=== PATIENT | male | born 1950 | race Caucasian/White ===

== ENCOUNTER 2017-05-26 12:20 | Inpatient (IN) | payer OTHER, BC ==
--- NOTE | 2017-05-26 12:51 | PDOC ---
History of Present Illness - General Chief Complaint: Overdose Stated Complaint: OVERDOSE Time Seen by Provider: 05/26/17 12:48 History Source: Patient, Family (Sister) - History of Present Illness Initial Comments: 05/26/17 13:04 Pt. is a 67 y/o M with PMH of paranoid schizophrenia, HLD, who presents to the ED because there was concern he may have overdosed on his home medication. Patient's sister states that she received a phone call from the patient earlier this morning and he wasn't talking on the other line. She then went to his house to check on him. She found many pill bottles/random pills scattered around the patient. She believes that he may have mixed his pills with alcohol. She states that the patient is currently not acting like himself. Pt. is unable to tell us why he came to the ED. Denies pain, fevers, sob, n/v/d, difficulty breathing. Past History - Travel Traveled outside of the country in the last 30 days: No Close contact w/someone who was outside of country & ill: No - Past Medical History Allergies/Adverse Reactions: Allergies Allergy/AdvReac Type Severity Reaction Status Date / Time No Known Allergies Allergy Verified 05/26/17 12:56 Home Medications: Ambulatory Orders Amitriptyline HCl [Elavil -] 100 mg PO HS 05/26/17 Amlodipine Besylate [Norvasc -] 10 mg PO DAILY 05/26/17 Benztropine Mesylate [Cogentin -] 1 mg PO BID 05/26/17 Chlorpromazine [Thorazine -] 100 mg PO HS 05/26/17 Clonazepam 1 mg PO HS 05/26/17 Perphenazine 8 mg PO DAILY 05/26/17 Rosuvastatin Calcium [Crestor] 10 mg PO DAILY 05/26/17 Triazolam 0.25 mg PO HS 05/26/17 Review of Systems - Review of Systems Able to Perform ROS?: Yes (with help of sister) Comments:: 05/26/17 13:56 CONSTITUTIONAL: Present: altered mental status. Absent: fever, chills, diaphoresis, generalized weakness, malaise, loss of appetite HEENT: Absent: rhinorrhea, nasal congestion, throat pain, throat swelling, difficulty swallowing, mouth swelling, ear pain, eye pain, visual Changes CARDIOVASCULAR: Absent: chest pain, loss of consciousness, palpitations, irregular heart rate, peripheral edema RESPIRATORY: Absent: cough, shortness of breath, dyspnea with exertion, orthopnea, wheezing, stridor, hemoptysis GASTROINTESTINAL: Absent: abdominal pain, abdominal distension, nausea, vomiting, diarrhea, constipation, melena, hematochezia GENITOURINARY: Absent: dysuria, frequency, urgency, hesitancy, hematuria, flank pain, genital pain MUSCULOSKELETAL: Absent: myalgia, arthralgia, joint swelling SKIN: Absent: rash, itching, pallor HEMATOLOGIC/IMMUNOLOGIC: Absent: easy bleeding, easy bruising, lymphadenopathy, frequent infections ENDOCRINE: Absent: unexplained weight gain, unexplained weight loss, heat intolerance, cold intolerance NEUROLOGIC: Absent: headache, focal weakness or paresthesias, dizziness, unsteady gait, seizure, mental status changes, bladder or bowel incontinence PSYCHIATRIC: Absent: anxiety, depression, suicidal or homicidal ideation, hallucinations. *Physical Exam - Physical Exam Comments: 05/26/17 13:54 GENERAL: Well developed, well nourished. Awake and alert x3. No acute distress, breathing easily. O2 sat 94 percent on the monitor. HEENT: Normocephalic, atraumatic. PERRLA, EOMI. No conjunctival pallor. Sclera are non- icteric. Moist mucous membranes. Oropharynx is clear. NECK: Supple. Full ROM. No JVD. Carotid pulses 2+ and symmetric, without bruits. No thyromegaly. No lymphadenopathy. CARDIOVASCULAR: Regular rate and rhythm. No murmurs, rubs, or gallops. Distal pulses are 2+ and symmetric. PULMONARY: No evidence of respiratory distress. Lungs clear to auscultation bilaterally. No wheezing, rales or rhonchi. ABDOMINAL: Soft. Non-tender. Non-distended. No rebound or guarding. No organomegaly. Normoactive bowel sounds. MUSCULOSKELETAL Normal range of motion at all joints. No bony deformities or tenderness. No CVA tenderness. EXTREMITIES: No cyanosis. No clubbing. No edema. No calf tenderness. SKIN: Warm and dry. Normal capillary refill. No rashes. No jaundice. NEUROLOGICAL: Alert, awake, appropriate. Cranial nerves 2-12 intact. No deficits to light touch and temperature in face, upper extremities and lower extremities. No motor deficits in the in face, upper extremities and lower extremities. Normoreflexic in the upper and lower extremities. Normal speech. Toes are down- going bilaterally. Gait is normal without ataxia. PSYCHIATRIC: Though process disjointed. Fair eye contact. Cooperative. ED Treatment Course - LABORATORY CBC & Chemistry Diagram: 05/27/17 06:30 05/27/17 06:30 Medical Decision Making - Medical Decision Making 05/26/17 12:56 Pt. is a 67 y/o M with PMH paranoid schizophrenia, HLD who presents to the ED for possible overdose/AMS after being found with his home medications scattered around him and him not responding. He is currently A&Ox3 however, pt is slow to respond. Pt is taking multiple psych medications will r/o toxicity. Questionable AMS/TIA given phone call with no answer. Will initiate an AMS work up as well. Pt. does drink alcohol 1. CBC, CMP, PT/INR, salycylate, acetaminophen, tricyclic level, UA, Utox 2. Head CT, CXR, EKG 3. IVF 4. Re-evaluate 05/26/17 15:48 Lab work shows an elevated BUN/Cr. Unsure of pt. baseline. Utox is negative. All other tox levels are within normal limits. EKG: Rate 96, NSR, QRS 90, occasional PAC's, Head CT: No acute intracranial hemorrhage, mass effect or hydrocephalus. No compelling evidence of acute transcortical infarction at this time. MRI is more sensitive for detecting acute infarction. CXR: No acute disease. Other than possible RADHA, lab work is unremarkable however patient remains slow in the ED. Sister says that the patient is not at his baseline. Will admit this time for alcoholic encephalopathy. Less likely TIA at this time. Will admit to symphony. 05/26/17 16:[address] Verma. Will take the case for obs. *DC/Admit/Observation/Transfer Diagnosis at time of Disposition: Transient alteration of awareness, Alcoholic encephalopathy - Discharge Dispostion Condition at time of disposition: Stable Admit: Yes - Referrals - Patient Instructions - Post Discharge Activity
[2017-05-26] MEDS ORDERED: SODIUM CHLORIDE 1,000 ML IV STA (12:56)
[2017-05-26 13:28] LABS: BASO % 1.1 % (0-2.0); EOS % 1.1 % (0-4.5); HEMATOCRIT 36.4 % (35.4-49); HEMOGLOBIN 12.4 GM/dL (11.7-16.9); LYMPH % 16.3 % (8-40); MCH 30.3 pg (25.7-33.7); MEAN CELL VOLUME 89.1 fl (80-96); MEAN PLT VOLUME 8.1 fl (7.5-11.1); MONO % 11.9 % (3.8-10.2); NEUT % 69.6 % (42.8-82.8); PLATELET COUNT 199 K/MM3 (134-434); RBC 4.09 M/mm3 (4.00-5.60); RDW 12.9 % (11.9-15.9); WHITE BLOOD COUNT 9.7 K/mm3 (4.0-10.0)
[2017-05-26 13:36] LABS: ACETAMINOPHEN < 10 ug/ml (10.0-30.0); SALICYLATE < 4.0 mg/dl (0.0-30.0)
[2017-05-26 13:37] LABS: ALBUMIN 3.7 g/dl (3.4-5.0); ANION GAP 14 (8-16); BILIRUBIN,TOTAL 0.6 mg/dL (0.2-1.0); BLOOD UREA NITROGEN 30 mg/dL (7-18); CALCIUM 8.8 mg/dL (8.5-10.1); CHLORIDE 101 mmol/L (98-107); CO2 24 mmol/L (21-32); GLUCOSE,RANDOM 98 mg/dL (74-106); SODIUM 139 mmol/L (136-145); TOT PROT 7.5 g/dl (6.4-8.2)
[2017-05-26 13:40] LABS: ALK PHOS 113 U/L (45-117); CREATININE 1.5 mg/dL (0.7-1.3); SGPT/ALT 35 U/L (12-78)
[2017-05-26 13:41] LABS: POTASSIUM 3.9 mmol/L (3.5-5.1); SGOT/AST 33 U/L (15-37)
[2017-05-26 13:50] LABS: INR 0.96 (0.82-1.09); PROTHROMBIN TIME (PATIENT) 10.9 SEC (9.98-11.88)
--- NOTE | 2017-05-26 14:18 | PDOC ---
*Physical Exam - Vital Signs Last Vital Signs Temp Pulse Resp BP Pulse Ox 98.6 F 96 H 18 133/75 100 05/26/17 12:20 05/26/17 12:20 05/26/17 12:20 05/26/17 12:20 05/26/17 13:10 ED Treatment Course - LABORATORY CBC & Chemistry Diagram: 05/26/17 13:00 05/26/17 13:03 - ADDITIONAL ORDERS Additional order review: Laboratory Results 05/26/17 05/26/17 05/26/17 13:03 13:03 13:03 PT with INR 10.90 INR 0.96 Sodium Potassium Chloride Carbon Dioxide Anion Gap BUN Creatinine Creat Clearance w eGFR Random Glucose Calcium Total Bilirubin AST ALT Alkaline Phosphatase Creatine Kinase Creatine Kinase Index CK-MB (CK-2) Troponin I Total Protein Albumin Salicylates < 4.0 Acetaminophen < 10 L Alcohol, Quantitative < 5.0 05/26/17 05/26/17 05/26/17 13:03 13:00 13:00 PT with INR INR Sodium 139 Potassium 3.9 Chloride 101 Carbon Dioxide 24 Anion Gap 14 BUN 30 H Creatinine 1.5 H Creat Clearance w eGFR 46.40 Random Glucose 98 Calcium 8.8 Total Bilirubin 0.6 AST 33 ALT 35 Alkaline Phosphatase 113 Creatine Kinase 219 Cancelled Creatine Kinase Index 0.8 CK-MB (CK-2) 1.885 Troponin I < 0.02 Cancelled Total Protein 7.5 Albumin 3.7 Salicylates Cancelled Acetaminophen Alcohol, Quantitative 05/26/17 13:00 RBC 4.09 MCV 89.1 MCHC 34.0 RDW 12.9 MPV 8.1 Neutrophils % 69.6 Lymphocytes % 16.3 Monocytes % 11.9 H Eosinophils % 1.1 Basophils % 1.1 - RADIOLOGY Radiology Studies Ordered: Category Date Time Status HEAD CT WITHOUT CONTRAST [CT] Stat CT Scan 05/26/17 12:59 Taken CHEST X-RAY PORTABLE* [RAD] Stat Radiology 05/26/17 12:59 Taken Medical Decision Making - Medical Decision Making 05/26/17 14:16 Patient seen and evaluated with the nurse practitioner. I agree with the overall evaluation, assessment, and management with the following summary of visit: 67-year-old male with psychiatric history brought in by family with altered mental status, question nonverbal at the time. Unclear whether patient took extra medications or whether this is presentation of altered mental status. Agree with exam as outlined Altered mental status and tox workup Labs, levels CT head Urinalysis Likely admission 05/26/17 15:[address] head without acute abnormality. still not at baseline, ? alcohol encephalopathy, seems less likely consistent with TIA. will admit overnight for obs until clinically improved *DC/Admit/Observation/Transfer Diagnosis at time of Disposition: Transient alteration of awareness, Alcoholic encephalopathy - Referrals - Patient Instructions - Post Discharge Activity
--- NOTE | 2017-05-26 14:57 | EKG ---
Test Reason : Blood Pressure : / mmHG Vent. Rate : 096 BPM Atrial Rate : 096 BPM P-R Int : 194 ms QRS Dur : 090 ms QT Int : 376 ms P-R-T Axes : 051 -17 032 degrees QTc Int : 475 ms SINUS RHYTHM WITH PREMATURE ATRIAL COMPLEXES OTHERWISE NORMAL ECG WHEN COMPARED WITH ECG OF 03-SEP-2001 11:49, PREMATURE ATRIAL COMPLEXES ARE NOW PRESENT Confirmed by EVAN ROJAS, CHRISSY ([id number]) on 05/26/2017 2:56:31 PM Referred By: Confirmed By:CHRISSY GORDON MD
[2017-05-26] MEDS ORDERED: SODIUM CHLORIDE 1,000 ML IV SCH (20:30)
--- NOTE | 2017-05-26 20:48 | PN ---
Teaching Attending Note Name of Resident: Bertin Arrieta ATTENDING PHYSICIAN STATEMENT I saw and evaluated the patient. I reviewed the resident's note and discussed the case with the resident. I agree with the resident's findings and plan as documented. SUBJECTIVE: CC: slurred speech and change in mental status. PI: obtained from pt and son, was doing well. yesterday he took his meds in afternoon then again in evening by mistake, no SI. this am sister called him, was slurred, then tried again but no response so she drove and found him awake, but not himself, and with his meds bottles on floor. last drink was 3 days ago. denies CP , he remembers the phone ringing but did nto respond. he remember his conversation with his son this am . son says he is better , but cont with slurred speech . no fever or chis, has LE edema which is worse per son today OBJECTIVE: NAD , Awake , alert oriented x3 . slurred speech ( minimal ) , no facial droop, EOMI, round equal pupils reactive to light . minimal JVD . CV: RRR, no MRG Lungs: CTAB ext: 2+ pitting edema on LE . Neuro: slurred speech ( minimal ) , no facial droop, EOMI, round equal pupils reactive to light. strength 5/5 in upper and lower ext proximally and distally, sensation to light touch nl. reflexes 2+ knee jerk and biceps b/l ASSESSMENT AND PLAN: 67 y/o gentleman withh/o HTN, partial colectomy, Bipolar HL, and schizophrenia who presented wit AMS and slurred speech. 1- AMS and slurred speech, already improved . need to r/o stroke. could be due to medications side effects as he took meds twice by mistake last night . he does not have signs of withdrawal. his last drink 3 days ago and his alcohol level is undetectable, unlikely due to alcohol intoxication. No signs of infection - check MRI of brain - hold TCA and benzos - psych consult - monitor on tele - EKG with no ischemic changes 2- LE edema , could be due to Norvasc , but due to JVD can't r/o heart failure . lungs are clear and cxray is clear . - check BNP - check Echo 3- RADHA: not clear of cr base line.could be prerenal, at this point not clear on his volume status . prerenal from voleume depletion or due to mil d CHF - check BNP - renal US - urine electrolytes. - hold off hydrating pt now, will follow tomorrow 4- h/o HTN: cont norvasc 5- Schizophrenia and bipolar . psych consult to adjust meds . Obs
--- NOTE | 2017-05-26 20:53 | HP ---
CHIEF COMPLAINT: "slurred speech" as per pt's sister HISTORY OF PRESENT ILLNESS: 67 y/o M w/PMH of paranoid schizophrenia, insomnia, depression, anxiety, htn, hld presents to the ER for slurred speech as per pt's sister. Pt states he felt at baseline today and had no complaints. According to sister she called pt 30 times and he did not slate picker and she drove from [place] to his house where he opened the door and sister noticed his speech was more slurred than usual and she found a bottle with many pills spilled on the ground. Of note, pt lives alone. According to sister, pt usually has some slurred speech in AM but gets better throughout day. Pt states he remembers the phone "ringing off the hook" but did not answer the phone. He denies having any LOC, falls, fevers, chills, CP, SOB, abd pain, change in bowel movements, dysuria, frequency, LE swelling, focal weakness, sick contacts, or recent travel. He states "I don't know why they [ the family] brought me here". At this time the sister mentions that his speech sounds slurred like it would in the mornings but by this time of day it would normally improve. Pt states he's been taking his meds as prescribed and didn't overdose on any meds. He denies any suicidal ideation or feeling depressed more than usual. He also states his last alcoholic drink was 3 days ago and he drinks approx 1/2 glass of vodka based on his mood. ER course was notable for: (1) Head CT, CXR (2) (3) Recent Travel: denies PAST MEDICAL HISTORY: paranoid schizophrenia, insomnia, depression, anxiety, htn , hld PAST SURGICAL HISTORY: abdominal cyst removal; b/l cataracts Social History: Smoking: smoked in his 20s. Hasn't smoked since then Alcohol: 1/2 glass vodka "based on mood" Drugs: denies Family History: denies any family history Allergies No Known Allergies Allergy (Verified 05/26/17 12:56) HOME MEDICATIONS: Home Medications Medication Instructions Recorded Amitriptyline HCl [Elavil -] 100 mg PO HS 05/26/17 Amlodipine Besylate [Norvasc -] 10 mg PO DAILY 05/26/17 Benztropine Mesylate [Cogentin -] 1 mg PO BID 05/26/17 Chlorpromazine [Thorazine -] 100 mg PO HS 05/26/17 Clonazepam 1 mg PO HS 05/26/17 Perphenazine 8 mg PO DAILY 05/26/17 Rosuvastatin Calcium [Crestor] 10 mg PO DAILY 05/26/17 Triazolam 0.25 mg PO HS 05/26/17 REVIEW OF SYSTEMS CONSTITUTIONAL: Absent: fever, chills, generalized weakness CARDIOVASCULAR: Absent: chest pain, syncope, lightheadedness, peripheral edema RESPIRATORY: Absent: cough, shortness of breath GASTROINTESTINAL: Absent: abdominal pain, abdominal distension, nausea, vomiting, diarrhea, constipation GENITOURINARY: Absent: dysuria, frequency NEUROLOGIC: +"slurred speech" according to sister Absent: focal weakness or paresthesias, dizziness, unsteady gait, seizure, mental status changes, bladder or bowel incontinence PSYCHIATRIC: +depression (at baseline "comes with the territory [of schizophrenia]") Absent: suicidal ideation PHYSICAL EXAMINATION Vital Signs - 24 hr 05/26/17 05/26/17 05/26/17 12:20 13:10 16:30 Temperature 98.6 F Pulse Rate 96 H Pulse Rate [ 96 H Apical] Respiratory 18 20 Rate Blood Pressure 133/75 Blood Pressure 140/75 [Right Arm] O2 Sat by Pulse 94 L 100 97 Oximetry (%) GENERAL: Awake, alert, and fully oriented, in no acute distress. Mildly slurred speech. Obese. HEAD: Normal with no signs of trauma. EYES: Pupils equal, round and reactive to light, extraocular movements intact, sclera anicteric, conjunctiva clear. EARS, NOSE, THROAT: Ears normal, nares patent, Moist mucous membranes. Uvula midline. NECK: Normal range of motion, supple LUNGS: Breath sounds equal, clear to auscultation bilaterally. No wheezes, and no crackles. No accessory muscle use. HEART: Regular rate and rhythm, normal S1 and S2 without murmur, rub or gallop. ABDOMEN: Soft, obese, nontender, not distended, normoactive bowel sounds, no guarding, no rebound. UPPER EXTREMITIES: warm, well-perfused. No clubbing. No peripheral edema. MSK: 5/5 UE and LE strength. LOWER EXTREMITIES: warm, well-perfused. No calf tenderness. 2+ piting edema. NEUROLOGICAL: Cranial nerves II-XII intact. Mildly slurred speech. Gait not observed. PSYCHIATRIC: Cooperative. Good eye contact. Appropriate mood and affect. SKIN: Warm, dry, no ecchymosis noted on UE or LE CBCD WBC 9.7 K/mm3 (4.0-10.0) 05/26/17 13:00 RBC 4.09 M/mm3 (4.00-5.60) 05/26/17 13:00 Hgb 12.4 GM/dL (11.7-16.9) 05/26/17 13:00 Hct 36.4 % (35.4-49) 05/26/17 13:00 MCV 89.1 fl (80-96) 05/26/17 13:00 MCHC 34.0 g/dl (32.0-35.9) 05/26/17 13:00 RDW 12.9 % (11.9-15.9) 05/26/17 13:00 Plt Count 199 K/MM3 (134-434) 05/26/17 13:00 MPV 8.1 fl (7.5-11.1) 05/26/17 13:00 CMP Sodium 139 mmol/L (136-145) 05/26/17 13:03 Potassium 3.9 mmol/L (3.5-5.1) 05/26/17 13:03 Chloride 101 mmol/L (98-107) 05/26/17 13:03 Carbon Dioxide 24 mmol/L (21-32) 05/26/17 13:03 Anion Gap 14 (8-16) 05/26/17 13:03 BUN 30 mg/dL (7-18) H 05/26/17 13:03 Creatinine 1.5 mg/dL (0.7-1.3) H 05/26/17 13:03 Creat Clearance w eGFR 46.40 (>60) 05/26/17 13:03 Random Glucose 98 mg/dL (74-106) 05/26/17 13:03 Calcium 8.8 mg/dL (8.5-10.1) 05/26/17 13:03 Total Bilirubin 0.6 mg/dL (0.2-1.0) 05/26/17 13:03 AST 33 U/L (15-37) 05/26/17 13:03 ALT 35 U/L (12-78) 05/26/17 13:03 Alkaline Phosphatase 113 U/L (45-117) 05/26/17 13:03 Total Protein 7.5 g/dl (6.4-8.2) 05/26/17 13:03 Albumin 3.7 g/dl (3.4-5.0) 05/26/17 13:03 CARDIAC ENZYMES Creatine Kinase 219 IU/L (39-308) 05/26/17 13:03 Troponin I < 0.02 ng/ml (0.00-0.05) 05/26/17 13:03 Imaging: CXR: No acute pathology Head CT: No acute ICH, mass effect, or hydrocephalus. No evidence of acute transcortical infarction at this time. EKG: Sinus rhythm w/PACs @ 96 bpm. QTc 475 ms Active Medications Amlodipine Besylate (Norvasc -) 10 mg PO DAILY LETICIA Aspirin (Ecotrin -) 81 mg PO DAILY LETIC[facility] Benztropine Mesylate (Cogentin -) 1 mg PO BID [facility]IC[facility] Chlorpromazine HCl (Thorazine -) 100 mg PO HS LETICIA Heparin Sodium (Porcine) (Heparin -) 5,000 unit SQ TID LETICIA Perphenazine (Trilafon) 8 mg PO DAILY LETIC[facility] Rosuvastatin Calcium (Crestor -) 10 mg PO HS LETICIA ASSESSMENT/PLAN: 7 y/o M w/PMH of paranoid schizophrenia, insomnia, depression, anxiety, htn, hld presents to the ER for slurred speech as per pt's sister. Being worked up for possible CVA/TIA -Slurred speech secondary to CVA/TIA vs drug (TCA) overdose -CT head neg, will get MRI brain to check for CVA/TIA -f/u TCA levels, utox, UA (for infectious etiology) -f/u lipid panel, TSH, B12, A1C -Echo ordered (also assess for CHF in echo) -start on aspirin 81 mg po qd -c/w rosuvastatin 10 mg po qhs -LE pitting edema secondary to possible CHF -f/u BNP, echo -RADHA -no baseline Cr on file -f/u urine lytes to calculate FeNa -will hold fluids for now and reassess after getting BNP/Echo to assess for CHF -HTN -c/w norvasc 10 mg po qd -Paranoid Schizophrenia -c/w perphenazine 8 mg po qhs, chlorpromazine 100 mg po qhs, benztropine 1 mg po bid (likely for EPS) -psych consult to adjust meds -Insomnia -pt on triazolam and clonazopam, will hold, psych to reassess/adjust meds -Depression -pt on amitriptyline 100 mg po qhs, will hold, psych to reassess/adjust meds -HLD -c/w rosuvastatin 10 mg po qhs -DVT ppx -Heparin 5000 units sq q8h -FEN -No fluids at this time until BNP/Echo seen to assess for CHF -monitor electrolytes, replete as needed -Regular diet -Dispo: -Monitor on tele Visit type - Emergency Visit Emergency Visit: Yes ED Registration Date: 05/26/17 Care time: The patient presented to the Emergency Department on the above date and was hospitalized for further evaluation of their emergent condition. - New Patient This patient is new to me today: Yes Date on this admission: 05/26/17 - Critical Care Critical Care patient: No
[2017-05-26] MEDS ORDERED: AMITRIPTYLINE HCL 50 MG TABLET PO SCH (22:00)
[2017-05-26] MEDS ORDERED: TRIAZOLAM 0.25 MG PO SCH (22:00)
[2017-05-26] MEDS ORDERED: clonazePAM 0.5 MG TABLET PO SCH (22:00)
[2017-05-26 23:11] LABS: URINE APPEARANCE CLEAR; URINE BILIRUBIN NEGATIVE (NEGATIVE); URINE BLOOD NEGATIVE (NEGATIVE); URINE COLOR LTYELLOW; URINE GLUCOSE (UA) NEGATIVE (NEGATIVE); URINE KETONE NEGATIVE (NEGATIVE); URINE LEUK ESTERASE NEGATIVE (NEGATIVE); URINE NITRITE NEGATIVE (NEGATIVE); URINE UROBILINOGEN NEGATIVE mg/dL (0.2-1.0)
[2017-05-26 23:15] LABS: URINE PROTEIN 1+ (NEGATIVE)
[2017-05-26] MEDS: BENZTROPINE MESYLATE 1 MG TABLET (FP) PO SCH (23:15)
[2017-05-26] MEDS: chlorproMAZINE HCL 100 MG TABLET PO SCH (23:15)
[2017-05-26] MEDS: ROSUVASTATIN CA 10 MG TABLET (FP) PO SCH (23:15)
[2017-05-26 23:25] LABS: URINE BACTERIA RARE /hpf (NONE SEEN); URINE MUCUS RARE
[2017-05-27] MEDS: ZOLPIDEM TARTRATE 5 MG TABLET PO ONE (04:01)
--- NOTE | 2017-05-27 06:02 | PN ---
Physical Exam: SUBJECTIVE: Patient seen and examined at bedside, alert and oriented with slurry speak , denies any fever, chills, dizziness, light headedness, chest pain , palpitation SOB, Abdominal pain. OBJECTIVE: Vital Signs Period Temp Pulse Resp BP Sys/Jones Pulse Ox Last 24 Hr 98.6 F 96-110 18-20 133-141/75-90 94-100 GENERAL: Awake, alert, and fully oriented, in no acute distress. Mildly slurred speech. Obese. HEAD: Normal with no signs of trauma. EYES: sclera anicteric, conjunctiva clear. LUNGS: Breath sounds equal, clear to auscultation bilaterally. No wheezes, and no crackles. No accessory muscle use. HEART: Regular rate and rhythm, normal S1 and S2 without murmur, rub or gallop. ABDOMEN: Soft, obese, nontender, not distended, normoactive bowel sounds, no guarding, no rebound. UPPER EXTREMITIES: warm, well-perfused. No clubbing. No peripheral edema. MSK: 5/5 UE and LE strength. LOWER EXTREMITIES: warm, well-perfused. No calf tenderness. 2+ pitting edema. NEUROLOGICAL: Cranial nerves II-XII intact. Mildly slurred speech. Gait not observed. PSYCHIATRIC: Cooperative. Good eye contact. Appropriate mood and affect. SKIN: Warm, dry, no ecchymosis noted on UE or LE Laboratory Results - last 24 hr 05/26/17 05/26/17 05/26/17 13:00 13:00 13:00 WBC 9.7 RBC 4.09 Hgb 12.4 Hct 36.4 MCV 89.1 MCH 30.3 MCHC 34.0 RDW 12.9 Plt Count 199 MPV 8.1 Neutrophils % 69.6 Lymphocytes % 16.3 Monocytes % 11.9 H Eosinophils % 1.1 Basophils % 1.1 PT with INR INR Sodium Potassium Chloride Carbon Dioxide Anion Gap BUN Creatinine Creat Clearance w eGFR Random Glucose Calcium Total Bilirubin AST ALT Alkaline Phosphatase Creatine Kinase Cancelled Creatine Kinase Index CK-MB (CK-2) Troponin I Cancelled B-Natriuretic Peptide Total Protein Albumin Urine Color Urine Appearance Urine pH Ur Specific Simms Urine Protein Urine Glucose (UA) Urine Ketones Urine Blood Urine Nitrite Urine Bilirubin Urine Urobilinogen Ur Leukocyte Esterase Urine WBC (Auto) Urine RBC (Auto) Urine Bacteria Urine Mucus Ur Random Sodium Ur Random Potassium Ur Random Chloride Salicylates Cancelled Acetaminophen Alcohol, Quantitative 05/26/17 05/26/17 05/26/17 13:03 13:03 13:03 WBC RBC Hgb Hct MCV MCH MCHC RDW Plt Count MPV Neutrophils % Lymphocytes % Monocytes % Eosinophils % Basophils % PT with INR 10.90 INR 0.96 Sodium 139 Potassium 3.9 Chloride 101 Carbon Dioxide 24 Anion Gap 14 BUN 30 H Creatinine 1.5 H Creat Clearance w eGFR 46.40 Random Glucose 98 Calcium 8.8 Total Bilirubin 0.6 AST 33 ALT 35 Alkaline Phosphatase 113 Creatine Kinase 219 Creatine Kinase Index 0.8 CK-MB (CK-2) 1.885 Troponin I < 0.02 B-Natriuretic Peptide Total Protein 7.5 Albumin 3.7 Urine Color Urine Appearance Urine pH Ur Specific Simms Urine Protein Urine Glucose (UA) Urine Ketones Urine Blood Urine Nitrite Urine Bilirubin Urine Urobilinogen Ur Leukocyte Esterase Urine WBC (Auto) Urine RBC (Auto) Urine Bacteria Urine Mucus Ur Random Sodium Ur Random Potassium Ur Random Chloride Salicylates Acetaminophen Alcohol, Quantitative < 5.0 05/26/17 05/26/17 05/26/17 13:03 22:48 22:48 WBC RBC Hgb Hct MCV MCH MCHC RDW Plt Count MPV Neutrophils % Lymphocytes % Monocytes % Eosinophils % Basophils % PT with INR INR Sodium Potassium Chloride Carbon Dioxide Anion Gap BUN Creatinine Creat Clearance w eGFR Random Glucose Calcium Total Bilirubin AST ALT Alkaline Phosphatase Creatine Kinase Creatine Kinase Index CK-MB (CK-2) Troponin I B-Natriuretic Peptide Total Protein Albumin Urine Color Ltyellow Urine Appearance Clear Urine pH 5.0 Ur Specific Simms 1.011 Urine Protein 1+ H Urine Glucose (UA) Negative Urine Ketones Negative Urine Blood Negative Urine Nitrite Negative Urine Bilirubin Negative Urine Urobilinogen Negative Ur Leukocyte Esterase Negative Urine WBC (Auto) 1 Urine RBC (Auto) 2 Urine Bacteria Rare Urine Mucus Rare Ur Random Sodium 22 Ur Random Potassium 26.8 Ur Random Chloride 19 Salicylates < 4.0 Acetaminophen < 10 L Alcohol, Quantitative 05/26/17 23:12 WBC RBC Hgb Hct MCV MCH MCHC RDW Plt Count MPV Neutrophils % Lymphocytes % Monocytes % Eosinophils % Basophils % PT with INR INR Sodium Potassium Chloride Carbon Dioxide Anion Gap BUN Creatinine Creat Clearance w eGFR Random Glucose Calcium Total Bilirubin AST ALT Alkaline Phosphatase Creatine Kinase Creatine Kinase Index CK-MB (CK-2) Troponin I B-Natriuretic Peptide 105.06 Total Protein Albumin Urine Color Urine Appearance Urine pH Ur Specific Simms Urine Protein Urine Glucose (UA) Urine Ketones Urine Blood Urine Nitrite Urine Bilirubin Urine Urobilinogen Ur Leukocyte Esterase Urine WBC (Auto) Urine RBC (Auto) Urine Bacteria Urine Mucus Ur Random Sodium Ur Random Potassium Ur Random Chloride Salicylates Acetaminophen Alcohol, Quantitative Active Medications Generic Name Dose Route Start Last Admin Trade Name Freq PRN Reason Stop Dose Admin Amlodipine Besylate 10 mg 05/27/17 10:00 Norvasc - PO DAILY [facility] Aspirin 81 mg 05/27/17 10:00 Ecotrin - PO DAILY [facility] Benztropine Mesylate 1 mg 05/26/17 22:00 05/26/17 23:15 Cogentin - PO 1 mg BID [facility]IC[facility] Administration Chlorpromazine HCl 100 mg 05/26/17 22:00 05/26/17 23:15 Thorazine - PO 100 mg HS [facility]IC[facility] Administration Heparin Sodium (Porcine) 5,000 unit 05/27/17 06:00 Heparin - SQ TID [facility]IC[facility] Perphenazine 8 mg 05/27/17 10:00 Trilafon PO DAILY [facility] Rosuvastatin Calcium 10 mg 05/26/17 22:00 05/26/17 23:15 Crestor - PO 10 mg HS [facility] Administration Zolpidem Tartrate 10 mg 05/27/17 03:02 05/27/17 04:01 Ambien - PO 05/27/17 03:03 10 mg ONCE ONE Administration Active Medications Amlodipine Besylate (Norvasc -) 10 mg PO DAILY [facility] Aspirin (Ecotrin -) 81 mg PO DAILY [facility] Benztropine Mesylate (Cogentin -) 1 mg PO BID [facility] Chlorpromazine HCl (Thorazine -) 100 mg PO HS [facility] Heparin Sodium (Porcine) (Heparin -) 5,000 unit SQ TID [facility] Perphenazine (Trilafon) 8 mg PO DAILY [facility] Rosuvastatin Calcium (Crestor -) 10 mg PO HS [facility] CBC, BMP 05/27/17 06:30 05/27/17 06:30 05.27.17: CT Abdomen/pelvic : 1.Mild, bilateral hydronephrosis. 2. Distended urinary bladder with multiple diverticula suggesting chronic bladder obstruction. 3. Prostatic enlargement 05.26.2017 CXR: No acute pathology Head CT: No acute ICH, mass effect, or hydrocephalus. No evidence of acute transcortical infarction at this time. EKG: Sinus rhythm w/PACs @ 96 bpm. QTc 475 ms ASSESSMENT/PLAN: 7 y/o M w/PMH of paranoid schizophrenia, insomnia, depression, anxiety, htn, hld presents to the ER for slurred speech as per pt's sister. Being worked up for possible CVA/TIA # Slurred speech secondary to CVAvs drug (TCA) overdose * CT head neg, will get MRI brain to check for CVA/TIA * f/u TCA levels, Utox positive for Benzo , UA negative for UTI * f/u lipid panel HDL 89, LDL 60 , TSH 7.64 , B12, A1C 5.6 * Echo EF 60% , normal lVF * start on aspirin 81 mg po qd * c/w rosuvastatin 10 mg po qhs #Hydronephrosis noted on CT scan 2/2 prostate enlargement * Ct abdomen /pelvis with prostate enlargment and bladder thicking with outlet obstruction * insert Arellano * PSA * Urology on board * repeat US after DC , and follow up as out patient . * Start Flomax 0.4 mg po daily # LE pitting edema secondary to possible CHF vs Meds SE * BNP 105, echo with normal EF 60% * Switch norvasc to labetolol 100 BID # RADHA , 2/2 dehydration vs med SE , improved * unknown base line cr * F/u urine lytes to calculate FeNa * improved with oral hydration #HTN * Switch Norvasc 10 mg po qd to Labetolol 100 mg po BID due to edema # Paranoid Schizophrenia * c/w perphenazine 8 mg po qhs, chlorpromazine 100 mg po qhs, benztropine 1 mg po bid (likely for EPS) * psych consult to adjust meds #Insomnia * pt on triazolam and clonazopam, continue , # Depression * pt on amitriptyline 100 mg po qhs, continue # HLD -c/w rosuvastatin 10 mg po qhs # DVT ppx * Heparin 5000 units sq q8h # FEN * No fluids at this time until BNP/Echo seen to assess for CHF * monitor electrolytes, replete as needed * Regular diet # Dispo: * admit to tele , transferred to med surg Visit type - Emergency Visit Emergency Visit: Yes ED Registration Date: 05/26/17 Care time: The patient presented to the Emergency Department on the above date and was hospitalized for further evaluation of their emergent condition. - New Patient This patient is new to me today: Yes Date on this admission: 05/28/17 - Critical Care Critical Care patient: No
[2017-05-27] MEDS: HEPARIN NA (PORCINE) 5,000 UNITS/ML 1ML VIAL SQ SCH ×3 (06:15→22:10)
[2017-05-27] MEDS ORDERED: HEPARIN NA (PORCINE) 5,000 UNITS/ML 1ML VIAL ONE (06:18)
[2017-05-27 07:36] LABS: BASO % 0.5 % (0-2.0); EOS % 1.7 % (0-4.5); HEMATOCRIT 35.1 % (35.4-49); HEMOGLOBIN 11.8 GM/dL (11.7-16.9); LYMPH % 23.5 % (8-40); MCH 30.1 pg (25.7-33.7); MCHC 33.6 g/dl (32.0-35.9); MEAN CELL VOLUME 89.6 fl (80-96); MEAN PLT VOLUME 8.2 fl (7.5-11.1); MONO % 13.1 % (3.8-10.2); NEUT % 61.2 % (42.8-82.8); PLATELET COUNT 172 K/MM3 (134-434); RBC 3.92 M/mm3 (4.00-5.60); RDW 12.8 % (11.9-15.9); WHITE BLOOD COUNT 8.4 K/mm3 (4.0-10.0)
[2017-05-27 08:13] LABS: ALBUMIN 3.3 g/dl (3.4-5.0); ANION GAP 10 (8-16); BLOOD UREA NITROGEN 29 mg/dL (7-18); CALCIUM 7.7 mg/dL (8.5-10.1); CHLORIDE 106 mmol/L (98-107); CHOLESTEROL 158 mg/dL (50-200); CO2 24 mmol/L (21-32); CREATININE 1.1 mg/dL (0.7-1.3); GLUCOSE,RANDOM 97 mg/dL (74-106); POTASSIUM 3.3 mmol/L (3.5-5.1); SODIUM 140 mmol/L (136-145)
[2017-05-27 08:22] LABS: HDL CHOLESTEROL 89 mg/dL (40-60); LDL CHOLESTEROL (ONLY SJRH) 60 mg/dL (5-100); TRIGLYCERIDES 108 mg/dL (35-160)
[2017-05-27 08:24] LABS: COCAINE, UR NEGATIVE ng/ml (CUTOFF=300); METHADONE, UR NEGATIVE ng/ml (CUTOFF=300); OPIATES, URI NEGATIVE ng/ml (CUTOFF=300); PHENCYCLIDINE,URINE NEGATIVE ng/ml (CUTOFF=25); URINE AMPHETAMINES NEGATIVE ng/ml (CUTOFF=500); URINE BARBITURATES NEGATIVE ng/ml (CUTOFF=200)
[2017-05-27 08:30] LABS: URINE BENZODIAZEPINES POSITIVE ng/ml (CUTOFF=200)
[2017-05-27 09:23] LABS: MAGNESIUM 1.7 mg/dL (1.8-2.4)
[2017-05-27] MEDS ORDERED: amLODIPine BESYLATE 10 MG TABLET (FP) PO SCH (10:00)
[2017-05-27] MEDS: ASPIRIN COATED 81 MG TABLET.EC PO SCH (10:28)
[2017-05-27] MEDS: BENZTROPINE MESYLATE 1 MG TABLET (FP) PO SCH ×2 (10:28→22:08)
[2017-05-27] MEDS: PERPHENAZINE 8 MG TABLET PO SCH (10:29)
--- NOTE | 2017-05-27 10:57 | CON.PSY ---
Psychiatry Consult Chief Complaint: My son brought me here. I am ok, I have my oen Psychuatrist at [facility], I see . I di notr take any meds to hurt myself or kill myself. *I am ok. - Previous Psychiatric Treatment Outpatient: Less than 6 mos ago Inpatient: One prior admission - Previous Substance Abuse Treatment Outpatient: None Inpatient: None - Reason for Previous Treatment Reason for Previous Treatment: Biploar Illness, Psychotic Episode - Current Medications Current Medications: Active Medications Amlodipine Besylate (Norvasc -) 10 mg PO DAILY [facility] Last Admin: 05/27/17 10:29 Dose: 10 mg Aspirin (Ecotrin -) 81 mg PO DAILY [facility] Last Admin: 05/27/17 10:28 Dose: 81 mg Benztropine Mesylate (Cogentin -) 1 mg PO BID [facility] Last Admin: 05/27/17 10:28 Dose: 1 mg Chlorpromazine HCl (Thorazine -) 100 mg PO HS [facility] Last Admin: 05/26/17 23:15 Dose: 100 mg Heparin Sodium (Porcine) (Heparin -) 5,000 unit SQ TID [facility] Last Admin: 05/27/17 06:15 Dose: 5,000 unit Perphenazine (Trilafon) 8 mg PO DAILY [facility] Last Admin: 05/27/17 10:29 Dose: 8 mg Rosuvastatin Calcium (Crestor -) 10 mg PO HS [facility] Last Admin: 05/26/17 23:15 Dose: 10 mg - Allergies Allergies: Allergies Allergy/AdvReac Type Severity Reaction Status Date / Time No Known Allergies Allergy Verified 05/26/17 12:56 - Current Living Status Usual Living Arrangement: Alone - Current Mental Status Evaluation Appearance: Well Groomed Attitude: Cooperative - Affect Affect: Constrictive Appropriateness: Appropriate to Content - Mood Mood: Euthymic - Speech/Language Expressive: Coherent - Psychomotor Activity Psychomotor Activity: Normal - Thought Process Thought Process: Intact - Thought Content Hallucinations: Absent Delusions: Absent - Self Perception Self Perception: No Impairment - Cognition Attention: Alert Orientation: Time Memory, Immediate Recall: Intact Memory, Short Term: 2/3 - Concentration Simple Calculations Intact: No - Abstraction Proverb Interpretation: Intact Judgement: Intact - Insight Insight: Intact - Impulse Control Impulse Control: Good Control - Suicidal Ideation Suicidal Ideation: No - Homicidal Ideation Homicidal Ideation: No Assessment/Plan 1) patient is Psychiatrically stable. 2) discharge home. 3) follow up at [facility] with .
[2017-05-27 16:10] VITALS: BMI 34.9
[2017-05-27] MEDS ORDERED: MAGNESIUM 1GM/D5W 100ML - 100 ML IVPB IVPB ONE ×2 (18:06→18:45)
[2017-05-27] MEDS ORDERED: POTASSIUM CHLORIDE 20 MEQ PREMIX IVPB 100 ML IVPB ONE (18:06)
[2017-05-27] MEDS ORDERED: MAGNESIUM 1GM/D5W - 1 GM/100 ML IVPB IVPB ONE (18:45)
[2017-05-27] MEDS: ACETAMINOPHEN 325 MG TABLET (FP) PO PRN (18:45)
[2017-05-27] MEDS: POTASSIUM CHLORIDE 10 MEQ in SODIUM CHLORIDE 100 ML IVPB SCH ×2 (18:46→20:10)
--- NOTE | 2017-05-27 18:47 | PN ---
Teaching Attending Note Name of Resident: Himanshu Soto ATTENDING PHYSICIAN STATEMENT I saw and evaluated the patient. I reviewed the resident's note and discussed the case with the resident. I agree with the resident's findings and plan as documented. SUBJECTIVE: No fever or chills, has no abd pain, nO SOB , no weakness OBJECTIVE: NAD , Awake , alert oriented x3 . speech improved, no facial droop, EOMI, round equal pupils reactive to light . CV: RRR, no MRG Lungs: CTAB ext: 2+ pitting edema on LE . Neuro: no facial droop, EOMI, round equal pupils reactive to light. strength 5/ 5 in upper and lower ext proximally and distally, sensation to light touch nl. reflexes 2+ knee jerk and biceps b/l ASSESSMENT AND PLAN: 67 y/o gentleman with h/o HTN, partial colectomy, Bipolar HL, and schizophrenia who presented wit AMS and slurred speech. 1- AMS and slurred speech,much improved . most likley was due to medication error MRI with no evidence of a stroke no signs of infection - echo reviewed. - cont psych meds and add clonazepam to avoid withdrawal 2- LE edema , probably due to Norvasc Echo with no evidence of low EF , BNP is not elevated change norvasc to labetalol 3- RADHA: improved with no IVF. renal US with b/l hydro. CT obtained---> bladder outlet obstruction . - place angulo - consult urology - check PSA - cont oral hydration 4- h/o HTN: as above 5- Schizophrenia and bipolar . cont antipsychotics resume clonazepam possible dc tomorrow , pending urology consult and PT
[2017-05-27 20:06] LABS: URINE APPEARANCE CLEAR; URINE BILIRUBIN NEGATIVE (NEGATIVE); URINE BLOOD 1+ (NEGATIVE); URINE COLOR LTYELLOW; URINE GLUCOSE (UA) NEGATIVE (NEGATIVE); URINE KETONE NEGATIVE (NEGATIVE); URINE LEUK ESTERASE NEGATIVE (NEGATIVE); URINE NITRITE NEGATIVE (NEGATIVE); URINE UROBILINOGEN NEGATIVE mg/dL (0.2-1.0)
[2017-05-27 20:28] LABS: URINE PROTEIN 1+ (NEGATIVE)
[2017-05-27 20:39] LABS: URINE HYALINE CAST 1 /lpf; URINE MUCUS RARE
[2017-05-27] MEDS ORDERED: ZOLPIDEM TARTRATE 5 MG TABLET PO PRN (22:00)
[2017-05-27] MEDS ORDERED: clonazePAM 0.5 MG TABLET PO SCH (22:00)
[2017-05-27] MEDS: ROSUVASTATIN CA 10 MG TABLET (FP) PO SCH (22:09)
[2017-05-27] MEDS: chlorproMAZINE HCL 100 MG TABLET PO SCH (22:10)
[2017-05-28] MEDS ORDERED: ZOLPIDEM TARTRATE 5 MG TABLET PO ONE (00:42)
[2017-05-28] MEDS: ZOLPIDEM TARTRATE 5 MG TABLET PO ONE (00:51)
[2017-05-28] MEDS ORDERED: HALOPERIDOL LACTATE 5 MG/ML IM ONE (03:30)
--- NOTE | 2017-05-28 04:07 | HOSP ---
Subjective - Review of Symptoms Events since last encounter: Called to nursing station as pt agitated at 1235, asking to leave in the middle of the night. Continues to insist on calling son to come pick him up. Claims his medication is being given to him inappropriately, wants Trilafon, informed he is receiving his normal psychiatric medication. Pt ordered for ambien and informed that his son would be contact in the AM, but no overnight discharge. Pt continues to insist on leaving. Call again to nursing station at 315 AM as multiple condition 10s called on pt. Per nursing, pt has been trying to leave the unit, persistently trying to remove angulo. Pt now with chico hematuria in angulo bag. Security officers present. Pt ordered of Haldol 5mg for sedation. Pt continues to persist about being sent home, informed staff to call his other child. Per nursing, call made to son overnight, no response. Nursing attempted angulo irrigation unsuccessfully , likely due to retained blood clot. Pt likely with trauma to urethra from pulling at angulo. Angulo maintained in place for current time with plan for urology eval in early AM. Called again to patient bedside around 530AM as pt fell onto nurse while attempting to assist with angulo care. Pt increasingly combative, scratching and striking security personal. Pt given Ativan 2mg PO, placed on vest restraints and ordered for 1:1. Angulo with improved flow. Suspicion for possible alcohol withdrawal. Pt endorses last drink was three days ago, 3-4oz of vodka in the evening, which he takes every day. Pt with nonsensical, tangential speech pattern, stating "pollacks and africans are in my house". Pt denies any visual or auditory hallucinations. PE notable for fine tremors BL in hands. Pt with no trauma or pain after controlled fall onto nursing staff. Physical Examination Vital Signs: Vital Signs Temperature 98.2 F 05/27/17 21:25 Pulse Rate 101 H 05/27/17 21:25 Respiratory Rate 20 05/27/17 21:25 Blood Pressure 144/76 05/27/17 21:25 O2 Sat by Pulse Oximetry (%) 97 05/27/17 15:00 Labs: CBC, BMP 05/27/17 06:30 05/27/17 06:30 Visit type - Emergency Visit Emergency Visit: Yes ED Registration Date: 05/26/17 Care time: The patient presented to the Emergency Department on the above date and was hospitalized for further evaluation of their emergent condition. - New Patient This patient is new to me today: Yes Date on this admission: 05/28/17 - Critical Care Critical Care patient: No
[2017-05-28] MEDS ORDERED: LORazepam 1 MG TABLET PO ONE ×2 (05:30→06:00)
[2017-05-28] MEDS: HEPARIN NA (PORCINE) 5,000 UNITS/ML 1ML VIAL SQ SCH ×3 (06:03→21:18)
[2017-05-28 07:38] LABS: BASO % 0.3 % (0-2.0); EOS % 1.1 % (0-4.5); HEMATOCRIT 32.9 % (35.4-49); HEMOGLOBIN 11.2 GM/dL (11.7-16.9); LYMPH % 8.8 % (8-40); MCH 30.4 pg (25.7-33.7); MEAN CELL VOLUME 89.6 fl (80-96); MEAN PLT VOLUME 8.1 fl (7.5-11.1); MONO % 10.8 % (3.8-10.2); PLATELET COUNT 154 K/MM3 (134-434); RBC 3.67 M/mm3 (4.00-5.60); RDW 12.6 % (11.9-15.9); WHITE BLOOD COUNT 10.7 K/mm3 (4.0-10.0)
[2017-05-28 07:56] LABS: ALBUMIN 3.2 g/dl (3.4-5.0); ANION GAP 8 (8-16); BLOOD UREA NITROGEN 15 mg/dL (7-18); CHLORIDE 105 mmol/L (98-107); CO2 25 mmol/L (21-32); POTASSIUM 3.2 mmol/L (3.5-5.1); SGOT/AST 29 U/L (15-37); SODIUM 138 mmol/L (136-145)
[2017-05-28 07:59] LABS: ALK PHOS 107 U/L (45-117); BILIRUBIN,TOTAL 0.8 mg/dL (0.2-1.0); GLUCOSE,RANDOM 109 mg/dL (74-106); SGPT/ALT 25 U/L (12-78); TOT PROT 6.4 g/dl (6.4-8.2)
[2017-05-28] MEDS ORDERED: POTASSIUM CHLORIDE TABS 20 MEQ TABLET.ER (FP) PO ONE (08:49)
--- NOTE | 2017-05-28 08:53 | CON.GU ---
Consult - History of Present Illness History of Present Illness: 67 yo male schizophrenic, admitted with slurred speach. Noted to have bilateral hydronephrosis on CT scan with distended bladder, enlarged prostate and angulo cath inserted. Overnight was pulling on angulo and now with gross hematuria and angulo not draining. No prior history as per pt - Alcohol/Substance Use Hx Alcohol Use: No - Smoking History Smoking history: Never smoked Have you smoked in the past 12 months: No - Social History Usual Living Arrangement: Alone Home Medications - Allergies Allergies/Adverse Reactions: Allergies Allergy/AdvReac Type Severity Reaction Status Date / Time No Known Allergies Allergy Verified 05/26/17 12:56 - Home Medications Home Medications: Ambulatory Orders Amitriptyline HCl [Elavil -] 100 mg PO HS 05/26/17 Amlodipine Besylate [Norvasc -] 10 mg PO DAILY 05/26/17 Benztropine Mesylate [Cogentin -] 1 mg PO BID 05/26/17 Chlorpromazine [Thorazine -] 100 mg PO HS 05/26/17 Clonazepam 1 mg PO HS 05/26/17 Perphenazine 8 mg PO DAILY 05/26/17 Rosuvastatin Calcium [Crestor] 10 mg PO DAILY 05/26/17 Triazolam 0.25 mg PO HS 05/26/17 Review of Systems - Review of Systems Genitourinary: reports: Hematuria Physical Exam- Vital Signs: Vital Signs Temperature 99.1 F 05/28/17 06:00 Pulse Rate 101 H 05/28/17 06:00 Respiratory Rate 20 05/28/17 06:00 Blood Pressure 138/95 05/28/17 06:00 O2 Sat by Pulse Oximetry (%) 97 05/27/17 15:00 Renal/: Yes: Angulo Present (but dislodged), Hematuria Labs: CBC, BMP 05/28/17 06:00 05/28/17 06:00 Imaging - Results Cat Scan: Report Reviewed Assessment/Plan Gross Hematuria Urinary retention 20fr [address] irrigate angulo prn will start flomax
[2017-05-28] MEDS ORDERED: PT OWN MED DRAWER 7, Y5N ONE ×2 (09:58→21:11)
[2017-05-28] MEDS: TAMSULOSIN HCL 0.4 MG CAP.ER.24H (FP) PO SCH (10:00)
[2017-05-28] MEDS ORDERED: LABETALOL HCL 100 MG TABLET (FP) PO SCH ×2 (10:00→14:00)
[2017-05-28] MEDS: BENZTROPINE MESYLATE 1 MG TABLET (FP) PO SCH ×2 (10:01→21:18)
[2017-05-28] MEDS: PERPHENAZINE 8 MG TABLET PO SCH (10:01)
[2017-05-28] MEDS: ASPIRIN COATED 81 MG TABLET.EC PO SCH (10:01)
[2017-05-28] MEDS: LABETALOL HCL 100 MG TABLET (FP) PO SCH ×2 (10:01→21:19)
[2017-05-28] MEDS: SENNOSIDES/DOCUSATE COMBO (SENNA PLUS) TABLET (UD) PO SCH ×2 (11:52→21:19)
--- NOTE | 2017-05-28 15:16 | PN ---
Addendum entered and electronically signed by Corey Verma, RESIDENT 05/28/17 15: 53: Son is considering SNF choice and will let us know tomorrow Original Note: Physical Exam: SUBJECTIVE: Overnight events noted. Pt was confused but less agitated and stated he needs to go home. No other complaints. OBJECTIVE: Vital Signs Period Temp Pulse Resp BP Sys/Jones Pulse Ox Last 24 Hr 97.7 F-99.1 F 97-104 20-24 121-144/60-95 92 GENERAL: Awake, alert, but not oriented, yelena on, in no acute distress. LUNGS: CTAB HEART: RRR, normal S1 and S2 without murmur, rub or gallop. ABDOMEN: Soft, obese, nontender, not distended, normoactive bowel sounds, no guarding, no rebound. UPPER EXTREMITIES: warm, well-perfused. No clubbing. No peripheral edema. MSK: 5/5 UE and LE strength. LOWER EXTREMITIES: warm, well-perfused. No calf tenderness. 2+ pitting edema. NEUROLOGICAL: Cranial nerves II-XII intact. Mildly slurred speech. Gait not observed. PSYCHIATRIC: Confused, slightly agitated SKIN: Warm, dry, no ecchymosis noted on UE or LE Laboratory Results - last 24 hr 05/27/17 05/28/17 05/28/17 18:00 06:00 06:00 WBC 10.7 H RBC 3.67 L Hgb 11.2 L Hct 32.9 L MCV 89.6 MCH 30.4 MCHC 34.0 RDW 12.6 Plt Count 154 MPV 8.1 Neutrophils % 79.0 D Lymphocytes % 8.8 D Monocytes % 10.8 H Eosinophils % 1.1 Basophils % 0.3 Sodium 138 Potassium 3.2 L Chloride 105 Carbon Dioxide 25 Anion Gap 8 BUN 15 D Creatinine 1.0 Creat Clearance w eGFR > 60 Random Glucose 109 H Calcium 8.0 L Total Bilirubin 0.8 D AST 29 ALT 25 D Alkaline Phosphatase 107 Total Protein 6.4 Albumin 3.2 L Urine Color Ltyellow Urine Appearance Clear Urine pH 6.0 Ur Specific [place] 1.010 Urine Protein 1+ H Urine Glucose (UA) Negative Urine Ketones Negative Urine Blood 1+ H Urine Nitrite Negative Urine Bilirubin Negative Urine Urobilinogen Negative Ur Leukocyte Esterase Negative Urine WBC (Auto) 1 Urine RBC (Auto) 12 Hyaline Casts 1 Urine Mucus Rare Active Medications Generic Name Dose Route Start Last Admin Trade Name Smita PRN Reason Stop Dose Admin Acetaminophen 650 mg 05/27/17 18:28 05/27/17 18:45 Tylenol - PO 650 mg Q6H PRN Administration PAIN LEVEL 4 - 6 Aspirin 81 mg 05/27/17 10:00 05/28/17 10:01 Ecotrin - PO 81 mg DAILY [facility] Administration Benztropine Mesylate 1 mg 05/26/17 22:00 05/28/17 10:01 Cogentin - PO 1 mg BID [facility] Administration Chlorpromazine HCl 100 mg 05/26/17 22:00 05/27/17 22:10 Thorazine - PO 100 mg HS [facility] Administration Clonazepam 1 mg 05/27/17 22:00 05/27/17 22:09 Klonopin - PO 1 mg HS [facility] Administration Heparin Sodium (Porcine) 5,000 unit 05/27/17 06:00 05/28/17 14:12 Heparin - SQ 5,000 unit TID [facility] Administration Labetalol HCl 100 mg 05/28/17 10:00 05/28/17 10:01 Normodyne - PO 100 mg BID [facility] Administration Perphenazine 8 mg 05/27/17 10:00 05/28/17 10:01 Trilafon PO 8 mg DAILY [facility] Administration Rosuvastatin Calcium 10 mg 05/26/17 22:00 05/27/17 22:09 Crestor - PO 10 mg HS [facility] Administration Senna/Docusate Sodium 1 tablet 05/28/17 11:30 05/28/17 11:52 Pericolace - PO 1 tablet BID [facility] Administration Tamsulosin HCl 0.8 mg 05/28/17 09:00 05/28/17 10:00 Flomax - PO 0.8 mg DAILY@0830 [facility] Administration ASSESSMENT/PLAN: 7 y/o M w/PMH of paranoid schizophrenia, insomnia, depression, anxiety, htn, hld presents to the ER for slurred speech as per pt's sister. Being worked up for possible CVA/TIA #acute AMS * Likely 2/2 sundowning vs. acute delirium * Frequent re-orientation #Hydronephrosis noted on CT scan 2/2 prostate enlargement * Cont Flomax 0.4 mg po daily * s/p 3 way angulo re-insertion w/ gross hematuria # Slurred speech secondary to CVA vs drug (TCA) overdose * All cardiac and neurologic workup has been negative * Cont. aspirin 81 mg po qd and rosuvastatin 10 mg po qhs * PT # LE pitting edema secondary to possible CHF vs Meds SE * Switch norvasc to labetolol 100 BID # RADHA , 2/2 dehydration vs med SE , improved * resolved #HTN * Switch Norvasc 10 mg po qd to Labetolol 100 mg po BID due to edema # Paranoid Schizophrenia * c/w perphenazine 8 mg po qhs, chlorpromazine 100 mg po qhs, benztropine 1 mg po bid (likely for EPS) #Insomnia * Cont. ambien # Depression * pt on amitriptyline 100 mg po qhs, continue # HLD -c/w rosuvastatin 10 mg po qhs # DVT ppx * Heparin 5000 units sq q8h # FEN * No fluids at this time until BNP/Echo seen to assess for CHF * monitor electrolytes, replete as needed * Regular diet * # Dispo: * Currently 1:1 obs due to delirium and agitation * Gross hematuria 2/2 angulo insertion trauma * Plan for discharge tomorrow after d/c angulo Visit type - Emergency Visit Emergency Visit: No - New Patient This patient is new to me today: No - Critical Care Critical Care patient: No
--- NOTE | 2017-05-28 15:19 | PN ---
Teaching Attending Note Name of Resident: Corey Verma ATTENDING PHYSICIAN STATEMENT I saw and evaluated the patient. I reviewed the resident's note and discussed the case with the resident. I agree with the resident's findings and plan as documented. SUBJECTIVE: no fever or chills. was agitated over night . pulled hi sfoley . this am , he is still confused , and not cooperative OBJECTIVE: NAD , Awake ,not oriented . speech improved, no facial droop, EOMI, round equal pupils reactive to light . CV: RRR, no MRG Lungs: CTAB ext: 2+ pitting edema on LE improved . Neuro: no facial droop, EOMI, round equal pupils reactive to light. strength 5/ 5 in upper and lower ext proximally and distally, sensation to light touch nl. reflexes 2+ knee jerk and biceps b/l ASSESSMENT AND PLAN: 67 y/o gentleman with h/o HTN, partial colectomy, Bipolar HL, and schizophrenia who presented wit AMS and slurred speech. 1- AMS and slurred speech,much improved .no evidence of stroke . No signs of infection. with all this agitation, there is strong suspicion for alcohol withdrawal ( case d/w son today, who indicates he has been drinking for past few days ) - start treatment for alcohol withdrawal with PRN ativan - dc evening dose of clonazepam 2- LE edema , probably due to Norvasc Echo with no evidence of low EF , BNP is not elevated labetalol instead of norvasc 3- RADHA: improved with no IVF. renal US with b/l hydro. angulo replaced today. hematuria due to trauma of pulling. cont flomax. remove angulo when urine clears. d/w Dr. Landon 4- h/o HTN: as above 5- Schizophrenia and bipolar . cont antipsychotics dispo : pending treatment for hematuria and acute alcohol withdrawal
[2017-05-28] MEDS ORDERED: LORazepam 1 MG TABLET PO PRN (15:20)
[2017-05-28] MEDS ORDERED: chlordiazePOXIDE HCL 25 MG CAPSULE PO PRN (15:51)
[2017-05-28] MEDS ORDERED: chlordiazePOXIDE HCL 25 MG CAPSULE PO ONE (15:51)
[2017-05-28] MEDS ORDERED: ZOLPIDEM TARTRATE 5 MG TABLET PO PRN (15:53)
--- NOTE | 2017-05-28 15:58 | CONSULT ---
Consult Detox [facility] Reason for Current Admission/Consult: alcohol use disorder, ams r/o alcohol withdrawal Referred by:: shirley rodriguez MD - History History of Present Illness: 67 yo m admitted with AMS, reports drinking 1-2 pints vodka daily although miminimizes use and does nto feel he has a problem, was tarted on libirum detox with great improvement in mental status now a and ox2 although in denieal. reports treatment in past, does nto want teatment now PMHX psychaitric illness, no si at thsi time, no h/o seizurres or DTS. denies Alcohol withdrawal syndrome when he does nto drink but appears still tremulous after detox on current medication and reports insomnia - History Source History Provided By: Patient, Medical Record, Caregiver Limitations to Obtaining History: No Limitations - Alcohol/Substance Use Hx Alcohol Use: Yes (1-2 pints vodka daily) Hx Substance Use: No Hx Substance Use Treatment: Yes (?in [place] many yeas ago?) - Current Drug/Alcohol Use Alcohol Route: Oral Frequency: Daily Amount used: 1-2 pints vodka Age of first use: 17 Date of Last Use: 05/25/17 - Significant Medical Findings: 67 yo m admitted with AMS, found to be hypokalemic, elevated TSh h/o psychiatric illness syptoms imporved with libirum detox, now has cought urti, still termulous CIWA Score - CIWA Score Nausea/Vomitin-Mild Nausea/No Vomiting Muscle Tremors: 2 Anxiety: 1-Mildly Anxious Agitation: 1-Slight > Activity Paroxysmal Sweats: No Perspiration Orientation: 1-Uncertain about Date Tacttile Disturbances: 1-Very Mild Itch/Numbness Auditory Disturbances: 0-None Visual Disturbances: 0-None Headache: 1-Very Mild CIWA-Ar Total Score: 8 Assessment Plan - Diagnosis (1) Alcohol dependence with uncomplicated withdrawal Status: Acute (2) Anemia Status: Acute (3) Hypoalbuminemia Status: Acute (4) Hypokalemia Status: Acute (5) Hypothyroidism Status: Acute (6) Malnutrition Status: Acute - Plan Plan: 67 yo m with h.o chroninc alcoholism, ams after not drinking repsonsive to libirum ad fluids, k supplementation and mvi. recommend trasnfer to inpatient rehab at [facility] for spsychaitric care and alcohol treatment if patien is in agreement, check if bed available and insuance accepted first. Candelario Clayton MD [phone] - Medication Detox Regimen/Protocol: Librium
[2017-05-28] MEDS: chlordiazePOXIDE HCL 25 MG CAPSULE PO SCH ×2 (16:04→22:12)
[2017-05-28] MEDS: ACETAMINOPHEN 325 MG TABLET (FP) PO PRN (16:06)
[2017-05-28] MEDS ORDERED: MAGNESIUM OXIDE 400 MG TABLET (FP) PO ONE (16:12)
[2017-05-28] MEDS ORDERED: LIDOCAINE HCL 2% JELLY (5 ML/TUBE) TP ONE (16:30)
[2017-05-28] MEDS ORDERED: MAGNESIUM HYDROX 2400MG/30ML ORAL SUSPENSION 30 ML CUP PO ONE (17:15)
[2017-05-28] MEDS: BENZOCAINE/MENTH/CETYLPYRD CL 1 EACH LOZENGE MM PRN (21:17)
[2017-05-28] MEDS: POTASSIUM CHLORIDE TABS 20 MEQ TABLET.ER (FP) PO SCH (21:18)
[2017-05-28] MEDS: ROSUVASTATIN CA 10 MG TABLET (FP) PO SCH (21:18)
[2017-05-28] MEDS: chlorproMAZINE HCL 100 MG TABLET PO SCH (21:19)
[2017-05-28] MEDS: THIAMINE HCL 100 MG TABLET (FP) PO SCH (21:20)
[2017-05-28] MEDS: MAGNESIUM HYDROX 2400MG/30ML ORAL SUSPENSION 30 ML CUP PO PRN (23:03)
[2017-05-29] MEDS: chlordiazePOXIDE HCL 25 MG CAPSULE PO SCH ×4 (05:00→22:01)
[2017-05-29] MEDS: HEPARIN NA (PORCINE) 5,000 UNITS/ML 1ML VIAL SQ SCH ×3 (06:20→21:58)
[2017-05-29] MEDS: BENZOCAINE/MENTH/CETYLPYRD CL 1 EACH LOZENGE MM PRN ×2 (06:24→22:01)
[2017-05-29 07:40] LABS: HEMATOCRIT 32.1 % (35.4-49); HEMOGLOBIN 10.8 GM/dL (11.7-16.9); MCH 30.1 pg (25.7-33.7); MCHC 33.5 g/dl (32.0-35.9); MEAN CELL VOLUME 89.8 fl (80-96); MEAN PLT VOLUME 8.1 fl (7.5-11.1); PLATELET COUNT 142 K/MM3 (134-434); RBC 3.58 M/mm3 (4.00-5.60); RDW 12.5 % (11.9-15.9); WHITE BLOOD COUNT 9.6 K/mm3 (4.0-10.0)
[2017-05-29 08:01] LABS: CHLORIDE 106 mmol/L (98-107); POTASSIUM 3.5 mmol/L (3.5-5.1); SODIUM 139 mmol/L (136-145)
[2017-05-29 08:08] LABS: ANION GAP 11 (8-16); BLOOD UREA NITROGEN 13 mg/dL (7-18); CALCIUM 7.5 mg/dL (8.5-10.1); CO2 22 mmol/L (21-32); CREATININE 0.9 mg/dL (0.7-1.3); GLUCOSE,RANDOM 88 mg/dL (74-106); MAGNESIUM 2.1 mg/dL (1.8-2.4)
[2017-05-29] MEDS ORDERED: PT OWN MED DRAWER 7, Y5N ONE (09:23)
[2017-05-29] MEDS: BENZTROPINE MESYLATE 1 MG TABLET (FP) PO SCH ×2 (09:55→21:58)
[2017-05-29] MEDS: ASPIRIN COATED 81 MG TABLET.EC PO SCH (09:55)
[2017-05-29] MEDS: TAMSULOSIN HCL 0.4 MG CAP.ER.24H (FP) PO SCH (09:55)
[2017-05-29] MEDS: POTASSIUM CHLORIDE TABS 20 MEQ TABLET.ER (FP) PO SCH ×2 (09:56→21:59)
[2017-05-29] MEDS: PRENATAL VITAMINS W/ FOLIC ACID TABLET (FP) PO SCH (09:56)
[2017-05-29] MEDS: SENNOSIDES/DOCUSATE COMBO (SENNA PLUS) TABLET (UD) PO SCH ×2 (09:56→22:00)
[2017-05-29] MEDS: PERPHENAZINE 8 MG TABLET PO SCH (09:57)
[2017-05-29] MEDS: LABETALOL HCL 100 MG TABLET (FP) PO SCH ×2 (09:58→21:59)
[2017-05-29] MEDS: ACETAMINOPHEN 325 MG TABLET (FP) PO PRN (11:33)
--- NOTE | 2017-05-29 15:48 | PN ---
Progress Note (short form) - Note Progress Note: Subjective: no fever or chills , no pain, son feels father is at his base line Objective: Vital Signs: Last Vital Signs Temp Pulse Resp BP Pulse Ox 98.1 F 91 H 20 100/63 94 L 05/29/17 14:00 05/29/17 14:00 05/29/17 14:00 05/29/17 14:00 05/29/17 09:00 Laboratory Results - last 24 hr 05/29/17 05/29/17 06:00 06:00 WBC 9.6 RBC 3.58 L Hgb 10.8 L Hct 32.1 L MCV 89.8 MCH 30.1 MCHC 33.5 RDW 12.5 Plt Count 142 MPV 8.1 Sodium 139 Potassium 3.5 Chloride 106 Carbon Dioxide 22 Anion Gap 11 BUN 13 Creatinine 0.9 Random Glucose 88 Calcium 7.5 L Magnesium 2.1 D Physical Exam: NAD, Awake comfortable , knows he is in hospital, age, and month/yr CV: RRR, no MRG Lungs: CTAB Ext: 1+ pitting edema on LE improved . angulo bag with pin urine ASSESSMENT AND PLAN: 67 y/o gentleman with h/o HTN, partial colectomy, Bipolar HL, and schizophrenia who presented wit AMS and slurred speech. 1- AMS and slurred speech, due to alcohol withdrawal . much imporved with benzos - cont librium detox - folic and thiamine 2- LE edema , probably due to Norvasc, improved after dc med Echo with no evidence of low EF , BNP is not elevated cont labetalol instead of norvasc 3- RADHA: resolved renal US with b/l hydro. cont ofley, still with pink urine cont flomax. remove angulo when urine clears. 4- h/o HTN: as above 5- Schizophrenia and bipolar . cont antipsychotics f/u wiht psych as outpt dispo : to rehab after detox plan was d/w son Mannie and pt sister at bed side Visit type - Emergency Visit Emergency Visit: Yes ED Registration Date: 05/28/17 Care time: The patient presented to the Emergency Department on the above date and was hospitalized for further evaluation of their emergent condition. - New Patient This patient is new to me today: No - Critical Care Critical Care patient: No
[2017-05-29] MEDS: ROSUVASTATIN CA 10 MG TABLET (FP) PO SCH (21:58)
[2017-05-29] MEDS: chlorproMAZINE HCL 100 MG TABLET PO SCH (22:00)
[2017-05-29] MEDS: THIAMINE HCL 100 MG TABLET (FP) PO SCH (22:01)
[2017-05-30] MEDS: HEPARIN NA (PORCINE) 5,000 UNITS/ML 1ML VIAL SQ SCH ×3 (06:03→21:22)
[2017-05-30] MEDS: chlordiazePOXIDE HCL 25 MG CAPSULE PO SCH ×2 (06:04→10:11)
--- NOTE | 2017-05-30 07:04 | PN ---
Physical Exam: SUBJECTIVE: Patient seen and examined at bedside. complain of cough dry x 3 days . no acute evennys over night , Angulo in place with hematuria. denies any fever, chills, N/V/D/C. OBJECTIVE: Vital Signs Period Temp Pulse Resp BP Sys/Jones Pulse Ox Last 24 Hr 98.1 F-99.2 F 91-102 20-20 95-134/49-68 94-94 GENERAL: Awake, alert, and fully oriented, in no acute distress.obese. HEAD: Normal with no signs of trauma. EYES: sclera anicteric, conjunctiva clear. LUNGS: Breath sounds equal, clear to auscultation bilaterally. No wheezes, and no crackles. No accessory muscle use. HEART: Regular rate and rhythm, normal S1 and S2 without murmur, rub or gallop. ABDOMEN: Soft, obese, nontender, not distended, normoactive bowel sounds, no guarding, no rebound. angulo in place with hematuria UPPER EXTREMITIES: warm, well-perfused. No clubbing. No peripheral edema. MSK: 5/5 UE and LE strength. LOWER EXTREMITIES: warm, well-perfused. No calf tenderness. no edema. NEUROLOGICAL: Cranial nerves II-XII intact. Mildly slurred speech. Gait not observed. PSYCHIATRIC: Cooperative. Good eye contact. Appropriate mood and affect. SKIN: Warm, dry, no ecchymosis noted on UE or LE Laboratory Results - last 24 hr 05/29/17 05/29/17 06:00 06:00 WBC 9.6 RBC 3.58 L Hgb 10.8 L Hct 32.1 L MCV 89.8 MCH 30.1 MCHC 33.5 RDW 12.5 Plt Count 142 MPV 8.1 Sodium 139 Potassium 3.5 Chloride 106 Carbon Dioxide 22 Anion Gap 11 BUN 13 Creatinine 0.9 Random Glucose 88 Calcium 7.5 L Magnesium 2.1 D Active Medications Generic Name Dose Route Start Last Admin Trade Name Freq PRN Reason Stop Dose Admin Acetaminophen 650 mg 05/27/17 18:28 05/29/17 11:33 Tylenol - PO 650 mg Q6H PRN Administration PAIN LEVEL 4 - 6 Aspirin 81 mg 05/27/17 10:00 05/29/17 09:55 Ecotrin - PO 81 mg DAILY LETICIA Administration Benzocaine/Menthol 1 each 05/28/17 20:41 05/29/17 22:01 Cepacol Lozenge - MM 1 each PRN PRN Administration SORE THROAT Benztropine Mesylate 1 mg 05/26/17 22:00 05/29/17 21:58 Cogentin - PO 1 mg BID LETICIA Administration Chlordiazepoxide HCl 25 mg 05/29/17 17:00 05/30/17 06:04 Librium - PO 05/30/17 11:01 25 mg [id number] LETICIA Administration Chlordiazepoxide HCl 15 mg 05/30/17 17:00 Librium - PO 05/31/17 11:01 [id number] LETICIA Chlordiazepoxide HCl 25 mg 05/28/17 15:51 05/29/17 06:24 Librium - PO 05/31/17 15:50 25 mg Q4H PRN Administration WITHDRAWAL(CONT SUBST) Chlorpromazine HCl 100 mg 05/26/17 22:00 05/29/17 22:00 Thorazine - PO 100 mg HS LETICIA Administration Folic Acid 1 mg 05/30/17 10:00 Folic Acid - PO DAILY LETICIA Heparin Sodium (Porcine) 5,000 unit 05/27/17 06:00 05/30/17 06:03 Heparin - SQ 5,000 unit TID LETICIA Administration Labetalol HCl 100 mg 05/28/17 10:00 05/29/17 21:59 Normodyne - PO 100 mg BID LETICIA Administration Magnesium Hydroxide 30 ml 05/28/17 17:15 05/28/17 23:03 Milk Of Magnesia - PO 30 ml DAILY PRN Administration CONSTIPATION Perphenazine 8 mg 05/27/17 10:00 05/29/17 09:57 Trilafon PO 8 mg DAILY LETICIA Administration Potassium Chloride 20 meq 05/28/17 22:00 05/29/17 21:59 K-Dur - PO 20 meq BID LETICIA Administration Multivit/Folic Acid/Iron 1 tab 05/29/17 10:00 05/29/17 09:56 Vitamins (Sjr) - PO 1 tab DAILY LETICIA Administration Rosuvastatin Calcium 10 mg 05/26/17 22:00 05/29/17 21:58 Crestor - PO 10 mg HS LETICIA Administration Senna/Docusate Sodium 1 tablet 05/28/17 11:30 05/29/17 22:00 Pericolace - PO 1 tablet BID LETICIA Administration Tamsulosin HCl 0.8 mg 05/28/17 09:00 05/29/17 09:55 Flomax - PO 0.8 mg DAILY@0830 LETICIA Administration Thiamine HCl 100 mg 05/28/17 22:00 05/29/17 22:01 Vitamin B1 - PO 100 mg HS LETICIA Administration Zolpidem Tartrate 5 mg 05/28/17 15:53 Ambien - PO HS PRN INSOMNIA CBC, BMP 05/30/17 06:30 05/29/17 06:00 ASSESSMENT/PLAN: 7 y/o M w/PMH of paranoid schizophrenia, insomnia, depression, anxiety, htn, hld presents to the ER for slurred speech as per pt's sister. Being worked up for possible CVA/TIA #acute AMS likely 2/2 alcohol withdrawal, improved * no withdrawal symptoms currently * continue libirium protocol * continue thiamin and folic acid * Frequent re-orientation #Hydronephrosis noted on CT scan 2/2 prostate enlargement * Cont Flomax 0.8 mg po daily * s/p 3 way angulo re-insertion w/ gross hematuria * failed DC Angulo today and voiding trial 1400 cc bladder retention * renensert angulo # Slurred speech secondary to alcohol abuse , resolved * All cardiac and neurologic workup has been negative * Cont. aspirin 81 mg po qd and rosuvastatin 10 mg po qhs * PT # Couph , dry non productive , likley 2/2 viral URI * started on Rubbitussin 10 mg Q6hr po * starte abx if no improve after 10 days # Anemia likely 2/2 blood loss hematuria ,monitor * Monitor H/H # constipation * on Senna BID , Milf of mag daily * # LE pitting edema secondary to Meds SE Norvasc , improved * Switch norvasc to labetolol 100 BID # RADHA , 2/2 volum depletion vs med SE , improved #HTN, controlled * Switch Norvasc 10 mg po qd to Labetolol 100 mg po BID due to edema # Paranoid Schizophrenia, stable today, * c/w perphenazine 8 mg po qhs, chlorpromazine 100 mg po qhs, benztropine 1 mg po bid (likely for EPS) * F/U as it patient #Insomnia * DC ambien * sleep hygiene # Depression * continue on amitriptyline 100 mg po qhs, # HLD -c/w rosuvastatin 10 mg po qhs # DVT ppx * Heparin 5000 units sq q8h # FEN * No fluids * monitor electrolytes, replete as needed * Regular diet * # Dispo: * Gross hematuria 2/2 angulo insertion trauma, resolved * Plan for discharge tomorrow after d/c angulo Visit type - Emergency Visit Emergency Visit: Yes ED Registration Date: 05/28/17 Care time: The patient presented to the Emergency Department on the above date and was hospitalized for further evaluation of their emergent condition. - New Patient This patient is new to me today: No - Critical Care Critical Care patient: No - Discharge Referral Referred to [facility] No
[2017-05-30 07:48] LABS: HEMATOCRIT 35.2 % (35.4-49); HEMOGLOBIN 11.5 GM/dL (11.7-16.9); MCH 29.8 pg (25.7-33.7); MCHC 32.8 g/dl (32.0-35.9); MEAN CELL VOLUME 90.9 fl (80-96); MEAN PLT VOLUME 8.1 fl (7.5-11.1); PLATELET COUNT 167 K/MM3 (134-434); RBC 3.87 M/mm3 (4.00-5.60); RDW 12.7 % (11.9-15.9); WHITE BLOOD COUNT 11.6 K/mm3 (4.0-10.0)
[2017-05-30] MEDS ORDERED: MAGNESIUM HYDROX 2400MG/30ML ORAL SUSPENSION 30 ML CUP PO ONE ×2 (08:36→08:53)
[2017-05-30] MEDS: MAGNESIUM HYDROX 2400MG/30ML ORAL SUSPENSION 30 ML CUP PO PRN (08:52)
[2017-05-30] MEDS: TAMSULOSIN HCL 0.4 MG CAP.ER.24H (FP) PO SCH (08:52)
[2017-05-30] MEDS ORDERED: FOLIC ACID 1 MG TABLET (FP) PO SCH (10:00)
[2017-05-30] MEDS ORDERED: PT OWN MED DRAWER 7, Y5N ONE ×2 (10:09→10:13)
[2017-05-30] MEDS: SENNOSIDES/DOCUSATE COMBO (SENNA PLUS) TABLET (UD) PO SCH ×2 (10:10→21:22)
[2017-05-30] MEDS: ASPIRIN COATED 81 MG TABLET.EC PO SCH (10:10)
[2017-05-30] MEDS: BENZTROPINE MESYLATE 1 MG TABLET (FP) PO SCH ×2 (10:11→21:21)
[2017-05-30] MEDS: PRENATAL VITAMINS W/ FOLIC ACID TABLET (FP) PO SCH (10:11)
[2017-05-30] MEDS: PERPHENAZINE 8 MG TABLET PO SCH (10:11)
[2017-05-30] MEDS: LABETALOL HCL 100 MG TABLET (FP) PO SCH ×2 (10:11→21:22)
[2017-05-30] MEDS: POTASSIUM CHLORIDE TABS 20 MEQ TABLET.ER (FP) PO SCH (10:16)
[2017-05-30] MEDS: chlordiazePOXIDE 5 MG CAPSULE PO SCH ×2 (16:50→23:00)
--- NOTE | 2017-05-30 19:05 | PN ---
Teaching Attending Note Name of Resident: Himanshu Soto ATTENDING PHYSICIAN STATEMENT I saw and evaluated the patient. I reviewed the resident's note and discussed the case with the resident. I agree with the resident's findings and plan as documented. SUBJECTIVE: No fever or chills. no pain. OBJECTIVE: NAD, Awake comfortable , knows he is in hospital, age, and month/yr CV: RRR, no MRG Lungs: CTAB Ext: 1+ pitting edema on LE improved . angulo bag with clear urine ASSESSMENT AND PLAN: 67 y/o gentleman with h/o HTN, partial colectomy, Bipolar HL, and schizophrenia who presented wit AMS and slurred speech. 1- AMS and slurred speech, due to alcohol withdrawal. back to normal with librium - cont librium detox - folic and thiamine 2- LE edema , probably due to Norvasc, improved after dc med Echo with no evidence of low EF , BNP is not elevated cont labetalol instead of norvasc 3- RADHA: resolved renal US with b/l hydro. cont flomax. angulo removed but pt retained again . angulo placed back with 700 cc of urine drained 4- h/o HTN: as above 5- Schizophrenia and bipolar . cont antipsychotics f/u with psych as outpt dispo: to rehab after detox
[2017-05-30] MEDS: ROSUVASTATIN CA 10 MG TABLET (FP) PO SCH (21:22)
[2017-05-30] MEDS: chlorproMAZINE HCL 100 MG TABLET PO SCH (21:22)
[2017-05-30] MEDS: THIAMINE HCL 100 MG TABLET (FP) PO SCH (21:23)
[2017-05-30] MEDS: guaiFENesin 200 MG/10 ML 10 ML UNIT-DOSE CUPS PO PRN (21:25)
[2017-05-31] MEDS: ZOLPIDEM TARTRATE 5 MG TABLET PO PRN (00:24)
[2017-05-31] MEDS: chlordiazePOXIDE 5 MG CAPSULE PO SCH ×4 (06:26→22:34)
[2017-05-31] MEDS: HEPARIN NA (PORCINE) 5,000 UNITS/ML 1ML VIAL SQ SCH ×3 (06:27→21:38)
[2017-05-31] MEDS: guaiFENesin 200 MG/10 ML 10 ML UNIT-DOSE CUPS PO PRN (06:34)
[2017-05-31] MEDS: ACETAMINOPHEN 325 MG TABLET (FP) PO PRN (07:09)
[2017-05-31 08:13] LABS: BASO % 0.3 % (0-2.0); EOS % 2.5 % (0-4.5); HEMATOCRIT 32.5 % (35.4-49); HEMOGLOBIN 10.7 GM/dL (11.7-16.9); LYMPH % 14.7 % (8-40); MCH 30.1 pg (25.7-33.7); MEAN CELL VOLUME 91.1 fl (80-96); MEAN PLT VOLUME 7.9 fl (7.5-11.1); MONO % 16.9 % (3.8-10.2); NEUT % 65.6 % (42.8-82.8); PLATELET COUNT 168 K/MM3 (134-434); RBC 3.56 M/mm3 (4.00-5.60); RDW 12.7 % (11.9-15.9); WHITE BLOOD COUNT 9.3 K/mm3 (4.0-10.0)
[2017-05-31 08:15] LABS: ALBUMIN 2.7 g/dl (3.4-5.0); ALK PHOS 102 U/L (45-117); ANION GAP 10 (8-16); BILIRUBIN,TOTAL 0.5 mg/dL (0.2-1.0); BLOOD UREA NITROGEN 10 mg/dL (7-18); CALCIUM 7.5 mg/dL (8.5-10.1); CHLORIDE 103 mmol/L (98-107); CO2 25 mmol/L (21-32); GLUCOSE,RANDOM 96 mg/dL (74-106); POTASSIUM 3.6 mmol/L (3.5-5.1); SGOT/AST 26 U/L (15-37); SGPT/ALT 27 U/L (12-78); SODIUM 138 mmol/L (136-145); TOT PROT 6.2 g/dl (6.4-8.2)
[2017-05-31] MEDS ORDERED: PT OWN MED DRAWER 7, Y5N ONE ×2 (09:17→21:28)
[2017-05-31] MEDS: LABETALOL HCL 100 MG TABLET (FP) PO SCH ×2 (09:28→21:37)
[2017-05-31] MEDS: SENNOSIDES/DOCUSATE COMBO (SENNA PLUS) TABLET (UD) PO SCH ×2 (09:28→21:38)
[2017-05-31] MEDS: TAMSULOSIN HCL 0.4 MG CAP.ER.24H (FP) PO SCH (09:28)
[2017-05-31] MEDS: BENZTROPINE MESYLATE 1 MG TABLET (FP) PO SCH ×2 (09:28→21:38)
[2017-05-31] MEDS: ASPIRIN COATED 81 MG TABLET.EC PO SCH (09:28)
[2017-05-31] MEDS: guaiFENesin 600 MG TABLET.ER (FP) PO SCH ×2 (09:28→21:37)
[2017-05-31] MEDS: PERPHENAZINE 4 MG TABLET PO SCH (09:28)
[2017-05-31] MEDS: PRENATAL VITAMINS W/ FOLIC ACID TABLET (FP) PO SCH (09:29)
--- NOTE | 2017-05-31 13:52 | PN ---
Progress Note (short form) - Note Progress Note: patient failed trial of void. adding proscar CT findings noted. may need TURP if cannot void again
--- NOTE | 2017-05-31 13:57 | PN ---
[facility] Progress Note (SOAP) Subjective: patient comfortable, no complaints, completed detox prn libirum d/c Objective: 05/31/17 13:55 Vital Signs - 24 hr 05/30/17 05/30/17 05/30/17 14:00 16:30 21:00 Temperature 98.1 F 98.3 F Pulse Rate 89 95 H Respiratory 18 20 20 Rate Blood Pressure 123/58 126/69 O2 Sat by Pulse 95 Oximetry (%) 05/31/17 05/31/17 05/31/17 00:00 06:00 09:00 Temperature 98.2 F 99 F Pulse Rate 102 H 89 Respiratory 20 20 20 Rate Blood Pressure 131/74 136/74 O2 Sat by Pulse 92 L Oximetry (%) 05/31/17 05/31/17 10:00 13:38 Temperature 98.3 F 98.0 F Pulse Rate 92 H 84 Respiratory 20 20 Rate Blood Pressure 113/62 136/59 O2 Sat by Pulse Oximetry (%) Laboratory Tests 05/26/17 05/26/17 05/26/17 13:00 13:00 13:00 WBC 9.7 RBC 4.09 Hgb 12.4 Hct 36.4 MCV 89.1 MCH 30.3 MCHC 34.0 RDW 12.9 Plt Count 199 MPV 8.1 Neutrophils % 69.6 Lymphocytes % 16.3 Monocytes % 11.9 H Eosinophils % 1.1 Basophils % 1.1 PT with INR INR Sodium Potassium Chloride Carbon Dioxide Anion Gap BUN Creatinine Creat Clearance w eGFR Random Glucose Hemoglobin A1c % Calcium Magnesium Total Bilirubin AST ALT Alkaline Phosphatase Creatine Kinase Cancelled Creatine Kinase Index CK-MB (CK-2) Troponin I Cancelled B-Natriuretic Peptide Total Protein Albumin Triglycerides Cholesterol Total LDL Cholesterol HDL Cholesterol Vitamin B12 TSH Urine Color Urine Appearance Urine pH Ur Specific [place] Urine Protein Urine Glucose (UA) Urine Ketones Urine Blood Urine Nitrite Urine Bilirubin Urine Urobilinogen Ur Leukocyte Esterase Urine WBC (Auto) Urine RBC (Auto) Urine Bacteria Hyaline Casts Urine Mucus Ur Random Sodium Ur Random Potassium Ur Random Chloride Salicylates Cancelled Opiates Screen Methadone Screen Acetaminophen Barbiturate Screen Phencyclidine Screen Ur Amphetamines Screen MDMA (Ecstasy) Screen Benzodiazepines Screen Cocaine Screen U Marijuana (THC) Screen Alcohol, Quantitative 05/26/17 05/26/17 05/26/17 13:03 13:03 13:03 WBC RBC Hgb Hct MCV MCH MCHC RDW Plt Count MPV Neutrophils % Lymphocytes % Monocytes % Eosinophils % Basophils % PT with INR 10.90 INR 0.96 Sodium 139 Potassium 3.9 Chloride 101 Carbon Dioxide 24 Anion Gap 14 BUN 30 H Creatinine 1.5 H Creat Clearance w eGFR 46.40 Random Glucose 98 Hemoglobin A1c % Calcium 8.8 Magnesium Total Bilirubin 0.6 AST 33 ALT 35 Alkaline Phosphatase 113 Creatine Kinase 219 Creatine Kinase Index 0.8 CK-MB (CK-2) 1.885 Troponin I < 0.02 B-Natriuretic Peptide Total Protein 7.5 Albumin 3.7 Triglycerides Cholesterol Total LDL Cholesterol HDL Cholesterol Vitamin B12 TSH Urine Color Urine Appearance Urine pH Ur Specific [place] Urine Protein Urine Glucose (UA) Urine Ketones Urine Blood Urine Nitrite Urine Bilirubin Urine Urobilinogen Ur Leukocyte Esterase Urine WBC (Auto) Urine RBC (Auto) Urine Bacteria Hyaline Casts Urine Mucus Ur Random Sodium Ur Random Potassium Ur Random Chloride Salicylates Opiates Screen Methadone Screen Acetaminophen Barbiturate Screen Phencyclidine Screen Ur Amphetamines Screen MDMA (Ecstasy) Screen Benzodiazepines Screen Cocaine Screen U Marijuana (THC) Screen Alcohol, Quantitative < 5.0 05/26/17 05/26/17 05/26/17 13:03 22:48 22:48 WBC RBC Hgb Hct MCV MCH MCHC RDW Plt Count MPV Neutrophils % Lymphocytes % Monocytes % Eosinophils % Basophils % PT with INR INR Sodium Potassium Chloride Carbon Dioxide Anion Gap BUN Creatinine Creat Clearance w eGFR Random Glucose Hemoglobin A1c % Calcium Magnesium Total Bilirubin AST ALT Alkaline Phosphatase Creatine Kinase Creatine Kinase Index CK-MB (CK-2) Troponin I B-Natriuretic Peptide Total Protein Albumin Triglycerides Cholesterol Total LDL Cholesterol HDL Cholesterol Vitamin B12 TSH Urine Color Ltyellow Urine Appearance Clear Urine pH 5.0 Ur Specific [place] 1.011 Urine Protein 1+ H Urine Glucose (UA) Negative Urine Ketones Negative Urine Blood Negative Urine Nitrite Negative Urine Bilirubin Negative Urine Urobilinogen Negative Ur Leukocyte Esterase Negative Urine WBC (Auto) 1 Urine RBC (Auto) 2 Urine Bacteria Rare Hyaline Casts Urine Mucus Rare Ur Random Sodium Ur Random Potassium Ur Random Chloride Salicylates < 4.0 Opiates Screen Negative Methadone Screen Negative Acetaminophen < 10 L Barbiturate Screen Negative Phencyclidine Screen Negative Ur Amphetamines Screen Negative MDMA (Ecstasy) Screen Negative Benzodiazepines Screen Positive Cocaine Screen Negative U Marijuana (THC) Screen Negative Alcohol, Quantitative 01/05/26/17 05/27/17 22:48 23:12 06:30 WBC 8.4 RBC 3.92 L Hgb 11.8 Hct 35.1 L MCV 89.6 MCH 30.1 MCHC 33.6 RDW 12.8 Plt Count 172 MPV 8.2 Neutrophils % 61.2 Lymphocytes % 23.5 D Monocytes % 13.1 H Eosinophils % 1.7 Basophils % 0.5 PT with INR INR Sodium Potassium Chloride Carbon Dioxide Anion Gap BUN Creatinine Creat Clearance w eGFR Random Glucose Hemoglobin A1c % Calcium Magnesium Total Bilirubin AST ALT Alkaline Phosphatase Creatine Kinase Creatine Kinase Index CK-MB (CK-2) Troponin I B-Natriuretic Peptide 105.06 Total Protein Albumin Triglycerides Cholesterol Total LDL Cholesterol HDL Cholesterol Vitamin B12 TSH Urine Color Urine Appearance Urine pH Ur Specific [place] Urine Protein Urine Glucose (UA) Urine Ketones Urine Blood Urine Nitrite Urine Bilirubin Urine Urobilinogen Ur Leukocyte Esterase Urine WBC (Auto) Urine RBC (Auto) Urine Bacteria Hyaline Casts Urine Mucus Ur Random Sodium 22 Ur Random Potassium 26.8 Ur Random Chloride 19 Salicylates Opiates Screen Methadone Screen Acetaminophen Barbiturate Screen Phencyclidine Screen Ur Amphetamines Screen MDMA (Ecstasy) Screen Benzodiazepines Screen Cocaine Screen U Marijuana (THC) Screen Alcohol, Quantitative 05/27/17 05/27/17 05/27/17 06:30 06:30 06:30 WBC RBC Hgb Hct MCV MCH MCHC RDW Plt Count MPV Neutrophils % Lymphocytes % Monocytes % Eosinophils % Basophils % PT with INR INR Sodium 140 Potassium 3.3 L Chloride 106 Carbon Dioxide 24 Anion Gap 10 BUN 29 H Creatinine 1.1 D Creat Clearance w eGFR Random Glucose 97 Hemoglobin A1c % 5.6 Calcium 7.7 L Magnesium 1.7 L Total Bilirubin AST ALT Alkaline Phosphatase Creatine Kinase Creatine Kinase Index CK-MB (CK-2) Troponin I B-Natriuretic Peptide Total Protein Albumin 3.3 L Triglycerides 108 Cholesterol 158 Total LDL Cholesterol 60 HDL Cholesterol 89 H Vitamin B12 362 TSH 7.64 H Urine Color Urine Appearance Urine pH Ur Specific [place] Urine Protein Urine Glucose (UA) Urine Ketones Urine Blood Urine Nitrite Urine Bilirubin Urine Urobilinogen Ur Leukocyte Esterase Urine WBC (Auto) Urine RBC (Auto) Urine Bacteria Hyaline Casts Urine Mucus Ur Random Sodium Ur Random Potassium Ur Random Chloride Salicylates Opiates Screen Methadone Screen Acetaminophen Barbiturate Screen Phencyclidine Screen Ur Amphetamines Screen MDMA (Ecstasy) Screen Benzodiazepines Screen Cocaine Screen U Marijuana (THC) Screen Alcohol, Quantitative 05/27/17 05/28/17 05/28/17 18:00 06:00 06:00 WBC 10.7 H RBC 3.67 L Hgb 11.2 L Hct 32.9 L MCV 89.6 MCH 30.4 MCHC 34.0 RDW 12.6 Plt Count 154 MPV 8.1 Neutrophils % 79.0 D Lymphocytes % 8.8 D Monocytes % 10.8 H Eosinophils % 1.1 Basophils % 0.3 PT with INR INR Sodium 138 Potassium 3.2 L Chloride 105 Carbon Dioxide 25 Anion Gap 8 BUN 15 D Creatinine 1.0 Creat Clearance w eGFR > 60 Random Glucose 109 H Hemoglobin A1c % Calcium 8.0 L Magnesium Total Bilirubin 0.8 D AST 29 ALT 25 D Alkaline Phosphatase 107 Creatine Kinase Creatine Kinase Index CK-MB (CK-2) Troponin I B-Natriuretic Peptide Total Protein 6.4 Albumin 3.2 L Triglycerides Cholesterol Total LDL Cholesterol HDL Cholesterol Vitamin B12 TSH Urine Color Ltyellow Urine Appearance Clear Urine pH 6.0 Ur Specific [place] 1.010 Urine Protein 1+ H Urine Glucose (UA) Negative Urine Ketones Negative Urine Blood 1+ H Urine Nitrite Negative Urine Bilirubin Negative Urine Urobilinogen Negative Ur Leukocyte Esterase Negative Urine WBC (Auto) 1 Urine RBC (Auto) 12 Urine Bacteria Hyaline Casts 1 Urine Mucus Rare Ur Random Sodium Ur Random Potassium Ur Random Chloride Salicylates Opiates Screen Methadone Screen Acetaminophen Barbiturate Screen Phencyclidine Screen Ur Amphetamines Screen MDMA (Ecstasy) Screen Benzodiazepines Screen Cocaine Screen U Marijuana (THC) Screen Alcohol, Quantitative 05/29/17 05/29/17 05/30/17 06:00 06:00 06:30 WBC 9.6 11.6 H RBC 3.58 L 3.87 L Hgb 10.8 L 11.5 L Hct 32.1 L 35.2 L MCV 89.8 90.9 MCH 30.1 29.8 MCHC 33.5 32.8 RDW 12.5 12.7 Plt Count 142 167 MPV 8.1 8.1 Neutrophils % Lymphocytes % Monocytes % Eosinophils % Basophils % PT with INR INR Sodium 139 Potassium 3.5 Chloride 106 Carbon Dioxide 22 Anion Gap 11 BUN 13 Creatinine 0.9 Creat Clearance w eGFR Random Glucose 88 Hemoglobin A1c % Calcium 7.5 L Magnesium 2.1 D Total Bilirubin AST ALT Alkaline Phosphatase Creatine Kinase Creatine Kinase Index CK-MB (CK-2) Troponin I B-Natriuretic Peptide Total Protein Albumin Triglycerides Cholesterol Total LDL Cholesterol HDL Cholesterol Vitamin B12 TSH Urine Color Urine Appearance Urine pH Ur Specific [place] Urine Protein Urine Glucose (UA) Urine Ketones Urine Blood Urine Nitrite Urine Bilirubin Urine Urobilinogen Ur Leukocyte Esterase Urine WBC (Auto) Urine RBC (Auto) Urine Bacteria Hyaline Casts Urine Mucus Ur Random Sodium Ur Random Potassium Ur Random Chloride Salicylates Opiates Screen Methadone Screen Acetaminophen Barbiturate Screen Phencyclidine Screen Ur Amphetamines Screen MDMA (Ecstasy) Screen Benzodiazepines Screen Cocaine Screen U Marijuana (THC) Screen Alcohol, Quantitative 05/31/17 05/31/17 06:30 06:30 WBC 9.3 RBC 3.56 L Hgb 10.7 L Hct 32.5 L MCV 91.1 MCH 30.1 MCHC 33.0 RDW 12.7 Plt Count 168 MPV 7.9 Neutrophils % 65.6 Lymphocytes % 14.7 D Monocytes % 16.9 H Eosinophils % 2.5 D Basophils % 0.3 PT with INR INR Sodium 138 Potassium 3.6 Chloride 103 Carbon Dioxide 25 Anion Gap 10 BUN 10 D Creatinine 1.0 Creat Clearance w eGFR > 60 Random Glucose 96 Hemoglobin A1c % Calcium 7.5 L Magnesium Total Bilirubin 0.5 D AST 26 ALT 27 Alkaline Phosphatase 102 Creatine Kinase Creatine Kinase Index CK-MB (CK-2) Troponin I B-Natriuretic Peptide Total Protein 6.2 L Albumin 2.7 L Triglycerides Cholesterol Total LDL Cholesterol HDL Cholesterol Vitamin B12 TSH Urine Color Urine Appearance Urine pH Ur Specific [place] Urine Protein Urine Glucose (UA) Urine Ketones Urine Blood Urine Nitrite Urine Bilirubin Urine Urobilinogen Ur Leukocyte Esterase Urine WBC (Auto) Urine RBC (Auto) Urine Bacteria Hyaline Casts Urine Mucus Ur Random Sodium Ur Random Potassium Ur Random Chloride Salicylates Opiates Screen Methadone Screen Acetaminophen Barbiturate Screen Phencyclidine Screen Ur Amphetamines Screen MDMA (Ecstasy) Screen Benzodiazepines Screen Cocaine Screen U Marijuana (THC) Screen Alcohol, Quantitative elevated tsh Assessment: 05/31/17 13:56 alcohol withdrawal - complete detox, tsh elevated, hypothyroid does not appear addressed, if medically stable and not psychotic may be consdered for transfer to [facility] rehab if bed available and insuranc covers care.
--- NOTE | 2017-05-31 14:25 | PN ---
Physical Exam: SUBJECTIVE: Patient seen and examined at bedside. trying to pul his cath multiple times , complain of penus pain and irritation , urinary cath in place with hematurea, still coughing with some congestion in his chest. OBJECTIVE: Vital Signs Period Temp Pulse Resp BP Sys/Jones Pulse Ox Last 24 Hr 98.0 F-99 F 84-102 20-20 113-136/59-74 92-95 GENERAL: Awake, alert, and fully oriented, in no acute distress.obese. HEAD: Normal with no signs of trauma. EYES: sclera anicteric, conjunctiva clear. LUNGS: Breath sounds equal, clear to auscultation bilaterally. No wheezes, and no crackles. No accessory muscle use. HEART: Regular rate and rhythm, normal S1 and S2 without murmur, rub or gallop. ABDOMEN: Soft, obese, nontender, not distended, normoactive bowel sounds, no guarding, no rebound. angulo in place with hematuria UPPER EXTREMITIES: warm, well-perfused. No clubbing. No peripheral edema. MSK: 5/5 UE and LE strength. LOWER EXTREMITIES: warm, well-perfused. No calf tenderness. no edema. NEUROLOGICAL: Cranial nerves II-XII intact. Mildly slurred speech. Gait not observed. PSYCHIATRIC: Cooperative. Good eye contact. Appropriate mood and affect. SKIN: Warm, dry, no ecchymosis noted on UE or LE Laboratory Results - last 24 hr 05/31/17 05/31/17 06:30 06:30 WBC 9.3 RBC 3.56 L Hgb 10.7 L Hct 32.5 L MCV 91.1 MCH 30.1 MCHC 33.0 RDW 12.7 Plt Count 168 MPV 7.9 Neutrophils % 65.6 Lymphocytes % 14.7 D Monocytes % 16.9 H Eosinophils % 2.5 D Basophils % 0.3 Sodium 138 Potassium 3.6 Chloride 103 Carbon Dioxide 25 Anion Gap 10 BUN 10 D Creatinine 1.0 Creat Clearance w eGFR > 60 Random Glucose 96 Calcium 7.5 L Total Bilirubin 0.5 D AST 26 ALT 27 Alkaline Phosphatase 102 Total Protein 6.2 L Albumin 2.7 L Active Medications Generic Name Dose Route Start Last Admin Trade Name Freq PRN Reason Stop Dose Admin Acetaminophen 650 mg 05/27/17 18:28 05/31/17 07:09 Tylenol - PO 650 mg Q6H PRN Administration PAIN LEVEL 4 - 6 Aspirin 81 mg 05/27/17 10:00 05/31/17 09:28 Ecotrin - PO 81 mg DAILY [facility] Administration Benzocaine/Menthol 1 each 05/28/17 20:41 05/29/17 22:01 Cepacol Lozenge - MM 1 each PRN PRN Administration SORE THROAT Benztropine Mesylate 1 mg 05/26/17 22:00 05/31/17 09:28 Cogentin - PO 1 mg BID [facility] Administration Chlordiazepoxide HCl 10 mg 05/31/17 17:00 Librium - PO 06/01/17 11:01 [id number] LETICIA Chlorpromazine HCl 100 mg 05/26/17 22:00 05/30/17 21:22 Thorazine - PO 100 mg HS [facility] Administration Finasteride 5 mg 05/31/17 14:00 Proscar - PO DAILY [facility] Guaifenesin 600 mg 05/31/17 10:00 05/31/17 09:28 Mucinex - PO 600 mg BID [facility] Administration Heparin Sodium (Porcine) 5,000 unit 05/27/17 06:00 05/31/17 06:27 Heparin - SQ 5,000 unit TID [facility] Administration Labetalol HCl 100 mg 05/28/17 10:00 05/31/17 09:28 Normodyne - PO 100 mg BID [facility] Administration Magnesium Hydroxide 30 ml 05/28/17 17:15 05/28/17 23:03 Milk Of Magnesia - PO 30 ml DAILY PRN Administration CONSTIPATION Perphenazine 8 mg 05/31/17 10:00 05/31/17 09:28 Trilafon PO 8 mg DAILY [facility] Administration Multivit/Folic Acid/Iron 1 tab 05/29/17 10:00 05/31/17 09:29 Vitamins (Sjr) - PO 1 tab DAILY [facility] Administration Rosuvastatin Calcium 10 mg 05/26/17 22:00 05/30/17 21:22 Crestor - PO 10 mg HS [facility] Administration Senna/Docusate Sodium 1 tablet 05/28/17 11:30 05/31/17 09:28 Pericolace - PO 1 tablet BID [facility] Administration Tamsulosin HCl 0.8 mg 05/28/17 09:00 05/31/17 09:28 Flomax - PO 0.8 mg DAILY@0830 [facility] Administration Thiamine HCl 100 mg 05/28/17 22:00 05/30/17 21:23 Vitamin B1 - PO 100 mg HS [facility] Administration Zolpidem Tartrate 10 mg 05/30/17 22:00 05/31/17 00:24 Ambien - PO 10 mg HS PRN Administration INSOMNIA CBC, BMP 05/31/17 06:30 05/31/17 06:30 Microbiology 05/30/17 08:05 Influenza Types A,B Antigen (SANDI) - Final Nasopharyngeal Swab - Final negative ASSESSMENT/PLAN: 67 y/o M w/PMH of paranoid schizophrenia, insomnia, depression, anxiety, htn, hld presents to the ER for slurred speech as per pt's sister. Being worked up for possible CVA/TIA #acute AMS likely 2/2 alcohol withdrawal, improved * no withdrawal symptoms currently * continue libirium protocol * continue thiamin and folic acid * pt education about alcohol abstinence #Hydronephrosis noted on CT scan 2/2 prostate enlargement * Cont Flomax 0.8 mg po daily , added finasteride 5 mg po daily , needed turp per urologist if can not pass urine * failed DC Angulo today and voiding trial 1400 cc bladder retention * maintatine angulo # Slurred speech secondary to alcohol abuse , resolved * All cardiac and neurologic workup has been negative * Cont. aspirin 81 mg po qd and rosuvastatin 10 mg po qhs * PT # Couph , dry non productive , likley 2/2 viral URI * started on Rubbitussin 10 mg Q6hr po , added Mucinex * starte abx if no improve after 10 days # Anemia likely 2/2 blood loss hematuria ,monitor * Monitor H/H # constipation, improving * on Senna BID , Milk of mag daily * # LE pitting edema secondary to Meds SE Norvasc , improved * Switch norvasc to labetolol 100 BID # RADHA , 2/2 volum depletion vs med SE , improved #HTN, controlled * Switch Norvasc 10 mg po qd to Labetolol 100 mg po BID due to edema # Paranoid Schizophrenia, stable today, * c/w perphenazine 8 mg po qhs, chlorpromazine 100 mg po qhs, benztropine 1 mg po bid (likely for EPS) * F/U as out patient #Insomnia * DC ambien , restarted by [facility]. * sleep hygiene # Depression * continue on amitriptyline 100 mg po qhs, # HLD -c/w rosuvastatin 10 mg po qhs # DVT ppx * Heparin 5000 units sq q8h # FEN * No fluids * monitor electrolytes, replete as needed * Regular diet * # Dispo: * Plan for discharge tomorrow after libirium protocol completed , to rehab facility. Visit type - Emergency Visit Emergency Visit: Yes ED Registration Date: 05/28/17 Care time: The patient presented to the Emergency Department on the above date and was hospitalized for further evaluation of their emergent condition. - New Patient This patient is new to me today: No - Critical Care Critical Care patient: No - Discharge Referral Referred to [facility] No
[2017-05-31] MEDS: FINASTERIDE 5 MG TABLET (FP) PO SCH (15:11)
--- NOTE | 2017-05-31 19:28 | PN ---
Teaching Attending Note Name of Resident: Himanshu Soto ATTENDING PHYSICIAN STATEMENT I saw and evaluated the patient. I reviewed the resident's note and discussed the case with the resident. I agree with the resident's findings and plan as documented. SUBJECTIVE: No fever or chills. has no pain OBJECTIVE: NAD, Awake comfortable , AAOx3 CV: RRR, no MRG Lungs: CTAB Ext: 1+ pitting edema on LE improved . angulo bag with clear urine ASSESSMENT AND PLAN: 67 y/o gentleman with h/o HTN, partial colectomy, Bipolar HL, and schizophrenia who presented wit AMS and slurred speech. 1- AMS and slurred speech, due to alcohol withdrawal. back to normal with librium - cont librium detox - folic and thiamine 2- LE edema, probably due to Norvasc, improved after dc med cont labetalol instead of norvasc 3- RADHA: resolved renal US with b/l hydro. cont flomax. finasteride added will cont angulo to leg bag after dc 4- h/o HTN: as above 5- Schizophrenia and bipolar . cont antipsychotics f/u with psych as outpt dispo: to rehab after detox
[2017-05-31] MEDS: THIAMINE HCL 100 MG TABLET (FP) PO SCH (21:38)
[2017-05-31] MEDS: ROSUVASTATIN CA 10 MG TABLET (FP) PO SCH (21:39)
[2017-05-31] MEDS: chlorproMAZINE HCL 100 MG TABLET PO SCH (21:40)
[2017-05-31] MEDS ORDERED: guaiFENesin 200 MG/10 ML 10 ML UNIT-DOSE CUPS PO ONE (21:45)
[2017-06-01] MEDS: ZOLPIDEM TARTRATE 5 MG TABLET PO PRN (02:42)
[2017-06-01] MEDS: chlordiazePOXIDE 5 MG CAPSULE PO SCH ×2 (04:15→11:14)
[2017-06-01] MEDS ORDERED: PT OWN MED DRAWER 7, Y5N ONE ×3 (05:38→10:04)
[2017-06-01] MEDS: HEPARIN NA (PORCINE) 5,000 UNITS/ML 1ML VIAL SQ SCH ×3 (05:58→21:25)
[2017-06-01 06:47] LABS: MCH 30.3 pg (25.7-33.7); MCHC 33.5 g/dl (32.0-35.9); MEAN CELL VOLUME 90.7 fl (80-96); MEAN PLT VOLUME 7.5 fl (7.5-11.1); PLATELET COUNT 195 K/MM3 (134-434); RBC 3.64 M/mm3 (4.00-5.60); RDW 12.8 % (11.9-15.9); WHITE BLOOD COUNT 9.3 K/mm3 (4.0-10.0)
[2017-06-01 07:14] LABS: ALBUMIN 2.8 g/dl (3.4-5.0); ANION GAP 7 (8-16); BLOOD UREA NITROGEN 9 mg/dL (7-18); CHLORIDE 105 mmol/L (98-107); CO2 26 mmol/L (21-32); GLUCOSE,RANDOM 92 mg/dL (74-106); POTASSIUM 3.7 mmol/L (3.5-5.1); SODIUM 138 mmol/L (136-145)
[2017-06-01 07:19] LABS: ALK PHOS 108 U/L (45-117); BILIRUBIN,TOTAL 0.5 mg/dL (0.2-1.0); CREATININE 0.9 mg/dL (0.7-1.3); SGOT/AST 41 U/L (15-37); SGPT/ALT 38 U/L (12-78); TOT PROT 6.3 g/dl (6.4-8.2)
[2017-06-01] MEDS ORDERED: guaiFENesin 600 MG TABLET.ER (FP) PO SCH (08:00)
--- NOTE | 2017-06-01 08:03 | PN ---
Teaching Attending Note Name of Resident: Himanshu Soto ATTENDING PHYSICIAN STATEMENT I saw and evaluated the patient. I reviewed the resident's note and discussed the case with the resident. I agree with the resident's findings and plan as documented. SUBJECTIVE: Patient is comfortable, no withdrawel at this time, last dose of Librium today. OBJECTIVE: Vital Signs Temperature 97.9 F 06/01/17 06:47 Pulse Rate 96 H 06/01/17 06:47 Respiratory Rate 20 06/01/17 06:47 Blood Pressure 121/67 06/01/17 06:47 O2 Sat by Pulse Oximetry (%) 92 L 05/31/17 21:00 CBCD WBC 9.3 K/mm3 (4.0-10.0) 06/01/17 05:35 RBC 3.64 M/mm3 (4.00-5.60) L 06/01/17 05:35 Hgb 11.0 GM/dL (11.7-16.9) L 06/01/17 05:35 Hct 33.0 % (35.4-49) L 06/01/17 05:35 MCV 90.7 fl (80-96) 06/01/17 05:35 MCHC 33.5 g/dl (32.0-35.9) 06/01/17 05:35 RDW 12.8 % (11.9-15.9) 06/01/17 05:35 Plt Count 195 K/MM3 (134-434) 06/01/17 05:35 MPV 7.5 fl (7.5-11.1) 06/01/17 05:35 CMP Sodium 138 mmol/L (136-145) 05/31/17 06:30 Potassium 3.6 mmol/L (3.5-5.1) 05/31/17 06:30 Chloride 103 mmol/L (98-107) 05/31/17 06:30 Carbon Dioxide 25 mmol/L (21-32) 05/31/17 06:30 Anion Gap 10 (8-16) 05/31/17 06:30 BUN 10 mg/dL (7-18) D 05/31/17 06:30 Creatinine 1.0 mg/dL (0.7-1.3) 05/31/17 06:30 Creat Clearance w eGFR > 60 (>60) 05/31/17 06:30 Random Glucose 96 mg/dL (74-106) 05/31/17 06:30 Calcium 7.5 mg/dL (8.5-10.1) L 05/31/17 06:30 Total Bilirubin 0.5 mg/dL (0.2-1.0) D 05/31/17 06:30 AST 26 U/L (15-37) 05/31/17 06:30 ALT 27 U/L (12-78) 05/31/17 06:30 Alkaline Phosphatase 102 U/L (45-117) 05/31/17 06:30 Total Protein 6.2 g/dl (6.4-8.2) L 05/31/17 06:30 Albumin 2.7 g/dl (3.4-5.0) L 05/31/17 06:30 CARDIAC ENZYMES Creatine Kinase 219 IU/L (39-308) 05/26/17 13:03 Troponin I < 0.02 ng/ml (0.00-0.05) 05/26/17 13:03 Current Medications Generic Name Dose Route Start Last Admin Trade Name Freq PRN Reason Stop Dose Admin Acetaminophen 650 mg 05/27/17 18:28 05/31/17 07:09 Tylenol - PO 650 mg Q6H PRN Administration PAIN LEVEL 4 - 6 Aspirin 81 mg 05/27/17 10:00 05/31/17 09:28 Ecotrin - PO 81 mg DAILY [facility] Administration Benzocaine/Menthol 1 each 05/28/17 20:41 05/29/17 22:01 Cepacol Lozenge - MM 1 each PRN PRN Administration SORE THROAT Benztropine Mesylate 1 mg 05/26/17 22:00 05/31/17 21:38 Cogentin - PO 1 mg BID [facility] Administration Chlordiazepoxide HCl 10 mg 05/31/17 17:00 06/01/17 04:15 Librium - PO 06/01/17 11:01 10 mg [id number] [facility] Administration Chlorpromazine HCl 100 mg 05/26/17 22:00 05/31/17 21:40 Thorazine - PO 100 mg HS [facility] Administration Finasteride 5 mg 05/31/17 14:00 05/31/17 15:11 Proscar - PO 5 mg DAILY [facility] Administration Guaifenesin 600 mg 06/01/17 08:00 Mucinex - PO Q6H [facility]IC[facility] Heparin Sodium (Porcine) 5,000 unit 05/27/17 06:00 06/01/17 05:58 Heparin - SQ 5,000 unit TID [facility] Administration Labetalol HCl 100 mg 05/28/17 10:00 05/31/17 21:37 Normodyne - PO 100 mg BID [facility] Administration Magnesium Hydroxide 30 ml 05/28/17 17:15 05/28/17 23:03 Milk Of Magnesia - PO 30 ml DAILY PRN Administration CONSTIPATION Perphenazine 8 mg 05/31/17 10:00 05/31/17 09:28 Trilafon PO 8 mg DAILY [facility] Administration Multivit/Folic Acid/Iron 1 tab 05/29/17 10:00 05/31/17 09:29 Vitamins (Sjr) - PO 1 tab DAILY [facility] Administration Rosuvastatin Calcium 10 mg 05/26/17 22:00 05/31/17 21:39 Crestor - PO 10 mg HS [facility] Administration Senna/Docusate Sodium 1 tablet 05/28/17 11:30 05/31/17 21:38 Pericolace - PO 1 tablet BID [facility] Administration Tamsulosin HCl 0.8 mg 05/28/17 09:00 05/31/17 09:28 Flomax - PO 0.8 mg DAILY@0830 [facility] Administration Thiamine HCl 100 mg 05/28/17 22:00 05/31/17 21:38 Vitamin B1 - PO 100 mg HS [facility] Administration Zolpidem Tartrate 10 mg 05/30/17 22:00 06/01/17 02:42 Ambien - PO 10 mg HS PRN Administration INSOMNIA Home Medications Medication Instructions Recorded Amitriptyline HCl [Elavil -] 100 mg PO HS 05/26/17 Amlodipine Besylate [Norvasc -] 10 mg PO DAILY 05/26/17 Benztropine Mesylate [Cogentin -] 1 mg PO BID 05/26/17 Chlorpromazine [Thorazine -] 100 mg PO HS 05/26/17 Clonazepam 1 mg PO HS 05/26/17 Perphenazine 8 mg PO DAILY 05/26/17 Rosuvastatin Calcium [Crestor] 10 mg PO DAILY 05/26/17 Triazolam 0.25 mg PO HS 05/26/17 PE:NAD, Awake comfortable , AAOx3 CV: RRR Lungs: CTAB Ext: no edema, pulses are positive, positive for leg angulo ASSESSMENT AND PLAN: Patient is a 67 y/o gentleman with h/o HTN, partial colectomy, Bipolar HL, and schizophrenia who presented with AMS and slurred speech. # s/p AMS and slurred speech, due to alcohol withdrawal. back to his normal state, last dose of Librium today continue folic acid and thiamine # LE edema, probably due to Norvasc, improved after dc med, on labetalol now instead of norvasc continue # RADHA: resolved renal US with b/l hydro. On Fomax 0.8mcg, Finasteride added . Discontiued agnulo and voiding trial , is unable to urinate, patient is going for a TURP procedure on Tuesday By urologist. # Hx of HTN: continue meds. # Hx of Schizophrenia and bipolar cont antipsychotics .F/u with psych as an outpt DVT Px: Heparin sq.
[2017-06-01] MEDS: TAMSULOSIN HCL 0.4 MG CAP.ER.24H (FP) PO SCH (08:39)
[2017-06-01] MEDS: ASPIRIN COATED 81 MG TABLET.EC PO SCH (09:03)
[2017-06-01] MEDS: guaiFENesin 600 MG TABLET.ER (FP) PO SCH ×2 (09:03→21:24)
[2017-06-01] MEDS: ACETAMINOPHEN 325 MG TABLET (FP) PO PRN (09:03)
[2017-06-01] MEDS: SENNOSIDES/DOCUSATE COMBO (SENNA PLUS) TABLET (UD) PO SCH ×2 (09:03→21:24)
[2017-06-01] MEDS: FINASTERIDE 5 MG TABLET (FP) PO SCH (09:03)
[2017-06-01] MEDS: PERPHENAZINE 4 MG TABLET PO SCH (09:04)
[2017-06-01] MEDS: BENZTROPINE MESYLATE 1 MG TABLET (FP) PO SCH ×2 (09:04→21:24)
[2017-06-01] MEDS: LABETALOL HCL 100 MG TABLET (FP) PO SCH ×2 (09:04→21:24)
[2017-06-01] MEDS: PRENATAL VITAMINS W/ FOLIC ACID TABLET (FP) PO SCH (09:04)
[2017-06-01] MEDS: AZITHROMYCIN 250 MG TABLET PO SCH (11:21)
--- NOTE | 2017-06-01 14:39 | DS ---
Physical Exam: SUBJECTIVE: Patient seen and examined OBJECTIVE: Vital Signs Period Temp Pulse Resp BP Sys/Jones Pulse Ox Last 24 Hr 97.5 F-98.8 F 87-108 18-20 113-127/58-92 92-94 PHYSICAL EXAM GENERAL: The patient is awake, alert, and fully oriented, in no acute distress. HEAD: Normal with no signs of trauma. EYES: PERRL, extraocular movements intact, sclera anicteric, conjunctiva clear. ENT: Ears normal, nares patent, oropharynx clear without exudates, moist mucous membranes. NECK: Trachea midline, full range of motion, supple. LUNGS: Breath sounds equal, clear to auscultation bilaterally, no wheezes, no crackles, no accessory muscle use. HEART: Regular rate and rhythm, S1, S2 without murmur, rub or gallop. ABDOMEN: Soft, nontender, nondistended, normoactive bowel sounds, no guarding, no rebound, no hepatosplenomegaly, no masses. EXTREMITIES: 2+ pulses, warm, well-perfused, no edema. NEUROLOGICAL: Cranial nerves II through XII grossly intact. Normal speech, gait not observed. PSYCH: Normal mood, normal affect. SKIN: Warm, dry, normal turgor, no rashes or lesions noted. LABS Laboratory Results - last 24 hr 06/01/17 06/01/17 05:35 05:35 WBC 9.3 RBC 3.64 L Hgb 11.0 L Hct 33.0 L MCV 90.7 MCH 30.3 MCHC 33.5 RDW 12.8 Plt Count 195 MPV 7.5 Sodium 138 Potassium 3.7 Chloride 105 Carbon Dioxide 26 Anion Gap 7 L BUN 9 Creatinine 0.9 Creat Clearance w eGFR > 60 Random Glucose 92 Calcium 8.0 L Total Bilirubin 0.5 AST 41 H D ALT 38 D Alkaline Phosphatase 108 Total Protein 6.3 L Albumin 2.8 L Current Medications Acetaminophen (Tylenol -) 650 mg PO Q6H PRN PRN Reason: PAIN LEVEL 4 - 6 Last Admin: 06/01/17 09:03 Dose: 650 mg Aspirin (Ecotrin -) 81 mg PO DAILY [facility] Last Admin: 06/01/17 09:03 Dose: 81 mg Azithromycin (Zithromax -) 500 mg PO DAILY [facility] Stop: 06/04/17 11:00 Last Admin: 06/01/17 11:21 Dose: 500 mg Benzocaine/Menthol (Cepacol Lozenge -) 1 each MM PRN PRN PRN Reason: SORE THROAT Last Admin: 05/29/17 22:01 Dose: 1 each Benztropine Mesylate (Cogentin -) 1 mg PO BID [facility] Last Admin: 06/01/17 09:04 Dose: 1 mg Chlorpromazine HCl (Thorazine -) 100 mg PO [facility] Last Admin: 05/31/17 21:40 Dose: 100 mg Finasteride (Proscar -) 5 mg PO DAILY [facility] Last Admin: 06/01/17 09:03 Dose: 5 mg Guaifenesin (Mucinex -) 1,200 mg PO BID [facility] Last Admin: 06/01/17 09:03 Dose: 1,200 mg Heparin Sodium (Porcine) (Heparin -) 5,000 unit SQ TID [facility] Last Admin: 06/01/17 13:27 Dose: 5,000 unit Labetalol HCl (Normodyne -) 100 mg PO BID [facility] Last Admin: 06/01/17 09:04 Dose: 100 mg Magnesium Hydroxide (Milk Of Magnesia -) 30 ml PO DAILY PRN PRN Reason: CONSTIPATION Last Admin: 05/28/17 23:03 Dose: 30 ml Perphenazine (Trilafon) 8 mg PO DAILY [facility] Last Admin: 06/01/17 09:04 Dose: 8 mg Multivit/Folic Acid/Iron ( Vitamins (Sjr) -) 1 tab PO DAILY [facility] Last Admin: 06/01/17 09:04 Dose: 1 tab Rosuvastatin Calcium (Crestor -) 10 mg PO [facility] Last Admin: 05/31/17 21:39 Dose: 10 mg Senna/Docusate Sodium (Pericolace -) 1 tablet PO BID [facility] Last Admin: 06/01/17 09:03 Dose: 1 tablet Tamsulosin HCl (Flomax -) 0.8 mg PO DAILY@0830 [facility] Last Admin: 06/01/17 08:39 Dose: 0.8 mg Thiamine HCl (Vitamin B1 -) 100 mg PO [facility] Last Admin: 05/31/17 21:38 Dose: 100 mg HOSPITAL COURSE: Date of Admission:05/28/17 Date of Discharge: 06/01/17 Discharge Summary Reason For Visit: ALCOHOLIC ENCEPHALOPATHY Current Active Problems Anemia (Chronic) Hypothyroidism (Chronic) Malnutrition (Chronic) Urinary retention due to benign prostatic hyperplasia (Chronic) Condition: Stable - Instructions Diet, Activity, Other Instructions: You were admitted to the hospital due to confusion secondary to alcohol withdrawal, you were treated with Librium and improved . you were also found to have urinary retention secondary to prostate enlargement and urinary catheter were placed to help you void to avoid any kidney damage. You blood pressure medicine has been changed: Stop using Norvasc and start using Labetolol 100 mg twice a day. Please resume all other home meds as prescribed before admission Please follow up with your primary care physician within one week Please follow with the urologist within one week if you develop fever, chills, nausea , vomiting or any urinary symptoms call 911 or come back to emergency room as soon as possible. Referrals: Kasi Wallace MD [Staff Physician] - 1 Week Disposition: [facility]/HOME HEALTH CARE - Home Medications Comprehensive Discharge Medication List: Ambulatory Orders Amitriptyline HCl [Elavil -] 100 mg PO HS 05/26/17 Amlodipine Besylate [Norvasc -] 10 mg PO DAILY 05/26/17 Benztropine Mesylate [Cogentin -] 1 mg PO BID 05/26/17 Chlorpromazine [Thorazine -] 100 mg PO HS 05/26/17 Clonazepam 1 mg PO HS 05/26/17 Perphenazine 8 mg PO DAILY 05/26/17 Rosuvastatin Calcium [Crestor] 10 mg PO DAILY 05/26/17 Triazolam 0.25 mg PO HS 05/26/17 Acetaminophen [Tylenol .Regular Strength -] 650 mg PO Q6H PRN tablet 06/01/17 Aspirin Coated [Ecotrin -] 81 mg PO DAILY #30 tablet.ec 06/01/17 Azithromycin [Zithromax 250mg Tablets -] 500 mg PO DAILY #2 tablet 06/01/17 Finasteride [Proscar -] 5 mg PO DAILY #30 tablet 06/01/17 Guaifenesin [Mucinex -] 1,200 mg PO BID #60 tablet.er 06/01/17 Labetalol HCl [Normodyne -] 100 mg PO BID #60 tablet 06/01/17 Magnesium Hydrox 2400MG/30Ml [Milk of Magnesia -] 30 ml PO DAILY PRN #1 cup Vitamins (Sjr) - 1 tab PO DAILY #30 tablet 06/01/17 Sennosides/Docusate Sodium [Pericolace -] 1 tablet PO BID tablet 06/01/17 Tamsulosin HCl [Flomax -] 0.8 mg PO DAILY@0830 #60 cap.er.24h 06/01/17 Thiamine HCl [Vitamin B1 -] 100 mg PO HS #30 tablet 06/01/17 - Discharge Referral Referred to [facility] No
--- NOTE | 2017-06-01 15:32 | PN ---
Physical Exam: SUBJECTIVE: Patient seen and examined at bed side. still complaining f cough, denies any chest pain, sob, Angulo cath in place with clean urine. denies any fever, chills, N/V/D/C. still have penes discomfort. OBJECTIVE: Vital Signs Period Temp Pulse Resp BP Sys/Jones Pulse Ox Last 24 Hr 97.5 F-98.8 F 86-108 18-20 113-127/58-92 92-94 GENERAL: Awake, alert, and fully oriented, in no acute distress.obese. HEAD: Normal with no signs of trauma. EYES: sclera anicteric, conjunctiva clear. LUNGS: Breath sounds equal, clear to auscultation bilaterally. No wheezes, and no crackles. No accessory muscle use. HEART: Regular rate and rhythm, normal S1 and S2 without murmur, rub or gallop. ABDOMEN: Soft, obese, nontender, not distended, normoactive bowel sounds, no guarding, no rebound. angulo in place withclean uria. UPPER EXTREMITIES: warm, well-perfused. No clubbing. No peripheral edema. MSK: 5/5 UE and LE strength. LOWER EXTREMITIES: warm, well-perfused. No calf tenderness. no edema. NEUROLOGICAL: Cranial nerves II-XII intact. Mildly slurred speech. Gait not observed. PSYCHIATRIC: Cooperative. Good eye contact. Appropriate mood and affect. SKIN: Warm, dry, no ecchymosis noted on UE or LE Laboratory Results - last 24 hr 06/01/17 06/01/17 05:35 05:35 WBC 9.3 RBC 3.64 L Hgb 11.0 L Hct 33.0 L MCV 90.7 MCH 30.3 MCHC 33.5 RDW 12.8 Plt Count 195 MPV 7.5 Sodium 138 Potassium 3.7 Chloride 105 Carbon Dioxide 26 Anion Gap 7 L BUN 9 Creatinine 0.9 Creat Clearance w eGFR > 60 Random Glucose 92 Calcium 8.0 L Total Bilirubin 0.5 AST 41 H D ALT 38 D Alkaline Phosphatase 108 Total Protein 6.3 L Albumin 2.8 L Active Medications Generic Name Dose Route Start Last Admin Trade Name Freq PRN Reason Stop Dose Admin Acetaminophen 650 mg 05/27/17 18:28 06/01/17 09:03 Tylenol - PO 650 mg Q6H PRN Administration PAIN LEVEL 4 - 6 Aspirin 81 mg 01/26/18 10:00 06/01/17 09:03 Ecotrin - PO 81 mg DAILY LETICIA Administration Azithromycin 500 mg 06/01/17 11:00 06/01/17 11:21 Zithromax - PO 06/04/17 11:00 500 mg DAILY LETICIA Administration Benzocaine/Menthol 1 each 05/28/17 20:41 05/29/17 22:01 Cepacol Lozenge - MM 1 each PRN PRN Administration SORE THROAT Benztropine Mesylate 1 mg 05/26/17 22:00 06/01/17 09:04 Cogentin - PO 1 mg BID LETICIA Administration Chlorpromazine HCl 100 mg 05/26/17 22:00 05/31/17 21:40 Thorazine - PO 100 mg HS LETICIA Administration Finasteride 5 mg 05/31/17 14:00 06/01/17 09:03 Proscar - PO 5 mg DAILY LETICIA Administration Guaifenesin 1,200 mg 06/01/17 10:00 06/01/17 09:03 Mucinex - PO 1,200 mg BID LETICIA Administration Heparin Sodium (Porcine) 5,000 unit 05/27/17 06:00 06/01/17 13:27 Heparin - SQ 5,000 unit TID LETICIA Administration Labetalol HCl 100 mg 05/28/17 10:00 06/01/17 09:04 Normodyne - PO 100 mg BID LETICIA Administration Magnesium Hydroxide 30 ml 05/28/17 17:15 05/28/17 23:03 Milk Of Magnesia - PO 30 ml DAILY PRN Administration CONSTIPATION Perphenazine 8 mg 05/31/17 10:00 06/01/17 09:04 Trilafon PO 8 mg DAILY LETICIA Administration Multivit/Folic Acid/Iron 1 tab 05/29/17 10:00 06/01/17 09:04 Vitamins (Sjr) - PO 1 tab DAILY LETICIA Administration Rosuvastatin Calcium 10 mg 05/26/17 22:00 05/31/17 21:39 Crestor - PO 10 mg HS LETICIA Administration Senna/Docusate Sodium 1 tablet 05/28/17 11:30 06/01/17 09:03 Pericolace - PO 1 tablet BID LETICIA Administration Tamsulosin HCl 0.8 mg 05/28/17 09:00 06/01/17 08:39 Flomax - PO 0.8 mg DAILY@0830 LETICIA Administration Thiamine HCl 100 mg 05/28/17 22:00 05/31/17 21:38 Vitamin B1 - PO 100 mg HS LETICIA Administration CBC, BMP 06/01/17 05:35 06/01/17 05:35 ASSESSMENT/PLAN: 67 y/o M w/PMH of paranoid schizophrenia, insomnia, depression, anxiety, htn, hld presents to the ER for slurred speech as per pt's sister. Being worked up for possible CVA/TIA #acute AMS likely 2/2 alcohol withdrawal, improved * no withdrawal symptoms currently * complete librium protocol * continue thiamin and folic acid * pt education about alcohol abstinence #Hydronephrosis noted on CT scan 2/2 prostate enlargement * Cont Flomax 0.8 mg po daily , added finasteride 5 mg po daily , needed turp per urologist if can not pass urine * failed DC Angulo today * maintatine Angulo * Turp on Tuesday per # Slurred speech secondary to alcohol abuse , resolved * All cardiac and neurologic workup has been negative * Cont. aspirin 81 mg po qd and rosuvastatin 10 mg po qhs * PT # Couph , dry non productive , likley 2/2 viral URI * started on Mucinix 1200 BID , * start on zithromax 3 days total # Anemia likely 2/2 blood loss hematuria ,monitor * Monitor H/H # constipation, improving * on Senna BID , Milk of mag daily * # LE pitting edema secondary to Meds SE Norvasc , improved * Switch norvasc to labetolol 100 BID # RADHA , 2/2 volum depletion vs med SE , improved #HTN, controlled * Switch Norvasc 10 mg po qd to Labetolol 100 mg po BID due to edema # Paranoid Schizophrenia, stable today, * c/w perphenazine 8 mg po qhs, chlorpromazine 100 mg po qhs, benztropine 1 mg po bid (likely for EPS) * F/U as out patient #Insomnia * cont ambien 10 mg po hs daily per [facility]. * sleep hygiene # Depression * continue on amitriptyline 100 mg po qhs, # HLD -c/w rosuvastatin 10 mg po qhs # DVT ppx * Heparin 5000 units sq q8h # FEN * No fluids * monitor electrolytes, replete as needed * Regular diet * # Dispo: * turp on tuesday Visit type - Emergency Visit Emergency Visit: Yes ED Registration Date: 05/28/17 Care time: The patient presented to the Emergency Department on the above date and was hospitalized for further evaluation of their emergent condition. - New Patient This patient is new to me today: No - Critical Care Critical Care patient: No - Discharge Referral Referred to [facility] Med P.C.: No
[2017-06-01] MEDS: THIAMINE HCL 100 MG TABLET (FP) PO SCH (21:24)
[2017-06-01] MEDS: ROSUVASTATIN CA 10 MG TABLET (FP) PO SCH (21:25)
[2017-06-01] MEDS: chlorproMAZINE HCL 100 MG TABLET PO SCH (21:26)
[2017-06-01] MEDS ORDERED: ZOLPIDEM TARTRATE 5 MG TABLET PO ONE (23:20)
[2017-06-02] MEDS: MAGNESIUM HYDROX 2400MG/30ML ORAL SUSPENSION 30 ML CUP PO PRN ×2 (04:46→11:09)
[2017-06-02] MEDS: BENZOCAINE/MENTH/CETYLPYRD CL 1 EACH LOZENGE MM PRN (04:50)
[2017-06-02] MEDS: HEPARIN NA (PORCINE) 5,000 UNITS/ML 1ML VIAL SQ SCH ×3 (05:41→21:58)
[2017-06-02 09:22] LABS: BASO % 0.5 % (0-2.0); EOS % 2.8 % (0-4.5); HEMATOCRIT 35.8 % (35.4-49); HEMOGLOBIN 11.9 GM/dL (11.7-16.9); MCH 29.8 pg (25.7-33.7); MCHC 33.1 g/dl (32.0-35.9); MEAN PLT VOLUME 7.2 fl (7.5-11.1); NEUT % 68.7 % (42.8-82.8); PLATELET COUNT 242 K/MM3 (134-434); RBC 3.98 M/mm3 (4.00-5.60); RDW 12.6 % (11.9-15.9); WHITE BLOOD COUNT 9.5 K/mm3 (4.0-10.0)
[2017-06-02] MEDS ORDERED: PT OWN MED DRAWER 7, Y5N ONE ×3 (09:35→22:06)
[2017-06-02] MEDS: TAMSULOSIN HCL 0.4 MG CAP.ER.24H (FP) PO SCH (09:41)
[2017-06-02] MEDS: AZITHROMYCIN 250 MG TABLET PO SCH (09:42)
[2017-06-02] MEDS: LABETALOL HCL 100 MG TABLET (FP) PO SCH ×2 (09:42→21:55)
[2017-06-02] MEDS: FINASTERIDE 5 MG TABLET (FP) PO SCH (09:42)
[2017-06-02] MEDS: ASPIRIN COATED 81 MG TABLET.EC PO SCH (09:42)
[2017-06-02] MEDS: SENNOSIDES/DOCUSATE COMBO (SENNA PLUS) TABLET (UD) PO SCH ×2 (09:42→21:56)
[2017-06-02] MEDS: guaiFENesin 600 MG TABLET.ER (FP) PO SCH ×2 (09:42→21:56)
[2017-06-02] MEDS: PERPHENAZINE 4 MG TABLET PO SCH (09:43)
[2017-06-02] MEDS: PRENATAL VITAMINS W/ FOLIC ACID TABLET (FP) PO SCH (09:43)
[2017-06-02] MEDS: BENZTROPINE MESYLATE 1 MG TABLET (FP) PO SCH ×2 (09:43→21:58)
[2017-06-02] MEDS ORDERED: BISACODYL 5 MG TABLET.DR (FP) PO ONE ×2 (11:30→14:30)
--- NOTE | 2017-06-02 12:16 | PN ---
Physical Exam: SUBJECTIVE: Patient seen and examined at bed side. denies any fever, chills, N/V /D/C, reports some scrotal pain, urinary catheter in place with clear urine , pending turp on tuesday, breathing is better, cough is better. OBJECTIVE: Vital Signs Period Temp Pulse Resp BP Sys/Jones Pulse Ox Last 24 Hr 97.4 F-98.5 F 80-102 18-20 117-134/68-77 92 General : AAOx3 , in NAD Head: NC/AT , Eyes: EOMI, sclera anicteric, conjuctive clear ENT: moist mucous membrane. Lungs : CTA B/L Heart : NSR, S1, S2 , No MRG Abdomen : Soft, NT, ND , + BS 4 q , angulo in place with dark urine Legs : No edema , +2 pulse , Skin: warm , dry , no peripheral changes psych: normal mood and effect. Laboratory Results - last 24 hr 06/02/17 09:00 WBC 9.5 RBC 3.98 L Hgb 11.9 Hct 35.8 MCV 90.0 MCH 29.8 MCHC 33.1 RDW 12.6 Plt Count 242 D MPV 7.2 L Neutrophils % 68.7 Lymphocytes % 17.0 Monocytes % 11.0 H Eosinophils % 2.8 Basophils % 0.5 Active Medications Generic Name Dose Route Start Last Admin Trade Name Freq PRN Reason Stop Dose Admin Acetaminophen 650 mg 05/27/17 18:28 06/01/17 09:03 Tylenol - PO 650 mg Q6H PRN Administration PAIN LEVEL 4 - 6 Aspirin 81 mg 05/27/17 10:00 06/02/17 09:42 Ecotrin - PO 81 mg DAILY LETICIA Administration Azithromycin 500 mg 06/01/17 11:00 06/02/17 09:42 Zithromax - PO 06/04/17 11:00 500 mg DAILY LETICIA Administration Benzocaine/Menthol 1 each 05/28/17 20:41 06/02/17 04:50 Cepacol Lozenge - MM 1 each PRN PRN Administration SORE THROAT Benztropine Mesylate 1 mg 05/26/17 22:00 06/02/17 09:43 Cogentin - PO 1 mg BID LETICIA Administration Chlorpromazine HCl 100 mg 05/26/17 22:00 06/01/17 21:26 Thorazine - PO 100 mg HS LETICIA Administration Finasteride 5 mg 05/31/17 14:00 06/02/17 09:42 Proscar - PO 5 mg DAILY LETICIA Administration Guaifenesin 1,200 mg 06/01/17 10:00 06/02/17 09:42 Mucinex - PO 1,200 mg BID LETICIA Administration Heparin Sodium (Porcine) 5,000 unit 05/27/17 06:00 06/02/17 05:41 Heparin - SQ 5,000 unit TID LETICIA Administration Labetalol HCl 100 mg 05/28/17 10:00 06/02/17 09:42 Normodyne - PO 100 mg BID LETICIA Administration Magnesium Hydroxide 30 ml 05/28/17 17:15 06/02/17 11:09 Milk Of Magnesia - PO 30 ml DAILY PRN Administration CONSTIPATION Perphenazine 8 mg 05/31/17 10:00 06/02/17 09:43 Trilafon PO 8 mg DAILY LETICIA Administration Multivit/Folic Acid/Iron 1 tab 05/29/17 10:00 06/02/17 09:43 Vitamins (Sjr) - PO 1 tab DAILY LETICIA Administration Rosuvastatin Calcium 10 mg 05/26/17 22:00 06/01/17 21:25 Crestor - PO 10 mg HS LETICIA Administration Senna/Docusate Sodium 1 tablet 05/28/17 11:30 06/02/17 09:42 Pericolace - PO 1 tablet BID LETICIA Administration Tamsulosin HCl 0.8 mg 05/28/17 09:00 06/02/17 09:41 Flomax - PO 0.8 mg DAILY@0830 LETICIA Administration Thiamine HCl 100 mg 05/28/17 22:00 06/01/17 21:24 Vitamin B1 - PO 100 mg HS LETICIA Administration CBC, BMP 06/02/17 09:00 06/01/17 05:35 ASSESSMENT/PLAN: 67 y/o M w/PMH of paranoid schizophrenia, insomnia, depression, anxiety, htn, hld presents to the ER for slurred speech as per pt's sister. Being admitted for further evaluation. #acute AMS likely 2/2 alcohol withdrawal, improved * no withdrawal symptoms currently * comlete librium protocol * continue thiamin and folic acid * pt education about alcohol abstinence #Hydronephrosis noted on CT scan 2/2 prostate enlargement * Cont Flomax 0.8 mg po daily , added finasteride 5 mg po daily , needed turp per urologist if can not pass urine * failed DC Angulo today and voiding trial x2 * maintain Angulo * Turp on Tuesday # Slurred speech secondary to alcohol abuse , resolved * All cardiac and neurologic workup has been negative * Cont. aspirin 81 mg po qd and rosuvastatin 10 mg po qhs * PT # Couph , dry non productive , likley 2/2 viral URI * started on Mucinex 1200 BID max dose * starte abxzithromax for 3 days (day2 ) # Anemia likely 2/2 blood loss hematuria ,stable * Monitor H/H # constipation, improving * on Senna BID , Milk of mag daily * # LE pitting edema secondary to Meds SE Norvasc , improved * Switch Norvasc to Labetolol 100 BID # RADHA , 2/2 volum depletion vs med SE , improved #HTN, controlled * Switch Norvasc 10 mg po qd to Labetolol 100 mg po BID due to edema # Paranoid Schizophrenia, stable today, * c/w perphenazine 8 mg po qhs, chlorpromazine 100 mg po qhs, benztropine 1 mg po bid (likely for EPS) * F/U as out patient #Insomnia * ambien continued by [facility]. * sleep hygiene # Depression * continue on Amitriptyline 100 mg po qhs, # HLD * c/w rosuvastatin 10 mg po qhs # DVT ppx * Heparin 5000 units sq q8h # FEN * No fluids * monitor electrolytes, replete as needed * Regular diet * # Dispo: * admit ot med surg * Pending turp procedure on Tuesday Visit type - Emergency Visit Emergency Visit: Yes ED Registration Date: 05/28/17 Care time: The patient presented to the Emergency Department on the above date and was hospitalized for further evaluation of their emergent condition. - New Patient This patient is new to me today: No - Critical Care Critical Care patient: No - Discharge Referral Referred to [facility] Med P.C.: No
--- NOTE | 2017-06-02 19:10 | PN ---
Teaching Attending Note Name of Resident: Himanshu Soto ATTENDING PHYSICIAN STATEMENT I saw and evaluated the patient. I reviewed the resident's note and discussed the case with the resident. I agree with the resident's findings and plan as documented. SUBJECTIVE: Patient is feeling better with no acute distress. Continues to be on Angulo catheter. OBJECTIVE: Vital Signs Temperature 97.9 F 06/02/17 17:21 Pulse Rate 86 06/02/17 17:21 Respiratory Rate 20 06/02/17 17:21 Blood Pressure 128/70 06/02/17 17:21 O2 Sat by Pulse Oximetry (%) 95 06/02/17 09:00 CBCD WBC 9.5 K/mm3 (4.0-10.0) 06/02/17 09:00 RBC 3.98 M/mm3 (4.00-5.60) L 06/02/17 09:00 Hgb 11.9 GM/dL (11.7-16.9) 06/02/17 09:00 Hct 35.8 % (35.4-49) 06/02/17 09:00 MCV 90.0 fl (80-96) 06/02/17 09:00 MCHC 33.1 g/dl (32.0-35.9) 06/02/17 09:00 RDW 12.6 % (11.9-15.9) 06/02/17 09:00 Plt Count 242 K/MM3 (134-434) D 06/02/17 09:00 MPV 7.2 fl (7.5-11.1) L 06/02/17 09:00 CMP Sodium 138 mmol/L (136-145) 06/01/17 05:35 Potassium 3.7 mmol/L (3.5-5.1) 06/01/17 05:35 Chloride 105 mmol/L (98-107) 06/01/17 05:35 Carbon Dioxide 26 mmol/L (21-32) 06/01/17 05:35 Anion Gap 7 (8-16) L 06/01/17 05:35 BUN 9 mg/dL (7-18) 06/01/17 05:35 Creatinine 0.9 mg/dL (0.7-1.3) 06/01/17 05:35 Creat Clearance w eGFR > 60 (>60) 06/01/17 05:35 Random Glucose 92 mg/dL (74-106) 06/01/17 05:35 Calcium 8.0 mg/dL (8.5-10.1) L 06/01/17 05:35 Total Bilirubin 0.5 mg/dL (0.2-1.0) 06/01/17 05:35 AST 41 U/L (15-37) H D 06/01/17 05:35 ALT 38 U/L (12-78) D 06/01/17 05:35 Alkaline Phosphatase 108 U/L (45-117) 06/01/17 05:35 Total Protein 6.3 g/dl (6.4-8.2) L 06/01/17 05:35 Albumin 2.8 g/dl (3.4-5.0) L 06/01/17 05:35 CARDIAC ENZYMES Creatine Kinase 219 IU/L (39-308) 05/26/17 13:03 Troponin I < 0.02 ng/ml (0.00-0.05) 05/26/17 13:03 Current Medications Generic Name Dose Route Start Last Admin Trade Name Freq PRN Reason Stop Dose Admin Acetaminophen 650 mg 05/27/17 18:28 06/01/17 09:03 Tylenol - PO 650 mg Q6H PRN Administration PAIN LEVEL 4 - 6 Aspirin 81 mg 05/27/17 10:00 06/02/17 09:42 Ecotrin - PO 81 mg DAILY LETICIA Administration Azithromycin 500 mg 06/01/17 11:00 06/02/17 09:42 Zithromax - PO 06/04/17 11:00 500 mg DAILY LETICIA Administration Benzocaine/Menthol 1 each 05/28/17 20:41 06/02/17 04:50 Cepacol Lozenge - MM 1 each PRN PRN Administration SORE THROAT Benztropine Mesylate 1 mg 05/26/17 22:00 06/02/17 09:43 Cogentin - PO 1 mg BID LETICIA Administration Chlorpromazine HCl 100 mg 05/26/17 22:00 06/01/17 21:26 Thorazine - PO 100 mg HS LETICIA Administration Finasteride 5 mg 05/31/17 14:00 06/02/17 09:42 Proscar - PO 5 mg DAILY LETICIA Administration Guaifenesin 1,200 mg 06/01/17 10:00 06/02/17 09:42 Mucinex - PO 1,200 mg BID LETICIA Administration Heparin Sodium (Porcine) 5,000 unit 05/27/17 06:00 06/02/17 14:05 Heparin - SQ Not Given TID LETICIA Labetalol HCl 100 mg 05/28/17 10:00 06/02/17 09:42 Normodyne - PO 100 mg BID LETICIA Administration Magnesium Hydroxide 30 ml 05/28/17 17:15 06/02/17 11:09 Milk Of Magnesia - PO 30 ml DAILY PRN Administration CONSTIPATION Perphenazine 8 mg 05/31/17 10:00 06/02/17 09:43 Trilafon PO 8 mg DAILY LETICIA Administration Multivit/Folic Acid/Iron 1 tab 05/29/17 10:00 06/02/17 09:43 Vitamins (Sjr) - PO 1 tab DAILY LETICIA Administration Rosuvastatin Calcium 10 mg 05/26/17 22:00 06/01/17 21:25 Crestor - PO 10 mg HS [facility] Administration Senna/Docusate Sodium 1 tablet 05/28/17 11:30 06/02/17 09:42 Pericolace - PO 1 tablet BID [facility] Administration Tamsulosin HCl 0.8 mg 05/28/17 09:00 06/02/17 09:41 Flomax - PO 0.8 mg DAILY@0830 [facility] Administration Thiamine HCl 100 mg 05/28/17 22:00 06/01/17 21:24 Vitamin B1 - PO 100 mg HS LETICIA Administration Home Medications Medication Instructions Recorded Amitriptyline HCl [Elavil -] 100 mg PO HS 05/26/17 Amlodipine Besylate [Norvasc -] 10 mg PO DAILY 05/26/17 Benztropine Mesylate [Cogentin -] 1 mg PO BID 05/26/17 Chlorpromazine [Thorazine -] 100 mg PO HS 05/26/17 Clonazepam 1 mg PO HS 05/26/17 Perphenazine 8 mg PO DAILY 05/26/17 Rosuvastatin Calcium [Crestor] 10 mg PO DAILY 05/26/17 Triazolam 0.25 mg PO HS 05/26/17 Acetaminophen [Tylenol .Regular 650 mg PO Q6H PRN tablet 06/01/17 Strength -] Aspirin Coated [Ecotrin -] 81 mg PO DAILY #30 tablet.ec 06/01/17 Azithromycin [Zithromax 250mg 500 mg PO DAILY #2 tablet 06/01/17 Tablets -] Finasteride [Proscar -] 5 mg PO DAILY #30 tablet 06/01/17 Guaifenesin [Mucinex -] 1,200 mg PO BID #60 tablet.er 06/01/17 Labetalol HCl [Normodyne -] 100 mg PO BID #60 tablet 06/01/17 Magnesium Hydrox 2400MG/30Ml [Milk 30 ml PO DAILY PRN #1 cup 06/01/17 of Magnesia -] Vitamins (Sjr) - 1 tab PO DAILY #30 tablet 06/01/17 Sennosides/Docusate Sodium 1 tablet PO BID tablet 06/01/17 [Pericolace -] Tamsulosin HCl [Flomax -] 0.8 mg PO DAILY@0830 #60 cap.er.24h 06/01/17 Thiamine HCl [Vitamin B1 -] 100 mg PO HS #30 tablet 06/01/17 PE: positive for Angulo rest of PE per resident's note ASSESSMENT AND PLAN: Patient is a 67 y/o gentleman with h/o HTN, partial colectomy, Bipolar HL, and schizophrenia who presented with AMS and slurred speech. # s/p AMS and slurred speech, due to alcohol withdrawal improved ,back to his normal state, completed Librium detox protocol ,continue folic acid and thiamine # Acute urinary retention seen by , failed voiding trial. Continue angulo will be taken for TURP procedure in am. # LE edema, probably due to Norvasc, improved after dc med, on labetalol now instead of norvasc continue # RADHA: resolved renal US with b/l hydro. On Fomax 0.8mcg, Finasteride added . # Hx of HTN: continue meds. # Hx of Schizophrenia and bipolar cont antipsychotics .F/u with psych as an outpt DVT Px: Heparin sq. NPO after midnight going for TURP
[2017-06-02] MEDS: THIAMINE HCL 100 MG TABLET (FP) PO SCH (21:55)
[2017-06-02] MEDS: ROSUVASTATIN CA 10 MG TABLET (FP) PO SCH (21:58)
[2017-06-02] MEDS: chlorproMAZINE HCL 100 MG TABLET PO SCH (22:00)
[2017-06-03] MEDS ORDERED: PT OWN MED DRAWER 7, Y5N ONE (01:21)
--- NOTE | 2017-06-03 04:56 | PN ---
Physical Exam: SUBJECTIVE: Patient seen and examined at bedside. breathing is better but he is still couphing. deneis any fever, chills, N/V/D/C. Angulo cath in place with dark urine. OBJECTIVE: Vital Signs Period Temp Pulse Resp BP Sys/Jones Pulse Ox Last 24 Hr 97.8 F-98.5 F 84-102 18-20 119-131/66-77 95-95 General : AAOx3 , in NAD Head: NC/AT , Eyes: EOMI, sclera anicteric, conjuctive clear ENT: moist mucous membrane. Lungs : CTA B/L Heart : NSR, S1, S2 , No MRG Abdomen : Soft, NT, ND , + BS 4 q , angulo in place with dark urine Legs : No edema , +2 pulse , Skin: warm , dry , no peripheral changes psych: normal mood and effect. Laboratory Results - last 24 hr 06/02/17 09:00 WBC 9.5 RBC 3.98 L Hgb 11.9 Hct 35.8 MCV 90.0 MCH 29.8 MCHC 33.1 RDW 12.6 Plt Count 242 D MPV 7.2 L Neutrophils % 68.7 Lymphocytes % 17.0 Monocytes % 11.0 H Eosinophils % 2.8 Basophils % 0.5 Active Medications Generic Name Dose Route Start Last Admin Trade Name Freq PRN Reason Stop Dose Admin Acetaminophen 650 mg 05/27/17 18:28 06/01/17 09:03 Tylenol - PO 650 mg Q6H PRN Administration PAIN LEVEL 4 - 6 Aspirin 81 mg 05/27/17 10:00 06/02/17 09:42 Ecotrin - PO 81 mg DAILY LETICIA Administration Azithromycin 500 mg 06/01/17 11:00 06/02/17 09:42 Zithromax - PO 06/04/17 11:00 500 mg DAILY LETICIA Administration Benzocaine/Menthol 1 each 05/28/17 20:41 06/02/17 04:50 Cepacol Lozenge - MM 1 each PRN PRN Administration SORE THROAT Benztropine Mesylate 1 mg 05/26/17 22:00 06/02/17 21:58 Cogentin - PO 1 mg BID LETICIA Administration Chlorpromazine HCl 100 mg 05/26/17 22:00 06/02/17 22:00 Thorazine - PO 100 mg HS LETICIA Administration Finasteride 5 mg 05/31/17 14:00 06/02/17 09:42 Proscar - PO 5 mg DAILY LETICIA Administration Guaifenesin 1,200 mg 06/01/17 10:00 06/02/17 21:56 Mucinex - PO 1,200 mg BID LETICIA Administration Heparin Sodium (Porcine) 5,000 unit 05/27/17 06:00 06/02/17 21:58 Heparin - SQ Not Given TID LETICIA Labetalol HCl 100 mg 05/28/17 10:00 06/02/17 21:55 Normodyne - PO 100 mg BID LETICIA Administration Magnesium Hydroxide 30 ml 05/28/17 17:15 06/02/17 11:09 Milk Of Magnesia - PO 30 ml DAILY PRN Administration CONSTIPATION Perphenazine 8 mg 05/31/17 10:00 06/02/17 09:43 Trilafon PO 8 mg DAILY LETICIA Administration Multivit/Folic Acid/Iron 1 tab 05/29/17 10:00 06/02/17 09:43 Vitamins (Sjr) - PO 1 tab DAILY LETICIA Administration Rosuvastatin Calcium 10 mg 05/26/17 22:00 06/02/17 21:58 Crestor - PO 10 mg HS LETICIA Administration Senna/Docusate Sodium 1 tablet 05/28/17 11:30 06/02/17 21:56 Pericolace - PO 1 tablet BID LETICIA Administration Tamsulosin HCl 0.8 mg 05/28/17 09:00 06/02/17 09:41 Flomax - PO 0.8 mg DAILY@0830 LETICIA Administration Thiamine HCl 100 mg 05/28/17 22:00 06/02/17 21:55 Vitamin B1 - PO 100 mg HS LETICIA Administration CBC, BMP 06/03/17 06:00 06/03/17 06:00 ASSESSMENT/PLAN: 67 y/o M w/PMH of paranoid schizophrenia, insomnia, depression, anxiety, htn, hld presents to the ER for slurred speech as per pt's sister. Being worked up for possible CVA/TIA #acute AMS likely 2/2 alcohol withdrawal, improved * no withdrawal symptoms currently * complete librium protocol * continue thiamin and folic acid * pt education about alcohol abstinence #Hydronephrosis noted on CT scan 2/2 prostate enlargement * Cont Flomax 0.8 mg po daily , added finasteride 5 mg po daily , needed turp per urologist if can not pass urine * failed DC Angulo today * maintatine Angulo * Turp on Tuesday per # Slurred speech secondary to alcohol abuse , resolved * All cardiac and neurologic workup has been negative * Cont. aspirin 81 mg po qd and rosuvastatin 10 mg po qhs * PT # Couph , dry non productive , likley 2/2 viral URI * started on Guaninfenisin 5 ml po TID * start on Zithromax 3 days total , day 3 # Anemia likely 2/2 blood loss hematuria ,monitor * Monitor H/H # constipation, improving * on Senna BID , Milk of mag daily * # LE pitting edema secondary to Meds SE Norvasc , improved * Switch norvasc to labetolol 100 BID # RADHA , 2/2 volum depletion vs med SE , improved #HTN, controlled * Switch Norvasc 10 mg po qd to Labetolol 100 mg po BID due to edema # Paranoid Schizophrenia, stable today, * c/w perphenazine 8 mg po qhs, chlorpromazine 100 mg po qhs, benztropine 1 mg po bid (likely for EPS) * F/U as out patient #Insomnia * cont ambien 10 mg po hs daily per [facility]. * sleep hygiene # Depression * continue on amitriptyline 100 mg po qhs, # HLD -c/w rosuvastatin 10 mg po qhs # DVT ppx * Heparin 5000 units sq q8h # FEN * No fluids * monitor electrolytes, replete as needed * Regular diet * # Dispo: * turp on tuesday Visit type - Emergency Visit Emergency Visit: Yes ED Registration Date: 05/28/17 Care time: The patient presented to the Emergency Department on the above date and was hospitalized for further evaluation of their emergent condition. - New Patient This patient is new to me today: No - Critical Care Critical Care patient: No - Discharge Referral Referred to [facility] Med P.C.: No
[2017-06-03 08:21] LABS: ALBUMIN 3.3 g/dl (3.4-5.0); ANION GAP 9 (8-16); BLOOD UREA NITROGEN 12 mg/dL (7-18); CHLORIDE 106 mmol/L (98-107); CO2 23 mmol/L (21-32); CREATININE 1.1 mg/dL (0.7-1.3); GLUCOSE,RANDOM 86 mg/dL (74-106); POTASSIUM 3.9 mmol/L (3.5-5.1); SGOT/AST 46 U/L (15-37); SGPT/ALT 61 U/L (12-78); SODIUM 138 mmol/L (136-145)
[2017-06-03 08:23] LABS: ALK PHOS 121 U/L (45-117); BILIRUBIN,TOTAL 0.6 mg/dL (0.2-1.0); TOT PROT 7.2 g/dl (6.4-8.2)
[2017-06-03 08:24] LABS: BASO % 0.6 % (0-2.0); EOS % 2.5 % (0-4.5); HEMATOCRIT 36.2 % (35.4-49); HEMOGLOBIN 11.8 GM/dL (11.7-16.9); LYMPH % 19.4 % (8-40); MCH 29.6 pg (25.7-33.7); MCHC 32.6 g/dl (32.0-35.9); MEAN CELL VOLUME 90.7 fl (80-96); MEAN PLT VOLUME 7.7 fl (7.5-11.1); MONO % 16.4 % (3.8-10.2); NEUT % 61.1 % (42.8-82.8); PLATELET COUNT 274 K/MM3 (134-434); RBC 3.99 M/mm3 (4.00-5.60); WHITE BLOOD COUNT 11.5 K/mm3 (4.0-10.0)
[2017-06-03] MEDS ORDERED: guaiFENesin/CODEINE 5 ML UNIT-DOSE CUPS PO PRN (08:52)
--- NOTE | 2017-06-03 08:55 | PN ---
Teaching Attending Note Name of Resident: Himanshu Soto ATTENDING PHYSICIAN STATEMENT I saw and evaluated the patient. I reviewed the resident's note and discussed the case with the resident. I agree with the resident's findings and plan as documented. SUBJECTIVE: Patient continues to cough, otherwise has no new complains, is going to OR for TURP with urologist. OBJECTIVE: Vital Signs Temperature 98.0 F 06/03/17 07:21 Pulse Rate 99 H 06/03/17 07:21 Respiratory Rate 18 06/02/17 21:00 Blood Pressure 131/80 06/03/17 07:21 O2 Sat by Pulse Oximetry (%) 95 06/02/17 21:00 CBCD WBC 11.5 K/mm3 (4.0-10.0) H 06/03/17 06:00 RBC 3.99 M/mm3 (4.00-5.60) L 06/03/17 06:00 Hgb 11.8 GM/dL (11.7-16.9) 06/03/17 06:00 Hct 36.2 % (35.4-49) 06/03/17 06:00 MCV 90.7 fl (80-96) 06/03/17 06:00 MCHC 32.6 g/dl (32.0-35.9) 06/03/17 06:00 RDW 13.0 % (11.9-15.9) 06/03/17 06:00 Plt Count 274 K/MM3 (134-434) 06/03/17 06:00 MPV 7.7 fl (7.5-11.1) 06/03/17 06:00 CMP Sodium 138 mmol/L (136-145) 06/03/17 06:00 Potassium 3.9 mmol/L (3.5-5.1) 06/03/17 06:00 Chloride 106 mmol/L (98-107) 06/03/17 06:00 Carbon Dioxide 23 mmol/L (21-32) 06/03/17 06:00 Anion Gap 9 (8-16) 06/03/17 06:00 BUN 12 mg/dL (7-18) D 06/03/17 06:00 Creatinine 1.1 mg/dL (0.7-1.3) D 06/03/17 06:00 Creat Clearance w eGFR > 60 (>60) 06/03/17 06:00 Random Glucose 86 mg/dL (74-106) 06/03/17 06:00 Calcium 8.0 mg/dL (8.5-10.1) L 06/03/17 06:00 Total Bilirubin 0.6 mg/dL (0.2-1.0) 06/03/17 06:00 AST 46 U/L (15-37) H 06/03/17 06:00 ALT 61 U/L (12-78) D 06/03/17 06:00 Alkaline Phosphatase 121 U/L (45-117) H 06/03/17 06:00 Total Protein 7.2 g/dl (6.4-8.2) 06/03/17 06:00 Albumin 3.3 g/dl (3.4-5.0) L 06/03/17 06:00 CARDIAC ENZYMES Creatine Kinase 219 IU/L (39-308) 05/26/17 13:03 Troponin I < 0.02 ng/ml (0.00-0.05) 05/26/17 13:03 Current Medications Generic Name Dose Route Start Last Admin Trade Name Freq PRN Reason Stop Dose Admin Acetaminophen 650 mg 05/27/17 18:28 06/01/17 09:03 Tylenol - PO 650 mg Q6H PRN Administration PAIN LEVEL 4 - 6 Aspirin 81 mg 05/27/17 10:00 06/02/17 09:42 Ecotrin - PO 81 mg DAILY LETICIA Administration Azithromycin 500 mg 06/01/17 11:00 06/02/17 09:42 Zithromax - PO 06/04/17 11:00 500 mg DAILY LETICIA Administration Benzocaine/Menthol 1 each 05/28/17 20:41 06/02/17 04:50 Cepacol Lozenge - MM 1 each PRN PRN Administration SORE THROAT Benztropine Mesylate 1 mg 05/26/17 22:00 06/02/17 21:58 Cogentin - PO 1 mg BID LETICIA Administration Chlorpromazine HCl 100 mg 05/26/17 22:00 06/02/17 22:00 Thorazine - PO 100 mg HS LETICIA Administration Finasteride 5 mg 05/31/17 14:00 06/02/17 09:42 Proscar - PO 5 mg DAILY LETICIA Administration Guaifenesin/Codeine Phosphate 5 ml 06/03/17 08:52 Robitussin Ac - PO TID PRN COUGH Labetalol HCl 100 mg 05/28/17 10:00 06/02/17 21:55 Normodyne - PO 100 mg BID LETICIA Administration Magnesium Hydroxide 30 ml 05/28/17 17:15 06/02/17 11:09 Milk Of Magnesia - PO 30 ml DAILY PRN Administration CONSTIPATION Perphenazine 8 mg 05/31/17 10:00 06/02/17 09:43 Trilafon PO 8 mg DAILY LETICIA Administration Multivit/Folic Acid/Iron 1 tab 05/29/17 10:00 06/02/17 09:43 Vitamins (Sjr) - PO 1 tab DAILY LETICIA Administration Rosuvastatin Calcium 10 mg 05/26/17 22:00 06/02/17 21:58 Crestor - PO 10 mg HS [facility] Administration Senna/Docusate Sodium 1 tablet 05/28/17 11:30 06/02/17 21:56 Pericolace - PO 1 tablet BID LETICIA Administration Tamsulosin HCl 0.8 mg 05/28/17 09:00 06/02/17 09:41 Flomax - PO 0.8 mg DAILY@0830 LETICIA Administration Thiamine HCl 100 mg 05/28/17 22:00 06/02/17 21:55 Vitamin B1 - PO 100 mg HS LETICIA Administration Home Medications Medication Instructions Recorded Amitriptyline HCl [Elavil -] 100 mg PO HS 05/26/17 Amlodipine Besylate [Norvasc -] 10 mg PO DAILY 05/26/17 Benztropine Mesylate [Cogentin -] 1 mg PO BID 05/26/17 Chlorpromazine [Thorazine -] 100 mg PO HS 05/26/17 Clonazepam 1 mg PO HS 05/26/17 Perphenazine 8 mg PO DAILY 05/26/17 Rosuvastatin Calcium [Crestor] 10 mg PO DAILY 05/26/17 Triazolam 0.25 mg PO HS 05/26/17 Acetaminophen [Tylenol .Regular 650 mg PO Q6H PRN tablet 06/01/17 Strength -] Aspirin Coated [Ecotrin -] 81 mg PO DAILY #30 tablet.ec 06/01/17 Azithromycin [Zithromax 250mg 500 mg PO DAILY #2 tablet 06/01/17 Tablets -] Finasteride [Proscar -] 5 mg PO DAILY #30 tablet 06/01/17 Guaifenesin [Mucinex -] 1,200 mg PO BID #60 tablet.er 06/01/17 Labetalol HCl [Normodyne -] 100 mg PO BID #60 tablet 06/01/17 Magnesium Hydrox 2400MG/30Ml [Milk 30 ml PO DAILY PRN #1 cup 06/01/17 of Magnesia -] Vitamins (Sjr) - 1 tab PO DAILY #30 tablet 06/01/17 Sennosides/Docusate Sodium 1 tablet PO BID tablet 06/01/17 [Pericolace -] Tamsulosin HCl [Flomax -] 0.8 mg PO DAILY@0830 #60 cap.er.24h 06/01/17 Thiamine HCl [Vitamin B1 -] 100 mg PO HS #30 tablet 06/01/17 PE: per resident's note ASSESSMENT AND PLAN: Patient is a 67 y/o gentleman with h/o HTN, partial colectomy, Bipolar HL, and schizophrenia who presented with AMS and slurred speech. # RADHA: resolved renal US with b/l hydro. On Fomax 0.8mcg, Finasteride added . Voiding trial failed , patient is going for TURP today since unable to urinate. # s/p AMS and slurred speech, due to alcohol withdrawal. back to his normal state, last dose of Librium completed yesterday ,continue folic acid and thiamine # LE edema, probably due to Norvasc, improved after dc med, on labetalol now instead of norvasc continue # Hx of HTN: continue meds. # Hx of Schizophrenia and bipolar cont antipsychotics .F/u with psych as an outpt DVT Px: Heparin sq.
[2017-06-03] MEDS: TAMSULOSIN HCL 0.4 MG CAP.ER.24H (FP) PO SCH (09:05)
[2017-06-03] MEDS: SENNOSIDES/DOCUSATE COMBO (SENNA PLUS) TABLET (UD) PO SCH ×2 (09:36→21:36)
[2017-06-03] MEDS: FINASTERIDE 5 MG TABLET (FP) PO SCH (09:36)
[2017-06-03] MEDS: ASPIRIN COATED 81 MG TABLET.EC PO SCH (09:36)
[2017-06-03] MEDS: PRENATAL VITAMINS W/ FOLIC ACID TABLET (FP) PO SCH (09:36)
[2017-06-03] MEDS: LABETALOL HCL 100 MG TABLET (FP) PO SCH ×2 (09:36→21:36)
[2017-06-03] MEDS: PERPHENAZINE 4 MG TABLET PO SCH (09:36)
[2017-06-03] MEDS: AZITHROMYCIN 250 MG TABLET PO SCH (09:36)
[2017-06-03] MEDS: BENZTROPINE MESYLATE 1 MG TABLET (FP) PO SCH ×2 (09:36→21:39)
[2017-06-03] MEDS ORDERED: PROPOFOL 20 ML ONE ×3 (14:13)
[2017-06-03] MEDS ORDERED: MIDAZOLAM HCL 2 MG/2 ML SINGLE DOSE VIAL ONE ×2 (14:14)
[2017-06-03] MEDS ORDERED: ceFAZolin SODIUM 1 GM VIAL IVPB ONE ×2 (15:40)
[2017-06-03] MEDS ORDERED: ceFAZolin SODIUM 1 GM VIAL ONE (15:42)
[2017-06-03] MEDS ORDERED: ONDANSETRON 4 MG/2 ML VIAL ONE (16:12)
--- NOTE | 2017-06-03 16:17 | OP ---
Operative Note - Note: Operative Date: 06/03/17 Pre-Operative Diagnosis: BPH, urinary retention Operation: bipolar TURP Surgeon: Preston Mcallister Anesthesia: Spinal Operative Report Dictated: Yes
[2017-06-03] MEDS ORDERED: IBUPROFEN 800 MG/8 ML IJ IVPB PRN (16:18)
[2017-06-03] MEDS ORDERED: ACETAMINOPHEN 1000 MG/100 ML VIAL (NON FORMULARY) IVPB ONE (16:30)
[2017-06-03] MEDS ORDERED: ONDANSETRON 4 MG/2 ML VIAL IVPUSH PRN (16:31)
[2017-06-03] MEDS ORDERED: ACETAMINOPHEN 325 MG TABLET (FP) PO PRN (17:34)
[2017-06-03] MEDS ORDERED: BENZOCAINE/MENTH/CETYLPYRD CL 1 EACH LOZENGE MM PRN (17:34)
[2017-06-03 18:01] LABS: BASO % 0.6 % (0-2.0); EOS % 2.7 % (0-4.5); HEMATOCRIT 39.3 % (35.4-49); HEMOGLOBIN 12.9 GM/dL (11.7-16.9); LYMPH % 15.7 % (8-40); MCH 29.9 pg (25.7-33.7); MCHC 32.9 g/dl (32.0-35.9); MEAN PLT VOLUME 7.5 fl (7.5-11.1); MONO % 16.7 % (3.8-10.2); NEUT % 64.3 % (42.8-82.8); PLATELET COUNT 242 K/MM3 (134-434); RBC 4.31 M/mm3 (4.00-5.60); RDW 12.7 % (11.9-15.9); WHITE BLOOD COUNT 9.7 K/mm3 (4.0-10.0)
--- NOTE | 2017-06-03 18:04 | OP ---
DATE OF OPERATION: 06/03/2017 PREOPERATIVE DIAGNOSIS: Benign prostatic hypertrophy, urinary retention. POSTOPERATIVE DIAGNOSIS: Benign prostatic hypertrophy, urinary retention. PROCEDURE: Cystoscopy, transurethral resection of bladder tumor. ANESTHESIA: General, Dr. Alford, spinal anesthetic. SPECIMEN: None. FINDINGS: Obstructive prostate tissue. SURGEON: Preston Mcallister MD ESTIMATED BLOOD LOSS: 50 mL. PREOPERATIVE INDICATIONS: The patient is a 67-year-old male who comes in for other issues but is found to be in urinary retention. He has a markedly enlarged prostate on CT with trabeculations of the bladder throughout. No tumors or stones were seen. The patient failed multiple trials to void. He comes to the OR for TURBT. DESCRIPTION OF PROCEDURE: The patient was brought to the OR. Placed on the table in the supine position. He was given a spinal anesthetic. The groin was prepped and draped sterilely. Cystoscopy was performed. 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 The prostate itself was enlarged and obstructed. The bladder had trabeculations throughout. No tumors or stones were seen. Using the PlasmaButton, the obstructing tissue from the bladder neck to the area just proximal to the verumontanum was vaporized. There was an open channel. Good hemostasis was maintained throughout. At the end of the case, the sphincter muscle and the UOs were seen and not injured. A 22-[place] 3-way Arellano catheter was left in place for postoperative drainage. The patient was woken up. Nader [id number]
[2017-06-03] MEDS: DEXTROSE 5%-0.45% SALINE 1,000 ML IV SCH (18:15)
[2017-06-03 18:52] LABS: ANION GAP 7 (8-16); BLOOD UREA NITROGEN 11 mg/dL (7-18); CHLORIDE 106 mmol/L (98-107); CO2 25 mmol/L (21-32); CREATININE 1.1 mg/dL (0.7-1.3); GLUCOSE,RANDOM 99 mg/dL (74-106); POTASSIUM 4.1 mmol/L (3.5-5.1); SODIUM 138 mmol/L (136-145)
[2017-06-03] MEDS: LACTATED RINGERS SOLUTION 1,000 ML IV SCH (20:45)
[2017-06-03] MEDS: ROSUVASTATIN CA 10 MG TABLET (FP) PO SCH (21:36)
[2017-06-03] MEDS: THIAMINE HCL 100 MG TABLET (FP) PO SCH (21:37)
[2017-06-03] MEDS: chlorproMAZINE HCL 100 MG TABLET PO SCH (21:39)
[2017-06-04] MEDS: DEXTROSE 5%-0.45% SALINE 1,000 ML IV SCH ×2 (03:38→19:31)
[2017-06-04 07:38] LABS: ALBUMIN 2.7 g/dl (3.4-5.0); ALK PHOS 104 U/L (45-117); ANION GAP 10 (8-16); BILIRUBIN,TOTAL 0.2 mg/dL (0.2-1.0); BLOOD UREA NITROGEN 9 mg/dL (7-18); CALCIUM 7.7 mg/dL (8.5-10.1); CHLORIDE 106 mmol/L (98-107); CO2 25 mmol/L (21-32); CREATININE 0.9 mg/dL (0.7-1.3); GLUCOSE,RANDOM 103 mg/dL (74-106); POTASSIUM 3.7 mmol/L (3.5-5.1); SGOT/AST 26 U/L (15-37); SGPT/ALT 44 U/L (12-78); SODIUM 141 mmol/L (136-145); TOT PROT 6.3 g/dl (6.4-8.2)
[2017-06-04 07:59] LABS: BASO % 0.6 % (0-2.0); EOS % 2.7 % (0-4.5); HEMATOCRIT 33.8 % (35.4-49); HEMOGLOBIN 11.2 GM/dL (11.7-16.9); LYMPH % 19.1 % (8-40); MCHC 33.3 g/dl (32.0-35.9); MEAN CELL VOLUME 90.1 fl (80-96); MEAN PLT VOLUME 7.2 fl (7.5-11.1); MONO % 14.8 % (3.8-10.2); NEUT % 62.8 % (42.8-82.8); PLATELET COUNT 259 K/MM3 (134-434); RBC 3.75 M/mm3 (4.00-5.60); RDW 12.6 % (11.9-15.9); WHITE BLOOD COUNT 9.7 K/mm3 (4.0-10.0)
[2017-06-04] MEDS ORDERED: AZITHROMYCIN 250 MG TABLET PO SCH (10:00)
--- NOTE | 2017-06-04 10:32 | PN ---
Progress Note, Physician Chief Complaint: day #1 s/p TURP - Current Medication List Current Medications: Active Medications Acetaminophen (Tylenol -) 650 mg PO Q6H PRN PRN Reason: PAIN LEVEL 4 - 6 Last Admin: 06/03/17 21:35 Dose: 650 mg Aspirin (Ecotrin -) 81 mg PO DAILY [facility] Azithromycin (Zithromax -) 500 mg PO DAILY [facility] Stop: 06/04/17 11:00 Benzocaine/Menthol (Cepacol Lozenge -) 1 each MM PRN PRN PRN Reason: SORE THROAT Benztropine Mesylate (Cogentin -) 1 mg PO BID [facility] Last Admin: 06/03/17 21:39 Dose: 1 mg Chlorpromazine HCl (Thorazine -) 100 mg PO [facility] Last Admin: 06/03/17 21:39 Dose: 100 mg Fentanyl (Sublimaze Injection -) 25 mcg IVPUSH [id number] PRN PRN Reason: PAIN-PACU ORDER X 4 DOSES ONLY Finasteride (Proscar -) 5 mg PO DAILY [facility] Guaifenesin/Codeine Phosphate (Robitussin Ac -) 5 ml PO TID PRN PRN Reason: COUGH Dextrose/Sodium Chloride (D5-1/2ns -) 1,000 mls @ 125 mls/hr IV ASDIR [facility] Last Admin: 06/04/17 03:38 Dose: 125 mls/hr Lactated Ringer's (Lactated Ringers Solution) 1,000 mls @ 75 mls/hr IV ASDIR [facility] Last Admin: 06/03/17 20:45 Dose: Not Given Ibuprofen (Caldolor Injection -) 800 mg IVPB Q8H PRN PRN Reason: PAIN LEVEL 1-5 Last Admin: 06/03/17 22:50 Dose: 800 mg Labetalol HCl (Normodyne -) 100 mg PO BID [facility] Last Admin: 06/03/17 21:36 Dose: 100 mg Magnesium Hydroxide (Milk Of Magnesia -) 30 ml PO DAILY PRN PRN Reason: CONSTIPATION Ondansetron HCl (Zofran Injection) 4 mg IVPUSH Q6H PRN PRN Reason: NAUSEA AND/OR VOMITING Perphenazine (Trilafon) 8 mg PO DAILY [facility] Multivit/Folic Acid/Iron ( Vitamins (Sjr) -) 1 tab PO DAILY [facility] Rosuvastatin Calcium (Crestor -) 10 mg PO [facility] Last Admin: 06/03/17 21:36 Dose: 10 mg Senna/Docusate Sodium (Pericolace -) 1 tablet PO BID [facility] Last Admin: 06/03/17 21:36 Dose: 1 tablet Tamsulosin HCl (Flomax -) 0.8 mg PO DAILY@0830 [facility] Thiamine HCl (Vitamin B1 -) 100 mg PO [facility] Last Admin: 06/03/17 21:37 Dose: 100 mg - Objective Vital Signs: Vital Signs Temperature 97.7 F 06/04/17 05:47 Pulse Rate 69 06/04/17 05:47 Respiratory Rate 20 06/04/17 05:47 Blood Pressure 111/75 06/04/17 05:47 O2 Sat by Pulse Oximetry (%) 94 L 06/03/17 21:00 Constitutional: Yes: Well Nourished, No Distress, Calm Labs: CBC, BMP 06/04/17 06:00 06/04/17 06:00 INR, PTT INR 0.96 (0.82-1.09) 05/26/17 13:03 Assessment/Plan pt s/p TURP with spinal. Doing well after surgery- no anesthetic issues/ complications. Continue current care
[2017-06-04] MEDS: SENNOSIDES/DOCUSATE COMBO (SENNA PLUS) TABLET (UD) PO SCH ×2 (10:40→21:42)
[2017-06-04] MEDS: ASPIRIN COATED 81 MG TABLET.EC PO SCH (10:40)
[2017-06-04] MEDS: FINASTERIDE 5 MG TABLET (FP) PO SCH (10:40)
[2017-06-04] MEDS: TAMSULOSIN HCL 0.4 MG CAP.ER.24H (FP) PO SCH (10:41)
[2017-06-04] MEDS: LABETALOL HCL 100 MG TABLET (FP) PO SCH ×2 (10:41→21:42)
[2017-06-04] MEDS: PRENATAL VITAMINS W/ FOLIC ACID TABLET (FP) PO SCH (10:42)
[2017-06-04] MEDS: BENZTROPINE MESYLATE 1 MG TABLET (FP) PO SCH ×2 (10:42→21:43)
[2017-06-04] MEDS: PERPHENAZINE 4 MG TABLET PO SCH (10:42)
--- NOTE | 2017-06-04 17:27 | PN ---
Physical Exam: SUBJECTIVE: Patient seen and examined Patient is better today. No fever or chills, no shortness of breath. OBJECTIVE: Vital Signs Period Temp Pulse Resp BP Sys/Jones Pulse Ox Last 24 Hr 97.6 F-98.4 F 69-97 13-22 108-144/63-85 94-100 GENERAL: The patient is awake, alert, and fully oriented, in no acute distress. HEAD: Normal with no signs of trauma. EYES: PERRL, extraocular movements intact, sclera anicteric, conjunctiva clear. ENT: Ears normal, oropharynx clear without exudates, moist mucous membranes. NECK: Trachea midline, full range of motion, supple. LUNGS: Breath sounds equal, clear to auscultation bilaterally, no wheezes, no crackles, no accessory muscle use. HEART: Regular rate and rhythm, S1, S2 without murmur, rub or gallop. ABDOMEN: Soft, nontender, nondistended, normoactive bowel sounds, no guarding, no rebound, no hepatosplenomegaly, no masses. EXTREMITIES: 2+ pulses, warm, well-perfused, no edema. NEUROLOGICAL: Cranial nerves II through XII grossly intact. Normal speech, gait not observed. PSYCH: Normal mood, normal affect. SKIN: Warm, dry, normal turgor, no rashes or lesions noted : positive angulo with CBI Laboratory Results - last 24 hr 06/03/17 06/03/17 06/04/17 17:45 17:45 06:00 WBC 9.7 9.7 RBC 4.31 3.75 L Hgb 12.9 11.2 L D Hct 39.3 33.8 L MCV 91.0 90.1 MCH 29.9 30.0 MCHC 32.9 33.3 RDW 12.7 12.6 Plt Count 242 259 MPV 7.5 7.2 L Neutrophils % 64.3 62.8 Lymphocytes % 15.7 19.1 D Monocytes % 16.7 H 14.8 H Eosinophils % 2.7 2.7 Basophils % 0.6 0.6 Sodium 138 Potassium 4.1 Chloride 106 Carbon Dioxide 25 Anion Gap 7 L BUN 11 Creatinine 1.1 Creat Clearance w eGFR Random Glucose 99 Calcium 8.0 L Total Bilirubin AST ALT Alkaline Phosphatase Total Protein Albumin 06/04/17 06:00 WBC RBC Hgb Hct MCV MCH MCHC RDW Plt Count MPV Neutrophils % Lymphocytes % Monocytes % Eosinophils % Basophils % Sodium 141 Potassium 3.7 Chloride 106 Carbon Dioxide 25 Anion Gap 10 BUN 9 Creatinine 0.9 Creat Clearance w eGFR > 60 Random Glucose 103 Calcium 7.7 L Total Bilirubin 0.2 D AST 26 D ALT 44 D Alkaline Phosphatase 104 Total Protein 6.3 L Albumin 2.7 L Active Medications Generic Name Dose Route Start Last Admin Trade Name Freq PRN Reason Stop Dose Admin Acetaminophen 650 mg 06/03/17 17:34 06/03/17 21:35 Tylenol - PO 650 mg Q6H PRN Administration PAIN LEVEL 4 - 6 Aspirin 81 mg 06/04/17 10:00 06/04/17 10:40 Ecotrin - PO 81 mg DAILY LETICIA Administration Benzocaine/Menthol 1 each 06/03/17 17:34 Cepacol Lozenge - MM PRN PRN SORE THROAT Benztropine Mesylate 1 mg 06/03/17 22:00 06/04/17 10:42 Cogentin - PO 1 mg BID LETICIA Administration Chlorpromazine HCl 100 mg 06/03/17 22:00 06/03/17 21:39 Thorazine - PO 100 mg HS LETICIA Administration Fentanyl 25 mcg 06/03/17 16:25 Sublimaze Injection - IVPUSH [id number] PRN PAIN-PACU ORDER X 4 DOSES ONLY Finasteride 5 mg 06/04/17 10:00 06/04/17 10:40 Proscar - PO 5 mg DAILY LETICIA Administration Guaifenesin/Codeine Phosphate 5 ml 06/03/17 17:34 Robitussin Ac - PO TID PRN COUGH Dextrose/Sodium Chloride 1,000 mls @ 125 mls/hr 06/03/17 16:30 06/04/17 03:38 D5-1/2ns - IV 125 mls/hr ASDIR LETICIA Administration Lactated Ringer's 1,000 mls @ 75 mls/hr 06/03/17 16:30 06/03/17 20:45 Lactated Ringers Solution IV Not Given ASDIR LETICIA Ibuprofen 800 mg 06/03/17 16:18 06/03/17 22:50 Caldolor Injection - IVPB 800 mg Q8H PRN Administration PAIN LEVEL 1-5 Labetalol HCl 100 mg 06/03/17 22:00 06/04/17 10:41 Normodyne - PO 100 mg BID LETICIA Administration Magnesium Hydroxide 30 ml 06/03/17 17:34 Milk Of Magnesia - PO DAILY PRN CONSTIPATION Ondansetron HCl 4 mg 06/03/17 16:31 Zofran Injection IVPUSH Q6H PRN NAUSEA AND/OR VOMITING Perphenazine 8 mg 06/04/17 10:00 06/04/17 10:42 Trilafon PO 8 mg DAILY LETICIA Administration Multivit/Folic Acid/Iron 1 tab 06/04/17 10:00 06/04/17 10:42 Vitamins (Sjr) - PO 1 tab DAILY LETICIA Administration Rosuvastatin Calcium 10 mg 06/03/17 22:00 06/03/17 21:36 Crestor - PO 10 mg HS LETICIA Administration Senna/Docusate Sodium 1 tablet 06/03/17 22:00 06/04/17 10:40 Pericolace - PO 1 tablet BID LETICIA Administration Tamsulosin HCl 0.8 mg 06/04/17 08:30 06/04/17 10:41 Flomax - PO 0.8 mg DAILY@0830 LETICIA Administration Thiamine HCl 100 mg 06/03/17 22:00 06/03/17 21:37 Vitamin B1 - PO 100 mg HS LETICIA Administration ASSESSMENT AND PLAN: Patient is a 67 y/o gentleman with h/o HTN, partial colectomy, Bipolar HL, and schizophrenia who presented with AMS and slurred speech. # RADHA: resolved renal US with b/l hydro. On Flomax 0.8mcg, Finasteride added . Voiding trial failed s/p TURP today with CBI # s/p AMS and slurred speech, due to alcohol withdrawal. back to his normal state, s/p Librium protocol completed ,continue folic acid and thiamine # LE edema, improved post dc Norvasc, on labetalol now instead of norvasc continue # Hx of HTN: continue meds. # Hx of Schizophrenia and bipolar cont antipsychotics .F/u with psych as an outpt DVT Px: Heparin is on Hold Visit type - Emergency Visit Emergency Visit: Yes ED Registration Date: 05/28/17 Care time: The patient presented to the Emergency Department on the above date and was hospitalized for further evaluation of their emergent condition. - New Patient This patient is new to me today: No - Critical Care Critical Care patient: No - Discharge Referral Referred to [facility] Med P.C.: No
[2017-06-04] MEDS: LACTATED RINGERS SOLUTION 1,000 ML IV SCH (19:31)
[2017-06-04] MEDS ORDERED: PT OWN MED DRAWER 7, Y5N ONE ×3 (21:40→22:12)
[2017-06-04] MEDS: THIAMINE HCL 100 MG TABLET (FP) PO SCH (21:42)
[2017-06-04] MEDS: chlorproMAZINE HCL 100 MG TABLET PO SCH (21:43)
[2017-06-04] MEDS: ROSUVASTATIN CA 10 MG TABLET (FP) PO SCH (21:43)
[2017-06-05] MEDS: guaiFENesin/CODEINE 5 ML UNIT-DOSE CUPS PO PRN ×2 (00:29→06:45)
[2017-06-05] MEDS: SENNOSIDES/DOCUSATE COMBO (SENNA PLUS) TABLET (UD) PO SCH ×2 (10:39→21:40)
[2017-06-05] MEDS: ASPIRIN COATED 81 MG TABLET.EC PO SCH (10:39)
[2017-06-05] MEDS: LABETALOL HCL 100 MG TABLET (FP) PO SCH ×2 (10:40→21:42)
[2017-06-05] MEDS: MAGNESIUM HYDROX 2400MG/30ML ORAL SUSPENSION 30 ML CUP PO PRN ×2 (10:40→21:43)
[2017-06-05] MEDS: TAMSULOSIN HCL 0.4 MG CAP.ER.24H (FP) PO SCH (10:40)
[2017-06-05] MEDS: PRENATAL VITAMINS W/ FOLIC ACID TABLET (FP) PO SCH (10:41)
[2017-06-05] MEDS: BENZTROPINE MESYLATE 1 MG TABLET (FP) PO SCH ×2 (10:42→21:41)
[2017-06-05] MEDS: PERPHENAZINE 4 MG TABLET PO SCH (10:43)
[2017-06-05] MEDS: FINASTERIDE 5 MG TABLET (FP) PO SCH (10:46)
[2017-06-05] MEDS ORDERED: PT OWN MED DRAWER 7, Y5N ONE (11:33)
--- NOTE | 2017-06-05 14:41 | PN ---
Progress Note (short form) - Note Progress Note: CBI continues, no fever or chills, no shortness of breath. Vital Signs Temperature 98.2 F 06/05/17 10:00 Pulse Rate 90 06/05/17 10:00 Respiratory Rate 18 06/05/17 10:00 Blood Pressure 137/78 06/05/17 10:00 O2 Sat by Pulse Oximetry (%) 94 L 06/03/17 21:00 GENERAL: The patient is awake, alert, and fully oriented, in no acute distress. HEAD: Normal with no signs of trauma. EYES: PERRL, extraocular movements intact, sclera anicteric, conjunctiva clear. ENT: Ears normal, oropharynx clear without exudates, moist mucous membranes. NECK: Trachea midline, full range of motion, supple. LUNGS: Breath sounds equal, clear to auscultation bilaterally, no wheezes, no crackles, no accessory muscle use. HEART: Regular rate and rhythm, S1, S2 positive , no rub or gallop. ABDOMEN: Soft, nontender, nondistended, normoactive bowel sounds, no guarding, no rebound, no hepatosplenomegaly, no masses. EXTREMITIES: 2+ pulses, warm, well-perfused, no edema. NEUROLOGICAL: Cranial nerves II through XII grossly intact. Normal speech, gait is within normal . PSYCH: Normal mood, normal affect. SKIN: Warm, dry, normal turgor, no rashes or lesions noted : on angulo catheter cleared up CBCD WBC 9.7 K/mm3 (4.0-10.0) 06/04/17 06:00 RBC 3.75 M/mm3 (4.00-5.60) L 06/04/17 06:00 Hgb 11.2 GM/dL (11.7-16.9) L D 06/04/17 06:00 Hct 33.8 % (35.4-49) L 06/04/17 06:00 MCV 90.1 fl (80-96) 06/04/17 06:00 MCHC 33.3 g/dl (32.0-35.9) 06/04/17 06:00 RDW 12.6 % (11.9-15.9) 06/04/17 06:00 Plt Count 259 K/MM3 (134-434) 06/04/17 06:00 MPV 7.2 fl (7.5-11.1) L 06/04/17 06:00 CMP Sodium 141 mmol/L (136-145) 06/04/17 06:00 Potassium 3.7 mmol/L (3.5-5.1) 06/04/17 06:00 Chloride 106 mmol/L (98-107) 06/04/17 06:00 Carbon Dioxide 25 mmol/L (21-32) 06/04/17 06:00 Anion Gap 10 (8-16) 06/04/17 06:00 BUN 9 mg/dL (7-18) 06/04/17 06:00 Creatinine 0.9 mg/dL (0.7-1.3) 06/04/17 06:00 Creat Clearance w eGFR > 60 (>60) 06/04/17 06:00 Random Glucose 103 mg/dL (74-106) 06/04/17 06:00 Calcium 7.7 mg/dL (8.5-10.1) L 06/04/17 06:00 Total Bilirubin 0.2 mg/dL (0.2-1.0) D 06/04/17 06:00 AST 26 U/L (15-37) D 06/04/17 06:00 ALT 44 U/L (12-78) D 06/04/17 06:00 Alkaline Phosphatase 104 U/L (45-117) 06/04/17 06:00 Total Protein 6.3 g/dl (6.4-8.2) L 06/04/17 06:00 Albumin 2.7 g/dl (3.4-5.0) L 06/04/17 06:00 CARDIAC ENZYMES Creatine Kinase 219 IU/L (39-308) 05/26/17 13:03 Troponin I < 0.02 ng/ml (0.00-0.05) 05/26/17 13:03 Current Medications Generic Name Dose Route Start Last Admin Trade Name Freq PRN Reason Stop Dose Admin Acetaminophen 650 mg 06/03/17 17:34 06/03/17 21:35 Tylenol - PO 650 mg Q6H PRN Administration PAIN LEVEL 4 - 6 Aspirin 81 mg 06/04/17 10:00 06/05/17 10:39 Ecotrin - PO 81 mg DAILY LETICIA Administration Benzocaine/Menthol 1 each 06/03/17 17:34 Cepacol Lozenge - MM PRN PRN SORE THROAT Benztropine Mesylate 1 mg 06/03/17 22:00 06/05/17 10:42 Cogentin - PO 1 mg BID LETICIA Administration Chlorpromazine HCl 100 mg 06/03/17 22:00 06/04/17 21:43 Thorazine - PO 100 mg HS LETICIA Administration Fentanyl 25 mcg 06/03/17 16:25 Sublimaze Injection - IVPUSH [id number] PRN PAIN-PACU ORDER X 4 DOSES ONLY Finasteride 5 mg 06/04/17 10:00 06/05/17 10:46 Proscar - PO 5 mg DAILY LETICIA Administration Guaifenesin/Codeine Phosphate 5 ml 06/03/17 17:34 06/05/17 06:45 Robitussin Ac - PO 5 ml TID PRN Administration COUGH Dextrose/Sodium Chloride 1,000 mls @ 125 mls/hr 06/03/17 16:30 06/04/17 19:31 D5-1/2ns - IV Not Given ASDIR LETICIA Lactated Ringer's 1,000 mls @ 75 mls/hr 06/03/17 16:30 06/04/17 19:31 Lactated Ringers Solution IV Not Given ASDIR LETICIA Ibuprofen 800 mg 06/03/17 16:18 06/03/17 22:50 Caldolor Injection - IVPB 800 mg Q8H PRN Administration PAIN LEVEL 1-5 Labetalol HCl 100 mg 06/03/17 22:00 06/05/17 10:40 Normodyne - PO 100 mg BID LETICIA Administration Magnesium Hydroxide 30 ml 06/03/17 17:34 06/05/17 10:40 Milk Of Magnesia - PO 30 ml DAILY PRN Administration CONSTIPATION Ondansetron HCl 4 mg 06/03/17 16:31 Zofran Injection IVPUSH Q6H PRN NAUSEA AND/OR VOMITING Perphenazine 8 mg 06/04/17 10:00 06/05/17 10:43 Trilafon PO 8 mg DAILY LETICIA Administration Multivit/Folic Acid/Iron 1 tab 06/04/17 10:00 06/05/17 10:41 Vitamins (Sjr) - PO 1 tab DAILY [facility] Administration Rosuvastatin Calcium 10 mg 06/03/17 22:00 06/04/17 21:43 Crestor - PO 10 mg HS LETICIA Administration Senna/Docusate Sodium 1 tablet 06/03/17 22:00 06/05/17 10:39 Pericolace - PO 1 tablet BID LETICIA Administration Tamsulosin HCl 0.8 mg 06/04/17 08:30 06/05/17 10:40 Flomax - PO 0.8 mg DAILY@0830 LETICIA Administration Thiamine HCl 100 mg 06/03/17 22:00 06/04/17 21:42 Vitamin B1 - PO 100 mg HS LETICIA Administration Home Medications Medication Instructions Recorded Amitriptyline HCl [Elavil -] 100 mg PO HS 05/26/17 Amlodipine Besylate [Norvasc -] 10 mg PO DAILY 05/26/17 Benztropine Mesylate [Cogentin -] 1 mg PO BID 05/26/17 Chlorpromazine [Thorazine -] 100 mg PO HS 05/26/17 Clonazepam 1 mg PO HS 05/26/17 Perphenazine 8 mg PO DAILY 05/26/17 Rosuvastatin Calcium [Crestor] 10 mg PO DAILY 05/26/17 Triazolam 0.25 mg PO HS 05/26/17 Acetaminophen [Tylenol .Regular 650 mg PO Q6H PRN tablet 06/01/17 Strength -] Aspirin Coated [Ecotrin -] 81 mg PO DAILY #30 tablet.ec 06/01/17 Azithromycin [Zithromax 250mg 500 mg PO DAILY #2 tablet 06/01/17 Tablets -] Finasteride [Proscar -] 5 mg PO DAILY #30 tablet 06/01/17 Guaifenesin [Mucinex -] 1,200 mg PO BID #60 tablet.er 06/01/17 Labetalol HCl [Normodyne -] 100 mg PO BID #60 tablet 06/01/17 Magnesium Hydrox 2400MG/30Ml [Milk 30 ml PO DAILY PRN #1 cup 06/01/17 of Magnesia -] Vitamins (Sjr) - 1 tab PO DAILY #30 tablet 06/01/17 Sennosides/Docusate Sodium 1 tablet PO BID tablet 06/01/17 [Pericolace -] Tamsulosin HCl [Flomax -] 0.8 mg PO DAILY@0830 #60 cap.er.24h 06/01/17 Thiamine HCl [Vitamin B1 -] 100 mg PO HS #30 tablet 06/01/17 ASSESSMENT AND PLAN: Patient is a 67 y/o gentleman with h/o HTN, partial colectomy, Bipolar HL, and schizophrenia who presented with AMS and slurred speech. # POD #2 s/p TURP procedure, s/p CBI ,clearing up the drainage. # RADHA: resolved renal US with b/l hydro. On Flomax 0.8mcg, Finasteride added . # s/p AMS and slurred speech, due to alcohol withdrawal. back to his normal state, completed Librium protocol # LE edema improved post discontinuation of Norvasc. continue labetalol now instead of norvasc # Hx of HTN: continue meds. # Hx of Schizophrenia and bipolar cont antipsychotics .F/u with psych as an outpt DVT Px: Heparin is on hold Visit type - Emergency Visit Emergency Visit: Yes ED Registration Date: 05/28/17 Care time: The patient presented to the Emergency Department on the above date and was hospitalized for further evaluation of their emergent condition. - New Patient This patient is new to me today: No - Critical Care Critical Care patient: No - Discharge Referral Referred to [facility] Med P.C.: No
[2017-06-05] MEDS: DEXTROSE 5%-0.45% SALINE 1,000 ML IV SCH (21:38)
[2017-06-05] MEDS: THIAMINE HCL 100 MG TABLET (FP) PO SCH (21:40)
[2017-06-05] MEDS: ROSUVASTATIN CA 10 MG TABLET (FP) PO SCH (21:41)
[2017-06-05] MEDS: chlorproMAZINE HCL 100 MG TABLET PO SCH (21:42)
[2017-06-06] MEDS: TAMSULOSIN HCL 0.4 MG CAP.ER.24H (FP) PO SCH (08:59)
--- NOTE | 2017-06-06 09:24 | PN ---
S Progress Note (SOAP) Subjective: no complaints, able to urinate 25cc today s/p turp, no withdrawal sx noted Objective: 06/06/17 09:22 ambulating without assistance, a and o x3, no signs of withdrawal , labs revivewed Vital Signs - 24 hr 06/05/17 06/05/17 06/05/17 10:00 17:11 21:00 Temperature 98.2 F 98.1 F 98.3 F Pulse Rate 90 83 91 H Respiratory 18 20 20 Rate Blood Pressure 137/78 139/80 153/73 06/06/17 06/06/17 01:00 07:52 Temperature 98.2 F 98.4 F Pulse Rate 85 96 H Respiratory 18 18 Rate Blood Pressure 151/87 136/89 Assessment: 06/06/17 09:23 alcohol dependence - completed detox, medically stable, if able to urinate may be trasnferred to inpatient rehab if bed available to day. or schedule intensive outpatient treatment for new focus as aftercare.
[2017-06-06] MEDS ORDERED: PT OWN MED DRAWER 7, Y5N ONE (11:08)
[2017-06-06] MEDS: FINASTERIDE 5 MG TABLET (FP) PO SCH (11:11)
[2017-06-06] MEDS: LABETALOL HCL 100 MG TABLET (FP) PO SCH (11:11)
[2017-06-06] MEDS: SENNOSIDES/DOCUSATE COMBO (SENNA PLUS) TABLET (UD) PO SCH (11:11)
[2017-06-06] MEDS: ASPIRIN COATED 81 MG TABLET.EC PO SCH (11:11)
[2017-06-06] MEDS: PERPHENAZINE 4 MG TABLET PO SCH (11:12)
[2017-06-06] MEDS: PRENATAL VITAMINS W/ FOLIC ACID TABLET (FP) PO SCH (11:12)
[2017-06-06] MEDS: BENZTROPINE MESYLATE 1 MG TABLET (FP) PO SCH (11:13)
[2017-06-06 13:53] VITALS: BP 126/85; PULSE 84; TEMP 98.8
--- NOTE | 2017-06-06 14:42 | DS ---
Physical Exam: SUBJECTIVE: Patient seen and examined at bedside. No complaint. Per nurse, patient has been able to spontaneously urinate on his own since angulo was d/c this morning. OBJECTIVE: Vital Signs Period Temp Pulse Resp BP Sys/Jones Pulse Ox Last 24 Hr 98.1 F-98.8 F 83-96 18-20 126-153/73-89 PHYSICAL EXAM General : AAOx3 , in NAD Head: NC/AT , Eyes: EOMI, sclera anicteric, conjuctive clear ENT: moist mucous membrane. Lungs : CTA B/L Heart : NSR, S1, S2 , No MRG Abdomen : Soft, NT, ND , + BS 4 q Legs : No edema , +2 pulse , Skin: warm , dry , no peripheral changes psych: normal mood and effect. LABS CBCD WBC 9.7 K/mm3 (4.0-10.0) 06/04/17 06:00 RBC 3.75 M/mm3 (4.00-5.60) L 06/04/17 06:00 Hgb 11.2 GM/dL (11.7-16.9) L D 06/04/17 06:00 Hct 33.8 % (35.4-49) L 06/04/17 06:00 MCV 90.1 fl (80-96) 06/04/17 06:00 MCHC 33.3 g/dl (32.0-35.9) 06/04/17 06:00 RDW 12.6 % (11.9-15.9) 06/04/17 06:00 Plt Count 259 K/MM3 (134-434) 06/04/17 06:00 MPV 7.2 fl (7.5-11.1) L 06/04/17 06:00 CMP Sodium 141 mmol/L (136-145) 06/04/17 06:00 Potassium 3.7 mmol/L (3.5-5.1) 06/04/17 06:00 Chloride 106 mmol/L (98-107) 06/04/17 06:00 Carbon Dioxide 25 mmol/L (21-32) 06/04/17 06:00 Anion Gap 10 (8-16) 06/04/17 06:00 BUN 9 mg/dL (7-18) 06/04/17 06:00 Creatinine 0.9 mg/dL (0.7-1.3) 06/04/17 06:00 Creat Clearance w eGFR > 60 (>60) 06/04/17 06:00 Calcium 7.7 mg/dL (8.5-10.1) L 06/04/17 06:00 Total Bilirubin 0.2 mg/dL (0.2-1.0) D 06/04/17 06:00 AST 26 U/L (15-37) D 06/04/17 06:00 ALT 44 U/L (12-78) D 06/04/17 06:00 Alkaline Phosphatase 104 U/L (45-117) 06/04/17 06:00 Total Protein 6.3 g/dl (6.4-8.2) L 06/04/17 06:00 Albumin 2.7 g/dl (3.4-5.0) L 06/04/17 06:00 Imaging: CXR: No acute pathology Head CT: No acute ICH, mass effect, or hydrocephalus. No evidence of acute transcortical infarction at this time. EKG: Sinus rhythm w/PACs @ 96 bpm. QTc 475 ms HOSPITAL COURSE: Date of Admission:05/28/17 67 y/o M w/PMH of paranoid schizophrenia, insomnia, depression, anxiety, htn, hld presents to the ER for slurred speech as per pt's sister. Stroke workup was negative. His mental status change was likely due to alcohol withdrawal. He completed librium protocol and has been on PO folic acid and thiamine. He's advised to refrain from drinking. He also sustained acute kidney injury secondary to obstructive nephropathy. Angulo catheter was inserted but he failed spontaneous voiding trial. He's started on flomax and finasteride and underwent TURP procedure by urology. Today, after angulo was discontinued, patient has been able to void spontaneously. Patient was also found to have LE edema for which we switched his norvasc to labetalol. He's scheduled to follow up with Dr. Wallace and primary physician within a week. Date of Discharge: 06/06/17 <Corey Verma - Last Filed: 06/06/17 14:55> Physical Exam: SUBJECTIVE: Patient seen and examined OBJECTIVE: Vital Signs Period Temp Pulse Resp BP Sys/Jones Pulse Ox Last 24 Hr 98 F-98.8 F 83-96 18-20 126-153/73-89 PHYSICAL EXAM GENERAL: The patient is awake, alert, and fully oriented, in no acute distress. HEAD: Normal with no signs of trauma. EYES: PERRL, extraocular movements intact, sclera anicteric, conjunctiva clear. ENT: Ears normal, nares patent, oropharynx clear without exudates, moist mucous membranes. NECK: Trachea midline, full range of motion, supple. LUNGS: Breath sounds equal, clear to auscultation bilaterally, no wheezes, no crackles, no accessory muscle use. HEART: Regular rate and rhythm, S1, S2 without murmur, rub or gallop. ABDOMEN: Soft, nontender, nondistended, normoactive bowel sounds, no guarding, no rebound, no hepatosplenomegaly, no masses. EXTREMITIES: 2+ pulses, warm, well-perfused, no edema. NEUROLOGICAL: Cranial nerves II through XII grossly intact. Normal speech, gait not observed. PSYCH: Normal mood, normal affect. SKIN: Warm, dry, normal turgor, no rashes or lesions noted. LABS HOSPITAL COURSE: Date of Admission:05/28/17 Date of Discharge: 06/06/17 Minutes to complete discharge: 40 <Bhargav Mckinley - Last Filed: 06/06/17 19:44> Discharge Summary Reason For Visit: ALCOHOLIC ENCEPHALOPATHY Current Active Problems Anemia (Chronic) Hypothyroidism (Chronic) Malnutrition (Chronic) Urinary retention due to benign prostatic hyperplasia (Chronic) - Home Medications Comprehensive Discharge Medication List: Ambulatory Orders Amitriptyline HCl [Elavil -] 100 mg PO HS 05/26/17 Benztropine Mesylate [Cogentin -] 1 mg PO BID 05/26/17 Chlorpromazine [Thorazine -] 100 mg PO HS 05/26/17 Clonazepam 1 mg PO HS 05/26/17 Perphenazine 8 mg PO DAILY 05/26/17 Rosuvastatin Calcium [Crestor] 10 mg PO DAILY 05/26/17 Triazolam 0.25 mg PO HS 05/26/17 Acetaminophen [Tylenol .Regular Strength -] 650 mg PO Q6H PRN tablet 06/01/17 Aspirin Coated [Ecotrin -] 81 mg PO DAILY #30 tablet.ec 06/01/17 Finasteride [Proscar -] 5 mg PO DAILY #30 tablet 06/01/17 Guaifenesin [Mucinex -] 1,200 mg PO BID #60 tablet.er 06/01/17 Labetalol HCl [Normodyne -] 100 mg PO BID #60 tablet 06/01/17 Magnesium Hydrox 2400MG/30Ml [Milk of Magnesia -] 30 ml PO DAILY PRN #1 cup Vitamins (Sjr) - 1 tab PO DAILY #30 tablet 06/01/17 Sennosides/Docusate Sodium [Pericolace -] 1 tablet PO BID tablet 06/01/17 Tamsulosin HCl [Flomax -] 0.8 mg PO DAILY@0830 #60 cap.er.24h 06/01/17 Thiamine HCl [Vitamin B1 -] 100 mg PO HS #30 tablet 06/01/17 <Corey Verma - Last Filed: 06/06/17 14:55> - Home Medications Comprehensive Discharge Medication List: Ambulatory Orders Amitriptyline HCl [Elavil -] 100 mg PO HS 05/26/17 Benztropine Mesylate [Cogentin -] 1 mg PO BID 05/26/17 Chlorpromazine [Thorazine -] 100 mg PO HS 05/26/17 Clonazepam 1 mg PO HS 05/26/17 Perphenazine 8 mg PO DAILY 05/26/17 Rosuvastatin Calcium [Crestor] 10 mg PO DAILY 05/26/17 Triazolam 0.25 mg PO HS 05/26/17 Acetaminophen [Tylenol .Regular Strength -] 650 mg PO Q6H PRN tablet 06/01/17 Aspirin Coated [Ecotrin -] 81 mg PO DAILY #30 tablet.ec 06/01/17 Finasteride [Proscar -] 5 mg PO DAILY #30 tablet 06/01/17 Guaifenesin [Mucinex -] 1,200 mg PO BID #60 tablet.er 06/01/17 Labetalol HCl [Normodyne -] 100 mg PO BID #60 tablet 06/01/17 Magnesium Hydrox 2400MG/30Ml [Milk of Magnesia -] 30 ml PO DAILY PRN #1 cup Vitamins (Sjr) - 1 tab PO DAILY #30 tablet 06/01/17 Sennosides/Docusate Sodium [Pericolace -] 1 tablet PO BID tablet 06/01/17 Tamsulosin HCl [Flomax -] 0.8 mg PO DAILY@0830 #60 cap.er.24h 06/01/17 Thiamine HCl [Vitamin B1 -] 100 mg PO HS #30 tablet 06/01/17 <Bhargav Mckinley - Last Filed: 06/06/17 19:44> Condition: Stable - Instructions Diet, Activity, Other Instructions: You were admitted to the hospital due to confusion secondary to alcohol withdrawal, you were treated with Librium and improved . you were also found to have urinary retention secondary to prostate enlargement and urinary catheter were placed to help you void to avoid any kidney damage. You then underwent urologic procedure to decrease the size of your prostate. Now you are able to urinate and stable to be discharged home. Please follow with the urologist within one week You blood pressure medicine has been changed: Stop using Norvasc and start using Labetolol 100 mg twice a day. Please follow up with your primary care physician within one week Dr Gomez ( Himanshu Soto MD On Tuesday after 12 ) if you develop fever, chills, nausea , vomiting or any urinary symptoms or blood in urine call 911 or come back to emergency room as soon as possible. Referrals: Lemuel Gomez MD [Staff Physician] - 1 Week Kasi Wallace MD [Staff Physician] - 1 Week Disposition: HOME This patient is new to me today: No Emergency Visit: No Critical Care patient: No - Discharge Referral Referred to [facility] Med [facility].C[facility] No <Corey Verma - Last Filed: 06/06/17 14:55>
== END 2017-06-06 15:07 | disposition home or self-care (01) | DRG 988 ==
LOC: JER 12:20 → JERBED 17:02 → J8W 05-27 15:32 → OBSVTOIN 05-28 11:36 → J8W 06-02 15:42
PROVIDERS: ADMIT Internal Medicine; ATTEND Internal Medicine
PROC: 0VT08ZZ Resection of Prostate, Via Natural or Artificial Opening Endoscopic (ICD-10-PCS; principal; 2017-06-03 14:00)
DX: G31.2 Degeneration of nervous system due to alcohol (principal); F10.239 Alcohol dependence with withdrawal, unspecified; N17.9 Acute kidney failure, unspecified; E46 Unspecified protein-calorie malnutrition; N13.30 Unspecified hydronephrosis; F20.0 Paranoid schizophrenia; D64.9 Anemia, unspecified; E03.9 Hypothyroidism, unspecified; N40.1 Benign prostatic hyperplasia with lower urinary tract symptoms; Z68.34 Body mass index [BMI] 34.0-34.9, adult; E87.6 Hypokalemia; E88.09 Other disorders of plasma-protein metabolism, not elsewhere classified; I10 Essential (primary) hypertension; G47.00 Insomnia, unspecified; F32.9 Major depressive disorder, single episode, unspecified; E78.5 Hyperlipidemia, unspecified; K59.00 Constipation, unspecified; R41.82 Altered mental status, unspecified; R60.9 Edema, unspecified; R31.0 Gross hematuria
CPT/HCPCS: 36415; 70450-TC; 70551-TC; 71045-TC; 74176-TC; 76775-TC; 80048; 80053; 80061; 80307; 81003; 81015; 82040; 82436; 82550; 82553; 82607; 83036; 83721; 83735; 83880; 84133; 84153; 84300; 84443; 84484; 85025; 85027; 85610; 87086; 87420; 87804; 93005; 93010; 93306-TC; 94760; 97116-GP; 97161-GP; 99285-25; G0378; G0480; J1644

== ENCOUNTER 2019-03-19 12:53 | Inpatient (IN) | payer OTHER, BC ==
[2019-03-19 13:21] VITALS: BMI 32.3
--- NOTE | 2019-03-19 13:39 | PDOC ---
History of Present Illness - General Chief Complaint: Blood Pressure Problem Stated Complaint: LOW BLOOD PRESSURE Time Seen by Provider: 03/19/19 13:10 History Source: Patient, Family Exam Limitations: Other (unreliable historian ) - History of Present Illness Initial Comments: 03/22/19 05:58 HPI: 68M PMH Schizophrenia, HTN BIBEMS after falling at home. Daughter came to visit , heard a thud when she knocked and entered the home. Found pt on the floor w/ + LOC w/o limb shaking. Unknown head strike. Pt unresponsive for a few minutes. Was assisted by daughter to couch where he fell again but caught by daughter w/ o LOC. Pt endorses drinking 1/2 cup vodka to try to sleep. Denies f/c, cp/ palpitation/sob, numbness/tingling/weakness. Pt has been eating regular diet and states he is drinking plenty of water. No n/v/d or po intolerance. Pt able to participate in history but does not remember inciting event. Pt last seen by family 03/15, noticed to be well. EMS found SBP to be in 80s. PCP: Dr. Ward Past History - Past Medical History Allergies/Adverse Reactions: Allergies Allergy/AdvReac Type Severity Reaction Status Date / Time No Known Allergies Allergy Verified 05/26/17 12:56 Home Medications: Ambulatory Orders Amitriptyline HCl [Elavil -] 50 mg PO HS 05/26/17 Benztropine Mesylate [Cogentin -] 1 mg PO BID 05/26/17 Clonazepam 1 mg PO HS 05/26/17 Perphenazine 8 mg PO DAILY 05/26/17 Rosuvastatin Calcium [Crestor] 10 mg PO DAILY 05/26/17 Triazolam 0.25 mg PO HS 05/26/17 Aspirin Coated [Ecotrin -] 81 mg PO DAILY #30 tablet.ec 06/01/17 Finasteride [Proscar -] 5 mg PO DAILY #30 tablet 06/01/17 Guaifenesin [Mucinex -] 1,200 mg PO BID #60 tablet.er 06/01/17 Labetalol HCl [Normodyne -] 100 mg PO BID #60 tablet 06/01/17 Sennosides/Docusate Sodium [Pericolace -] 1 tablet PO BID tablet 06/01/17 Tamsulosin HCl [Flomax -] 0.8 mg PO DAILY@0830 #60 cap.er.24h 06/01/17 Thiamine HCl [Vitamin B1 -] 100 mg PO HS #30 tablet 06/01/17 Acetaminophen W/ Codeine #3 [Tylenol # 3 -] 1 tab PO Q6H PRN 03/19/19 Cariprazine HCl [Vraylar] 1.5 mg PO AM 03/19/19 Citalopram Hydrobromide [Citalopram HBr] 10 mg PO AM 03/19/19 COPD: No Disorders: (BPH) HTN: Yes Psychiatric Problems: Yes - Immunization History Immunization Up to Date: Yes - Psycho Social/Smoking Cessation Hx Smoking History: Unknown if ever smoked Have you smoked in the past 12 months: No Hx Alcohol Use: Yes (last night drinking) Drug/Substance Use Hx: No Substance Use Type: None Hx Substance Use Treatment: Yes (?in [place] many yeas ago?) Review of Systems - Review of Systems Able to Perform ROS?: Yes Comments:: 03/22/19 05:58 ROS: CONSTITUTIONAL: Denies F / C HEENT: Denies headache, lightheadedness, dizziness, changes in vision / hearing , diplopia, blurry vision RESP: Denies SOB CARD: Denies chest pain, palpitations GI: Denies N / V / D, abdominal pain, inability to tolerate PO : Denies dysuria, frequency SKIN: Denies rashes NEURO: Denies numbness, tingling, weakness Is the patient limited Citizen Of [place] proficient: No *Physical Exam - Vital Signs Last Vital Signs Temp Pulse Resp BP Pulse Ox 98 F 72 18 92/55 L 0 L 03/19/19 13:00 03/19/19 13:00 03/19/19 13:00 03/19/19 13:00 03/19/19 13:00 - Physical Exam Comments: 03/22/19 05:58 PE: GEN: NAD HEENT: NC/AT, no obvious deformities, no bonilla sign or raccoon eyes. CN II-XII intact, EOMI, PERRLA. +facial asymmetry; right sided lip droop. Moist mucous membranes. Normal voice. Supple neck w/ FROM. No midline c-spine TTP. BACK: No obvious deformities, no step offs, no midline TTP. No signs of trauma. No pelvic instability. CV: S1/S2, RRR, no m/r/g LUNG: CTAB, no wheezes, crackles, rales, rhonchi. GI: soft, ndnt, +BS, no guarding, no rebound. No masses. Neg CVAT b/l. EXTREMITIES: No LE edema. No obvious deformities of all extremities. No bony tenderness of the arms or legs. SKIN: warm, dry, normal turgor NEURO: 5/5 UE and LE strength b/l. Symmetric sensation. ED Treatment Course - LABORATORY CBC & Chemistry Diagram: 03/19/19 15:00 03/19/19 15:00 - ADDITIONAL ORDERS Additional order review: Laboratory Results 03/19/19 13:09 POC Glucometer 99 03/19/19 13:09 POC Glucometer 99 Medical Decision Making - Medical Decision Making 03/19/19 13:33 MDM: 68M BIBEMS after fall w/ + LOC. EMS noted hypotension. Facial droop on right side. - CBC, CMP, Cardiac, Coag, etoh - UA - CT head - CXR - EKG - Banana bag - admit EKG 03/19/19 13:06 HR 71 NM 198 QRS 92 QTc 469 NSR 03/19/19 14:25 POC 99 03/19/19 18:10 Patient admitted to Stroke unit Discharge - Discharge Information Problems reviewed: Yes Clinical Impression/Diagnosis: Facial droop Syncope Qualifiers: Syncope type: unspecified Qualified Code(s): R55 - Syncope and collapse Condition: Fair Disposition: ELOPED - Follow up/Referral - Patient Discharge Instructions - Post Discharge Activity
[2019-03-19] MEDS ORDERED: FOLIC ACID INJECTION - 1 MG, THIAMINE HCL 100 MG, MULTIVIT INJECTION ADULT 10 ML in SOD... IVPB ONE (13:44)
[2019-03-19 15:37] LABS: PH,URINE 6.5 (5.0-8.0); URINE APPEARANCE CLEAR; URINE BILIRUBIN NEGATIVE (NEGATIVE); URINE COLOR YELLOW; URINE GLUCOSE (UA) NEGATIVE (NEGATIVE); URINE KETONE NEGATIVE (NEGATIVE); URINE LEUK ESTERASE NEGATIVE (NEGATIVE); URINE NITRITE NEGATIVE (NEGATIVE); URINE PROTEIN NEGATIVE (NEGATIVE); URINE UROBILINOGEN 0.2 mg/dL (0.2-1.0)
[2019-03-19 15:37] LABS: BASO % 0.6 % (0-2.0); EOS % 1.4 % (0-4.5); HEMATOCRIT 40.9 % (35.4-49); HEMOGLOBIN 13.5 GM/dL (11.7-16.9); MCH 30.4 pg (25.7-33.7); MCHC 33.1 g/dl (32.0-35.9); MEAN CELL VOLUME 91.8 fl (80-96); MEAN PLT VOLUME 8.1 fl (7.5-11.1); PLATELET COUNT 196 K/MM3 (134-434); RBC 4.45 M/mm3 (4.00-5.60); RDW 14.2 % (11.9-15.9); WHITE BLOOD COUNT 7.3 K/mm3 (4.0-10.0)
--- NOTE | 2019-03-19 15:40 | PDOC ---
Attending Attestation - Resident Resident Name: Petar Carlson - ED Attending Attestation I have performed the following: I have examined & evaluated the patient, The case was reviewed & discussed with the resident, I agree w/resident's findings & plan, Exceptions are as noted - HPI HPI: 03/19/19 15:34 68yo male with hx of schizophrenia, htn, etoh abuse presents for eval of hypotension and witness syncope by his sister. Last seen normal was and tuesday when he was staying with his nephew. His sister went to check on him today and she hear him fall and had loc. Pt bp was low per the medics. Pt with a new L facial droop - unsure onset. Pt admits to drinking a glass of etoh ( vodka) today. Pt denies nunes. Denies cp/sob. Denies abd pain. No n/v/d. Pt with slurred speech and appears intoxicated. Pt states he did take all his medications today, denies eating today. Fingerstick was 99 upon arrival in the ER. - Physicial Exam PE: 03/19/19 15:36 Gen: awake, alert, oriented to person/place. Disoriented to time. HEENT: EOMI, L facial droop neck: supple, no midline ttp, no stepoffs or deformities heart: +s1s2 reg lungs: cta b/l abd: soft, nt/nd +bs ext: no c/c/e neuro: L facial droop, muscle strength 5/5 UE and LE, sensation intact, slurred speech - Medical Decision Making 03/19/19 15:37 a/p: 68yo male with 2 syncopal episodes today -pt intoxicated, pt arrives hypotensive -did take his meds today -hx of alcohol encephalopathy -pt with new L facial droop - last seen normal was Tuesday -will send for head ct, labs, ekg, cxr -will monitor and reassess -pt will need admission 03/19/19 15:42 cxr clear ua neg 03/19/19 16:31 no elevated wbc hgb stable mag 2.7 03/19/19 16:39 trop neg 03/19/19 17:[address] Smith who accepts pt to service call placed to Dr. Whitney for L facial droop 03/19/19 18:[address] Whitney who will see patient in consult Discharge - Discharge Information Problems reviewed: Yes Clinical Impression/Diagnosis: Facial droop, Syncope Condition: Fair - Admission Yes - Follow up/Referral - Patient Discharge Instructions - Post Discharge Activity Heart Score/ECG Review - ECG Intrepretation Comment:: 03/19/19 15:40 sinus at 71, nl axis, nl interval, no acute st/t wave findings
[2019-03-19 15:50] LABS: MAGNESIUM 2.7 mg/dL (1.8-2.4)
[2019-03-19 15:55] LABS: INR 0.96 (0.83-1.09); PROTHROMBIN TIME (PATIENT) 11.3 SEC (9.7-13.0)
[2019-03-19 16:56] LABS: ALBUMIN 3.5 g/dl (3.4-5.0); BILIRUBIN,TOTAL 0.3 mg/dL (0.2-1); BLOOD UREA NITROGEN 26.4 mg/dL (7-18); CALCIUM 8.5 mg/dL (8.5-10.1); CREATININE 1.8 mg/dL (0.55-1.3); N-TERMINAL BNP 44.3 pg/ml (5-125); POTASSIUM 4.1 mmol/L (3.5-5.1); TOT PROT 6.9 g/dl (6.4-8.2)
[2019-03-19] MEDS ORDERED: SODIUM CHLORIDE 0.9% 1000 ML INFUS.BAG IV ONE (17:34)
[2019-03-19] MEDS ORDERED: clonazePAM 0.5 MG TABLET PO ONE (19:01)
--- NOTE | 2019-03-19 19:44 | CON.NEURO ---
Consult Consult Specialty:: NEUROLOGY-DAYSI ROJAS - History of Present Illness History of Present Illness: 68yo male with hx of schizophrenia, htn, etoh abuse presents for eval of hypotension and witness syncope by his sister. Last seen normal was and tuesday when he was staying with his nephew. His sister went to check on him today and she hear him fall and had loc. Pt bp was low per the medics. Pt with a new L facial droop - unsure onset. Pt admits to drinking a glass of etoh ( vodka) today. Pt denies nunes. Denies cp/sob. Denies abd pain. No n/v/d. Pt with slurred speech and appears intoxicated. Pt states he did take all his medications today, denies eating today. Fingerstick was 99 upon arrival in the ER. Denies he had a facial droop, denies dysarthria. - Alcohol/Substance Use Hx Alcohol Use: Yes (last night drinking) - Smoking History Smoking history: Unknown if ever smoked Have you smoked in the past 12 months: No - Social History Usual Living Arrangement: Alone Home Medications - Allergies Allergies/Adverse Reactions: Allergies Allergy/AdvReac Type Severity Reaction Status Date / Time No Known Allergies Allergy Verified 05/26/17 12:56 - Home Medications Home Medications: Ambulatory Orders Amitriptyline HCl [Elavil -] 50 mg PO HS 05/26/17 Benztropine Mesylate [Cogentin -] 1 mg PO BID 05/26/17 Clonazepam 1 mg PO HS 05/26/17 Perphenazine 8 mg PO DAILY 05/26/17 Rosuvastatin Calcium [Crestor] 10 mg PO DAILY 05/26/17 Triazolam 0.25 mg PO HS 05/26/17 Aspirin Coated [Ecotrin -] 81 mg PO DAILY #30 tablet.ec 06/01/17 Finasteride [Proscar -] 5 mg PO DAILY #30 tablet 06/01/17 Guaifenesin [Mucinex -] 1,200 mg PO BID #60 tablet.er 06/01/17 Labetalol HCl [Normodyne -] 100 mg PO BID #60 tablet 06/01/17 Sennosides/Docusate Sodium [Pericolace -] 1 tablet PO BID tablet 06/01/17 Tamsulosin HCl [Flomax -] 0.8 mg PO DAILY@0830 #60 cap.er.24h 06/01/17 Thiamine HCl [Vitamin B1 -] 100 mg PO HS #30 tablet 06/01/17 Acetaminophen W/ Codeine #3 [Tylenol # 3 -] 1 tab PO Q6H PRN 03/19/19 Cariprazine HCl [Vraylar] 1.5 mg PO AM 03/19/19 Citalopram Hydrobromide [Citalopram HBr] 10 mg PO AM 03/19/19 Physical Exam-Neuro Vital Signs: Vital Signs Temperature 97.7 F 03/19/19 13:11 Pulse Rate 97 H 03/19/19 13:11 Respiratory Rate 22 H 03/19/19 13:11 Blood Pressure 119/88 03/19/19 13:11 O2 Sat by Pulse Oximetry (%) 97 03/19/19 13:11 Labs: CBC, BMP 03/19/19 15:00 03/19/19 15:00 INR, PTT INR 0.96 (0.83-1.09) 03/19/19 15:00 - Neuro Exam Level Of Consciousness: Yes: Alert, Oriented to Person, Oriented to Place, Oriented to Time Eyes: Yes: DIXIE Speech: WNL Mini Mental Exam: nl Cranial Nerves II-XII Intact: No (very slight diminished left nlf?? physiological) DTR's: 0 Left Achilles, 0 Right Achilles, 2+ Left Bicep, 2+ Right Bicep, 2+ Left Tricep, 2+ Right Tricep, 2+ Left Brachioradialis, 2+ Right Brachioradialis Motor Strength: 5/5: Left Arm, Right Arm, Left Leg, Right Leg Gait: Normal Assessment/Plan ?? left cent. facial deficit in setting of syncope, may have been a subcort. lacunar inf. 2/2 hypotension. Would obtain MRI brain, further management thereafter. ASA 81mg daily. Thank you, Micaela Whitney MD
[2019-03-19] MEDS ORDERED: AMITRIPTYLINE HCL 25 MG TABLET (FP) PO ONE (20:00)
--- NOTE | 2019-03-19 20:19 | HP ---
Admitting History and Physical - Primary Care Physician PCP: Yumiko Smith - Admission History of Present Illness: 68yo male with hx of schizophrenia, htn, etoh abuse presents for eval of hypotension and witness syncope by his sister. Last seen normal was and tuesday when he was staying with his nephew. His sister went to check on him today and she hear him fall and had loc. Pt bp was low per the medics. Pt with a new L facial droop - unsure onset. Pt admits to drinking a glass of etoh ( vodka) today. Pt denies nunes. Denies cp/sob. Denies abd pain. No n/v/d. Pt with slurred speech and appears intoxicated. Pt states he did take all his medications today, denies eating today. Fingerstick was 99 upon arrival in the ER. Denies he had a facial droop, denies dysarthria. - Past Medical History Cardiovascular: Yes: HTN Psych: Yes: Schizophrenia - Smoking History Smoking history: Unknown if ever smoked Have you smoked in the past 12 months: No - Alcohol/Substance Use Hx Alcohol Use: Yes (last night drinking) Home Medications - Allergies Allergies/Adverse Reactions: Allergies Allergy/AdvReac Type Severity Reaction Status Date / Time No Known Allergies Allergy Verified 05/26/17 12:56 - Home Medications Home Medications: Ambulatory Orders Amitriptyline HCl [Elavil -] 50 mg PO HS 05/26/17 Benztropine Mesylate [Cogentin -] 1 mg PO BID 05/26/17 Clonazepam 1 mg PO HS 05/26/17 Perphenazine 8 mg PO DAILY 05/26/17 Rosuvastatin Calcium [Crestor] 10 mg PO DAILY 05/26/17 Triazolam 0.25 mg PO HS 05/26/17 Aspirin Coated [Ecotrin -] 81 mg PO DAILY #30 tablet.ec 06/01/17 Finasteride [Proscar -] 5 mg PO DAILY #30 tablet 06/01/17 Guaifenesin [Mucinex -] 1,200 mg PO BID #60 tablet.er 06/01/17 Labetalol HCl [Normodyne -] 100 mg PO BID #60 tablet 06/01/17 Sennosides/Docusate Sodium [Pericolace -] 1 tablet PO BID tablet 06/01/17 Tamsulosin HCl [Flomax -] 0.8 mg PO DAILY@0830 #60 cap.er.24h 06/01/17 Thiamine HCl [Vitamin B1 -] 100 mg PO HS #30 tablet 06/01/17 Acetaminophen W/ Codeine #3 [Tylenol # 3 -] 1 tab PO Q6H PRN 03/19/19 Cariprazine HCl [Vraylar] 1.5 mg PO AM 03/19/19 Citalopram Hydrobromide [Citalopram HBr] 10 mg PO AM 03/19/19 Physical Examination Vital Signs: Vital Signs Temperature 97.7 F 03/19/19 13:11 Pulse Rate 97 H 03/19/19 13:11 Respiratory Rate 22 H 03/19/19 13:11 Blood Pressure 119/88 03/19/19 13:11 O2 Sat by Pulse Oximetry (%) 97 03/19/19 13:11 HENT: Yes: Other (facial droop) Cardiovascular: Yes: Regular Rate and Rhythm Respiratory: Yes: CTA Bilaterally Gastrointestinal: Yes: Normal Bowel Sounds Extremities: Yes: WNL Edema: No Neurological: Yes: Alert Labs: CBC, BMP 03/19/19 15:00 03/19/19 15:00 Imaging - Results X-ray: Report Reviewed Cat Scan: Report Reviewed Problem List - Problems (1) HTN (hypertension) Assessment/Plan: ON MEDS STABLE Code(s): I10 - ESSENTIAL (PRIMARY) HYPERTENSION (2) Facial droop Assessment/Plan: DOING WELL Code(s): R29.810 - FACIAL WEAKNESS (3) Syncope Code(s): R55 - SYNCOPE AND COLLAPSE (4) Hypothyroidism Code(s): E03.9 - HYPOTHYROIDISM, UNSPECIFIED (5) Alcohol dependence with uncomplicated withdrawal Code(s): F10.230 - ALCOHOL DEPENDENCE WITH WITHDRAWAL, UNCOMPLICATED Assessment/Plan Laboratory Tests 03/19/19 03/19/19 03/19/19 13:09 15:00 15:00 WBC RBC Hgb Hct MCV MCH MCHC RDW Plt Count MPV Absolute Neuts (auto) Neutrophils % Lymphocytes % Monocytes % Eosinophils % Basophils % Nucleated RBC % PT with INR INR PTT (Actin FS) 31.6 Sodium Potassium Chloride Carbon Dioxide Anion Gap BUN Creatinine Est GFR (CKD-EPI)AfAm Est GFR (CKD-EPI)NonAf POC Glucometer 99 Random Glucose Lactic Acid Calcium Magnesium Total Bilirubin AST ALT Alkaline Phosphatase Creatine Kinase 180 Creatine Kinase Index 0.8 CK-MB (CK-2) 1.5 Troponin I < 0.02 B-Natriuretic Peptide Total Protein Albumin TSH Urine Color Urine Appearance Urine pH Ur Specific [place] Urine Protein Urine Glucose (UA) Urine Ketones Urine Blood Urine Nitrite Urine Bilirubin Urine Urobilinogen Ur Leukocyte Esterase Alcohol, Quantitative 96.6 H Blood Type Antibody Screen 03/19/19 03/19/19 03/19/19 15:00 15:00 15:00 WBC 7.3 RBC 4.45 Hgb 13.5 Hct 40.9 D MCV 91.8 MCH 30.4 MCHC 33.1 RDW 14.2 D Plt Count 196 D MPV 8.1 D Absolute Neuts (auto) 4.5 Neutrophils % 62.0 Lymphocytes % 26.0 D Monocytes % 10.0 Eosinophils % 1.4 Basophils % 0.6 Nucleated RBC % 0 PT with INR INR PTT (Actin FS) Sodium Potassium Chloride Carbon Dioxide Anion Gap BUN Creatinine Est GFR (CKD-EPI)AfAm Est GFR (CKD-EPI)NonAf POC Glucometer Random Glucose Lactic Acid 1.8 Calcium Magnesium Total Bilirubin AST ALT Alkaline Phosphatase Creatine Kinase Creatine Kinase Index CK-MB (CK-2) Troponin I B-Natriuretic Peptide Total Protein Albumin TSH Urine Color Urine Appearance Urine pH Ur Specific [place] Urine Protein Urine Glucose (UA) Urine Ketones Urine Blood Urine Nitrite Urine Bilirubin Urine Urobilinogen Ur Leukocyte Esterase Alcohol, Quantitative Blood Type A POSITIVE Antibody Screen Negative 03/19/19 03/19/19 03/19/19 15:00 15:00 15:15 WBC RBC Hgb Hct MCV MCH MCHC RDW Plt Count MPV Absolute Neuts (auto) Neutrophils % Lymphocytes % Monocytes % Eosinophils % Basophils % Nucleated RBC % PT with INR 11.30 INR 0.96 PTT (Actin FS) Sodium 140 Potassium 4.1 Chloride 108 H Carbon Dioxide 23 Anion Gap 8 BUN 26.4 H Creatinine 1.8 H Est GFR (CKD-EPI)AfAm 43.23 Est GFR (CKD-EPI)NonAf 37.30 POC Glucometer Random Glucose 102 Lactic Acid Calcium 8.5 Magnesium 2.7 H Total Bilirubin 0.3 AST 20 ALT 29 Alkaline Phosphatase 112 Creatine Kinase Creatine Kinase Index CK-MB (CK-2) Troponin I B-Natriuretic Peptide 44.3 Total Protein 6.9 Albumin 3.5 TSH 1.74 D Urine Color Yellow Urine Appearance Clear Urine pH 6.5 Ur Specific [place] 1.008 L Urine Protein Negative Urine Glucose (UA) Negative Urine Ketones Negative Urine Blood Negative Urine Nitrite Negative Urine Bilirubin Negative Urine Urobilinogen 0.2 Ur Leukocyte Esterase Negative Alcohol, Quantitative Blood Type Antibody Screen Active Medications Generic Name Dose Route Start Last Admin Trade Name Freq PRN Reason Stop Dose Admin Folic Acid 1 mg/ Thiamine HCl 1,000 mls @ 125 mls/hr 03/19/19 13:44 03/19/19 17:45 100 mg/ Multivitamins/Minerals IVPB 03/19/19 21:43 125 mls/hr 10 ml/ Sodium Chloride ONCE ONE Administration
[2019-03-19] MEDS ORDERED: clonazePAM 0.5 MG TABLET ONE (20:52)
[2019-03-19] MEDS ORDERED: AMITRIPTYLINE HCL 25 MG TABLET (FP) ONE (20:53)
[2019-03-19 21:15] VITALS: BP 156/96; PULSE 94; TEMP 97.3
[2019-03-19] MEDS ORDERED: ROSUVASTATIN CA 10 MG TABLET (FP) PO SCH (22:00)
[2019-03-19] MEDS ORDERED: BENZTROPINE MESYLATE 1 MG TABLET (FP) PO SCH (22:00)
[2019-03-19] MEDS ORDERED: LABETALOL HCL 100 MG TABLET (FP) PO SCH (22:00)
[2019-03-19] MEDS ORDERED: AMITRIPTYLINE HCL 25 MG TABLET (FP) PO SCH (22:00)
[2019-03-19] MEDS ORDERED: AMITRIPTYLINE HCL 50 MG TABLET PO ONE (22:00)
[2019-03-19] MEDS ORDERED: THIAMINE HCL 100 MG TABLET (FP) PO SCH (22:00)
[2019-03-19] MEDS ORDERED: AMITRIPTYLINE HCL PO SCH (22:00)
[2019-03-19] MEDS ORDERED: THIAMINE HCL 100 MG TABLET (FP) ONE (23:07)
[2019-03-19] MEDS ORDERED: LABETALOL HCL 100 MG TABLET (FP) ONE (23:07)
[2019-03-20] MEDS ORDERED: CITALOPRAM HYDROBROMIDE 10 MG TABLET (FP) PO SCH (07:00)
[2019-03-20] MEDS ORDERED: TAMSULOSIN HCL 0.4 MG CAP PO SCH (08:30)
[2019-03-20] MEDS ORDERED: ASPIRIN COATED 81 MG TABLET.EC PO SCH (10:00)
[2019-03-20] MEDS ORDERED: FINASTERIDE 5 MG TABLET (FP) PO SCH (10:00)
--- NOTE | 2019-03-20 10:41 | EKG ---
Test Reason : Blood Pressure : / mmHG Vent. Rate : 071 BPM Atrial Rate : 071 BPM P-R Int : 198 ms QRS Dur : 092 ms QT Int : 432 ms P-R-T Axes : 057 -07 022 degrees QTc Int : 469 ms NORMAL SINUS RHYTHM NORMAL ECG Confirmed by MD DOM, ONEIDA ([id number]) on 03/20/2019 10:41:20 AM Referred By: Confirmed By:ONEIDA FERNANDES MD
--- NOTE | 2019-03-20 19:10 | PN ---
Progress Note, Physician - Current Medication List Current Medications: Active Medications Amitriptyline HCl (Elavil -) 50 mg PO HS [facility] Aspirin (Ecotrin -) 81 mg PO DAILY [facility] Benztropine Mesylate (Cogentin -) 1 mg PO BID [facility] Citalopram Hydrobromide (Celexa -) 10 mg PO AM [facility] Finasteride (Proscar -) 5 mg PO DAILY [facility] Labetalol HCl (Normodyne -) 100 mg PO BID [facility] Rosuvastatin Calcium (Crestor -) 10 mg PO HS [facility] Tamsulosin HCl (Flomax -) 0.8 mg PO DAILY@0830 [facility] Thiamine HCl (Vitamin B1 -) 100 mg PO HS [facility] - Objective Vital Signs: Vital Signs Temperature 97.3 F L 03/19/19 20:40 Pulse Rate 94 H 03/19/19 20:40 Respiratory Rate 18 03/19/19 20:40 Blood Pressure 156/96 03/19/19 20:40 O2 Sat by Pulse Oximetry (%) 95 03/19/19 20:40 Constitutional: Yes: No Distress HENT: Yes: Atraumatic Neck: Yes: Supple Cardiovascular: Yes: Regular Rate and Rhythm Respiratory: Yes: CTA Bilaterally Gastrointestinal: Yes: Normal Bowel Sounds Labs: CBC, BMP 03/19/19 15:00 03/19/19 15:00 INR, PTT INR 0.96 (0.83-1.09) 03/19/19 15:00 Problem List - Problems (1) HTN (hypertension) Code(s): I10 - ESSENTIAL (PRIMARY) HYPERTENSION (2) Facial droop Code(s): R29.810 - FACIAL WEAKNESS (3) Syncope Code(s): R55 - SYNCOPE AND COLLAPSE (4) Hypothyroidism Code(s): E03.9 - HYPOTHYROIDISM, UNSPECIFIED (5) Alcohol dependence with uncomplicated withdrawal Code(s): F10.230 - ALCOHOL DEPENDENCE WITH WITHDRAWAL, UNCOMPLICATED
--- NOTE | 2019-03-20 19:27 | DS ---
Physical Examination Vital Signs: Vital Signs Temperature 97.3 F L 03/19/19 20:40 Pulse Rate 94 H 03/19/19 20:40 Respiratory Rate 18 03/19/19 20:40 Blood Pressure 156/96 03/19/19 20:40 O2 Sat by Pulse Oximetry (%) 95 03/19/19 20:40 Labs: CBC, BMP 03/19/19 15:00 03/19/19 15:00 Discharge Summary Problems reviewed: Yes Reason For Visit: SYNCOPE FACIAL DROOP Current Active Problems Facial droop (Acute) HTN (hypertension) (Acute) Syncope (Acute) Condition: Fair - Instructions Referrals: Mj Whitney MD [Staff Physician] - Cathi Ward [Primary Care Provider] - Disposition: AGAINST MEDICAL ADVICE - Home Medications Comprehensive Discharge Medication List: Ambulatory Orders Amitriptyline HCl [Elavil -] 50 mg PO HS 05/26/17 Benztropine Mesylate [Cogentin -] 1 mg PO BID 05/26/17 Clonazepam 1 mg PO HS 05/26/17 Perphenazine 8 mg PO DAILY 05/26/17 Rosuvastatin Calcium [Crestor] 10 mg PO DAILY 05/26/17 Triazolam 0.25 mg PO HS 05/26/17 Aspirin Coated [Ecotrin -] 81 mg PO DAILY #30 tablet.ec 06/01/17 Finasteride [Proscar -] 5 mg PO DAILY #30 tablet 06/01/17 Guaifenesin [Mucinex -] 1,200 mg PO BID #60 tablet.er 06/01/17 Labetalol HCl [Normodyne -] 100 mg PO BID #60 tablet 06/01/17 Sennosides/Docusate Sodium [Pericolace -] 1 tablet PO BID tablet 06/01/17 Tamsulosin HCl [Flomax -] 0.8 mg PO DAILY@0830 #60 cap.er.24h 06/01/17 Thiamine HCl [Vitamin B1 -] 100 mg PO HS #30 tablet 06/01/17 Acetaminophen W/ Codeine #3 [Tylenol # 3 -] 1 tab PO Q6H PRN 03/19/19 Cariprazine HCl [Vraylar] 1.5 mg PO AM 03/19/19 Citalopram Hydrobromide [Citalopram HBr] 10 mg PO AM 03/19/19 d/w neuro can be dc follow up in office patient left AMA BEFORE DC
== END 2019-03-20 01:30 | disposition left against medical advice (07) | DRG 312 ==
LOC: JER 12:53 → JERBED 17:33
PROVIDERS: ADMIT Internal Medicine; ATTEND Internal Medicine
DX: R55 Syncope and collapse (principal); F10.230 Alcohol dependence with withdrawal, uncomplicated; I10 Essential (primary) hypertension; N40.0 Benign prostatic hyperplasia without lower urinary tract symptoms; R29.810 Facial weakness; F20.9 Schizophrenia, unspecified; I95.9 Hypotension, unspecified; E03.9 Hypothyroidism, unspecified
CPT/HCPCS: 36415; 70450-TC; 71045-TC-FY; 72125-TC; 80053; 80307; 81003; 82550; 82553; 82962; 83605; 83735; 83880; 84443; 84484; 85025; 85610; 85730; 86850; 86900; 86901; 87086; 93005; 93010; 99284-25; J7030

== ENCOUNTER 2021-07-26 04:40 | Emergency (ER) | payer OTHER, BC ==
[2021-07-26 05:06] VITALS: BMI 32.3
[2021-07-26] MEDS ORDERED: LACTULOSE 20 GM/30 ML UDC (FOR ORAL USE ONLY) PO ONE (05:38)
[2021-07-26] MEDS ORDERED: LACTULOSE 20 GM/30 ML UDC (FOR ORAL USE ONLY) ONE (05:46)
[2021-07-26 06:41] VITALS: TEMP 97.1
[2021-07-26] MEDS ORDERED: LACTATED RINGERS SOLUTION 1000 ML INFUS.BAG IV ONE (06:41)
[2021-07-26 07:29] LABS: BASO % 0.4 % (0-2.0); EOS % 0.5 % (0-4.5); HEMATOCRIT 41.8 % (35.4-49); LYMPH % 16.7 % (8-40); MCH 30.3 pg (25.7-33.7); MCHC 33.4 g/dl (32.0-35.9); MEAN CELL VOLUME 90.6 fl (80-96); MONO % 11.3 % (3.8-10.2); NEUT % 71.1 % (42.8-82.8); PLATELET COUNT 242 10^3/uL (134-434); RBC 4.62 M/mm3 (4.00-5.60); RDW 13.9 % (11.9-15.9); WHITE BLOOD COUNT 14.3 K/mm3 (4.0-10.0)
[2021-07-26 07:55] LABS: ALBUMIN 4.1 g/dl (3.4-5.0); BLOOD UREA NITROGEN 26.2 mg/dL (7-18); CALCIUM 9.3 mg/dL (8.5-10.1); MAGNESIUM 2.4 mg/dL (1.8-2.4)
[2021-07-26 07:58] LABS: CREATININE 1.5 mg/dL (0.55-1.3)
[2021-07-26 08:00] LABS: BILIRUBIN,TOTAL 0.7 mg/dL (0.2-1); TOT PROT 7.9 g/dl (6.4-8.2)
[2021-07-26 08:01] LABS: INR 0.97 (0.83-1.09); PROTHROMBIN TIME (PATIENT) 11.2 SEC (9.7-13.0)
[2021-07-26] MEDS ORDERED: SODIUM CHLORIDE 0.9% 500 ML INFUS.BAG IV ONE ×2 (08:01→09:41)
[2021-07-26 08:04] LABS: ACTIVATED PTT 28.1 SECONDS (25.2-36.5)
[2021-07-26 09:28] VITALS: BP 144/86
[2021-07-26 10:45] VITALS: PULSE 99
== END 2021-07-26 11:00 | disposition home or self-care (01) ==
LOC: JER 04:40
DX: K56.41 Fecal impaction (principal)
CPT/HCPCS: 36415; 74019-TC-FY; 80053; 83735; 85025; 85610; 85730; 93005; 93010; 99285-25

== ENCOUNTER 2024-05-09 18:35 | Inpatient (IN) | payer OTHER, BC ==
[2024-05-09 19:18] VITALS: BMI 34.1
[2024-05-09] MEDS ORDERED: guaiFENesin 600 MG TABLET.ER (FP) PO PRN (19:48)
[2024-05-09] MEDS ORDERED: BENZONATATE 200 MG CAPSULE PO PRN (19:48)
[2024-05-09] MEDS ORDERED: MAGNESIUM HYDROX 2400MG/30ML ORAL SUSPENSION 30 ML CUP PO PRN (19:48)
[2024-05-09] MEDS ORDERED: IBUPROFEN 600 MG TABLET (FP) PO PRN (19:48)
[2024-05-09] MEDS ORDERED: BENZOCAINE/MENTHOL (CHLORASEPTIC ) LOZENGE MM PRN (19:48)
[2024-05-09] MEDS ORDERED: IBUPROFEN 400 MG TABLET (FP) PO PRN (19:48)
[2024-05-09] MEDS ORDERED: ONDANSETRON *ODT* 4 MG TABLET SL PRN (19:48)
[2024-05-09] MEDS ORDERED: LOPERAMIDE HCL 2 MG CAPSULE PO PRN (19:48)
[2024-05-09] MEDS ORDERED: METHOCARBAMOL 500 MG TABLET PO PRN (19:48)
[2024-05-09] MEDS ORDERED: hydrOXYzine PAMOATE 25 MG CAPSULE (FP) PO PRN (19:48)
[2024-05-09] MEDS ORDERED: POLYETHYLENE GLYCOL (HEALTHYLAX) 3350 17 GM PACKET PO PRN (19:48)
[2024-05-09] MEDS ORDERED: MAG HYDROX/AL HYDROX/SIMETH 30 ML UNIT-DOSE CUP PO PRN (19:48)
[2024-05-09] MEDS ORDERED: DICYCLOMINE HCL 10 MG CAPSULE PO PRN (19:48)
[2024-05-09] MEDS ORDERED: NALOXONE (NARCAN) HCL 4 MG/0.1 ML SPRAY NS PRN (19:48)
[2024-05-09] MEDS ORDERED: ACETAMINOPHEN 325 MG TABLET (FP) PO PRN (19:48)
[2024-05-09] MEDS ORDERED: BISMUTH SUBSALICYLATE 524 MG/30 ML PO PRN (19:48)
[2024-05-09] MEDS: LORazepam 1 MG TABLET PO PRN (21:58)
[2024-05-09] MEDS ORDERED: AMITRIPTYLINE HCL 100 MG TABLET PO ONE (22:00)
[2024-05-09] MEDS: PERPHENAZINE 4 MG TABLET PO SCH (22:04)
[2024-05-09] MEDS: AMITRIPTYLINE HCL 25 MG TABLET PO ONE (22:04)
[2024-05-09] MEDS: LABETALOL HCL 200 MG TABLET (FP) PO SCH (22:05)
[2024-05-09] MEDS: MELATONIN 5 MG TABLETS PO SCH (22:07)
[2024-05-09] MEDS: THIAMINE 100 MG TABLET PO SCH (22:07)
[2024-05-09] MEDS: LORazepam 1 MG TABLET PO SCH (22:37)
[2024-05-10] MEDS: TAMSULOSIN HCL 0.4 MG CAP PO SCH (07:37)
[2024-05-10 08:40] VITALS: BP 147/86; PULSE 93; RESP 18; TEMP 97.6
[2024-05-10] MEDS: FINASTERIDE 5 MG TABLET (FP) PO SCH (10:03)
[2024-05-10] MEDS: ASPIRIN COATED 81 MG TABLET.EC PO SCH (10:03)
[2024-05-10] MEDS: PRENATAL VITAMINS W/ FOLIC ACID TABLET (FP) PO SCH (10:03)
[2024-05-10 10:57] LABS: HEMATOCRIT 37.6 % (35.4-49); HEMOGLOBIN 12.5 GM/dL (11.7-16.9); MCH 30.6 pg (25.7-33.7); MCHC 33.3 g/dl (32.0-35.9); MEAN CELL VOLUME 91.8 fl (80-96); MEAN PLT VOLUME 8.5 fl (7.5-11.1); PLATELET COUNT 205 10^3/uL (134-434); RBC 4.09 M/mm3 (4.00-5.60); RDW 13.2 % (11.9-15.9); WHITE BLOOD COUNT 9.7 K/mm3 (4.0-10.0)
[2024-05-10 11:00] LABS: CHLORIDE 105 mmol/L (98-107); POTASSIUM 3.5 mmol/L (3.5-5.1); SODIUM 139 mmol/L (136-145)
[2024-05-10 11:08] LABS: ALBUMIN 3.3 g/dl (3.4-5.0); ANION GAP 6 mmol/L (4-13); BLOOD UREA NITROGEN 22.6 mg/dL (7-18); CALCIUM 8.7 mg/dL (8.5-10.1); CO2 28 mmol/L (21-32); GLUCOSE,RANDOM 133 mg/dL (74-106)
[2024-05-10 11:11] LABS: CREATININE 1.1 mg/dL (0.55-1.3); SGOT/AST 22 U/L (15-37); SGPT/ALT 37 U/L (13-61)
[2024-05-10 11:13] LABS: BILIRUBIN,TOTAL 0.6 mg/dL (0.2-1)
[2024-05-10 11:14] LABS: ALK PHOS 80 U/L (45-117)
[2024-05-10] MEDS ORDERED: ATORVASTATIN CA 10 MG TABLET (FP) PO SCH (22:00)
[2024-05-10] MEDS ORDERED: SUVOREXANT 10 MG TABLET PO PRN (22:00)
[2024-05-11] MEDS ORDERED: LORazepam 1 MG TABLET PO SCH (05:00)
[2024-05-12] MEDS ORDERED: LORazepam 0.5 MG TABLET PO PRN
[2024-05-12] MEDS ORDERED: LORazepam 0.5 MG TABLET PO SCH (05:00)
[2024-05-13] MEDS ORDERED: LORazepam 0.5 MG TABLET PO ONE (05:00)
== END 2024-05-10 10:25 | disposition left against medical advice (07) | DRG 894 ==
LOC: YASAS 18:35 → Y6N 20:12
PROVIDERS: ADMIT Allergy & Immunology; ATTEND Allergy & Immunology
PROC: HZ2ZZZZ Detoxification Services for Substance Abuse Treatment (ICD-10-PCS; principal; 2024-05-09)
DX: F10.230 Alcohol dependence with withdrawal, uncomplicated (principal); F10.282 Alcohol dependence with alcohol-induced sleep disorder; F20.9 Schizophrenia, unspecified; E78.2 Mixed hyperlipidemia; E03.9 Hypothyroidism, unspecified; I10 Essential (primary) hypertension; N40.1 Benign prostatic hyperplasia with lower urinary tract symptoms; R33.8 Other retention of urine
CPT/HCPCS: 36415; 80053; 80307; 85027; 86780; 93005; 93010